=== PATIENT | male | born 1980 | race Two or more races ===

== ENCOUNTER 2020-07-20 11:04 | Emergency (ER) | payer SELFPAY ==
[2020-07-20 11:24] VITALS: BP 136/74; PULSE 98; RESP 18; TEMP 37.1; O2SAT 98; BMI 30.1
[2020-07-20] MEDS: cephALEXin 500 MG CAPSULE PO (12:13)
[2020-07-20] MEDS: Lidocaine HCl 1 % MPF 5 ML VIAL SUBCUT (12:13)
[2020-07-20] MEDS: Ibuprofen 800 MG TABLET PO (12:13)
--- NOTE | 2020-07-20 12:37 | ED_ITS ---
HPI - Skin/Abscess/Foreign Bdy General Chief complaint: Skin/Abscess/Foreign Body Stated complaint: cyst Time Seen by Provider: 07/20/20 12:02 Source: patient Mode of arrival: ambulatory Limitations: no limitations History of Present Illness HPI narrative: States tender area at the gluteal cleft area for the past s everal days. States he has had abscess in this area before. Denies any fever or chills. MD complaint: abscess/boil Onset (ago): day(s) (2 days ) Tetanus up to date: yes Severity: similar to previous episodes Relieving factors: none Associated symptoms: denies other symptoms Treatments prior to arrival: none Related Data Previous Rx's Medication Instructions Recorded cephalexin [Keflex] 500 mg PO Q8H 10 Days #30 cap 07/20/20 ibuprofen 800 mg PO Q8H PRN #30 tab 07/20/20 sulfamethoxazole-trimethoprim 1 tab PO Q12H 7 Days #14 tab 07/20/20 [Bactrim DS] Allergies Allergy/AdvReac Type Severity Reaction Status Date / Time No Known Allergies Allergy Verified 07/20/20 11:27 [No Known Allergies*] Review of Systems Review of Systems: Constitutional: No Weight loss, No Fever, No Chills, No Night Sweats, No Fatigue, No Malaise ENT/Mouth: No Hearing loss, No Ear Pain, No Nasal Congestion, No Sinus Pain, No Hoarseness, No sore throat, No Rhinorrhea, No Swallowing Difficulty Eyes: No Eye Pain, No Swelling, No Redness, No Foreign Body, No Discharge, No Vision Changes Cardiovascular: No Chest Pain, No SOB, No Dyspnea on Exertion, No Orthopnea, No Edema, No Palpitations Respiratory: No Cough, No Sputum, No Wheezing, No Smoke Exposure, No Dyspnea Gastrointestinal: No Nausea, No Vomiting, No Diarrhea, No Constipation, No ab dominal Pain Genitourinary: No Dysuria, No Urinary Frequency, No Hematuria, No Urinary Incontinence, No Urgency, No Flank Pain, No Urinary Flow Changes, No Hesitancy Musculoskeletal: No joint pain, No Myalgias, No Joint Swelling Skin: No Skin Lesions, No rash, As noted in HPI Neuro: No Weakness, No Numbness, No Paresthesias, No Loss of Consciousness, No Dizziness, No Headache Psych: No Social Issues Heme/Lymph: No Bruising, No Bleeding,No Lymphadenopathy Endocrine: No Polyuria, No Polydipsia, No Temperature Intolerance Yes all other systems are reviewed and are negative [facility] Social History Social History Advance Directives: No Advance Directives Information Provided: No Physical Exam Vital Signs: Vital Signs: Last Vital Signs Temp 98.7 F 07/20/20 11:24 Pulse 98 07/20/20 11:24 Resp 18 07/20/20 11:24 BP 136/74 07/20/20 11:24 Pulse Ox 98 07/20/20 11:24 Body Mass Index 30.1 Reviewed Const: General: cooperative and healthy appearing; No acute distress or intoxicated appearing Nutritional Appearance: average body habitus Orientation/consciousness: patient oriented x3 HENMT: Head: Yes normal to inspection Ears: hearing grossly normal bilaterally Chest: Chest palpation & inspection: normal inspection of the chest Resp: Effort & Inspection: normal respiratory effort Cardio: Jugular venous distension: no JVD Rhythm: regular rhythm Heart sounds: S1 normal heart sound present and S2 normal heart sound present : General: Yes no CVA tenderness Back/Spine/Pelvis: Back: no CVA tenderness Skin: General skin exam: no rashes or lesions noted Neuro: General: patient oriented x3 Extrem: General: Yes normal to inspection Upper/lower leg/hip images: 1. Slightly indurated area starting at the gluteal cleft. This measures 2 cm x 6 cm linearly down towards the gluteal cleft. There is erythema directly over this area but no erythema extending away from this. There is tender palpation. Course Course Course Narrative: Pilonidal cyst with superficial cellulitis indurated site lanced using sterile technique with local anesthetic with drainage of slight purulent discharge and subsequently packed and dry sterile dressing applied. Patient tolerated procedure very well he was given 1st dose of antibiotics here as well as ibuprofen. Was given work note. Please refer to the full procedure note for the I and D of the pilonidal abscess. Patient instructed her in 2 days for packing removal/checked. Procedures Abscess I/D Site: other ( Pilonidal cyst) Local Anesthetic: lidocaine 1% Amount of anesthesia used (mL): 5 Technique: incised with blade Amount of fluid expressed (mL): 6 Irrigation: Yes Packing used?: plain Complications: other ( no complications.) Discharge Plan Discharge Clinical Impression: Cyst, pilonidal, with abscess Cellulitis Qualifiers: Site of cellulitis: buttock Qualified Code(s): L03.317 - Cellulitis of buttock Patient Disposition: Home, Self-Care Instructions: Pilonidal Cyst (ED), Abscess (ED) Additional Instructions: warm compresses Change top dressing twice a day and more frequently for become soiled Leave the packing in place over the next 2 days Return in 2 days for packing removal/ wound check Take antibiotic as prescribed Return sooner if any concerns worsening symptoms Thank you Prescriptions: New ibuprofen 800 mg tablet 800 mg PO Q8H PRN (Reason: pain) Qty: 30 RF: 0 sulfamethoxazole-trimethoprim [Bactrim DS] 800-160 mg tablet 1 tab PO Q12H 7 Days Qty: 14 RF: 0 cephalexin [Keflex] 500 mg capsule 500 mg PO Q8H 10 Days Qty: 30 RF: 0 Referrals: Jaden Pastor, [employer]CHIT[employer] [Emergency Midlevel Provider] - 2 days ( pilonidal cyst/packing will) Stand Alone Forms: Work/School Release Interventions: ED Discharge Assessment Last Done: 07/20/20 12:49 Discharge Date/Time: 07/20/20 12:51
== END 2020-07-20 12:51 | disposition home or self-care (01) ==
PROVIDERS: Emergency Provider Emergency Medicine
DX: L05.01 Pilonidal cyst with abscess (principal); L03.317 Cellulitis of buttock
CPT/HCPCS: 10080; 99283; 99284

== ENCOUNTER 2020-07-22 11:07 | Emergency (ER) | payer SELFPAY ==
[2020-07-22 11:14] VITALS: BP 120/73; PULSE 100; RESP 14; TEMP 36.6; O2SAT 99; BMI 29.9
--- NOTE | 2020-07-22 11:14 | ED.WOUNDLAC ---
HPI - Wound/Laceration General Chief Complaint: Wound/Laceration Stated Complaint: WOUND CHECK Time Seen by Provider: 07/22/20 11:13 Source: patient Mode of arrival: ambulatory Limitations: no limitations History of Present Illness HPI narrative: 40 y/o male presenting for wound re-check. He was seen here on 07/20 - had pilonidal cyst incised, drained and backed. He was prescribed Keflex and Bactrim. He reports feeling much better but he also reports a fever of 102 last night. No increased drainage. Pain is improving. Onset (ago): day(s) (4) Location: back (upper buttocks ) Body four view annotation: 1. wound w/ packing Patient tetanus UTD: Yes Associated symptoms: pain Treatments prior to arrival: bandage Related Data Previous Rx's Medication Instructions Recorded cephalexin [Keflex] 500 mg PO Q8H 10 Days #30 cap 07/20/20 ibuprofen 800 mg PO Q8H PRN #30 tab 07/20/20 sulfamethoxazole-trimethoprim 1 tab PO Q12H 7 Days #14 tab 07/20/20 [Bactrim DS] Allergies Allergy/AdvReac Type Severity Reaction Status Date / Time No Known Allergies Allergy Verified 07/20/20 11:27 [No Known Allergies*] Review of Systems Review of Systems: Constitutional: No Fever, No Chills Cardiovascular: No Chest Pain, No SOB Respiratory: No Cough, No Sputum Gastrointestinal: No Nausea, No Vomiting, No Diarrhea, No abdominal Pain Musculoskeletal: No joint pain, No Myalgias Skin: No Skin Lesions, No rash , +wound Heme/Lymph: No Bruising, No Lymphadenopathy PMFSH Past Medical History Attestation statement: The following information was validated with the patient. Social History Social History Advance Directives: No Advance Directives Information Provided: No Physical Exam Vital Signs: Vital Signs: Last Vital Signs Temp 98 F 07/22/20 11:14 Pulse 100 07/22/20 11:14 Resp 14 07/22/20 11:14 BP 120/73 07/22/20 11:14 Pulse Ox 99 07/22/20 11:14 Body Mass Index 29.9 Appearance: Alert. Oriented X3. No acute distress. HEENT: normal inspection CVS: Normal heart rate and rhythm. Pulses normal. Respiratory: No respiratory distress. Skin: Skin warm and dry. Normal skin color. Normal skin turgor. No rashes. Back: upper buttock/low lumbar area with large 6-7 cm area of erythema, tenderness with central fluctuance. small prior incision distally noted. no drainage. Neuro: Oriented X 3. Non-focal Course Course Course Narrative: 40 y/o male with infected pilonidal cyst s/p I&D on 07/20 presenting for wound recheck and packing change. Abscess is increased in size, requiring additional drainage and packing. See I&D note. Culture sent. No septic at this time. Will continue to broad spectrum abx and patient will return in 2 days for re-evaluation. If he has persistent fevers he was instructed to return to ER sooner. Patient expressed understanding and he was encouraged to f/u with General Surgery given this has been a recurrent issue over the last 4 years. Stable for d/c. Critical Care Time Critical Care Time Critical Care Time: No Discharge Plan Discharge Clinical Impression: Pilonidal cyst with abscess Patient Disposition: Home, Self-Care Additional Instructions: Continue to take the previously prescribed antibiotics. Monitor for worsening signs of infection including fevers, redness, warmth, increased drainage or pain. If these develop come back to the ER right away. Come back to the ER in 2 days for another wound evaluation and packing removal. Recommend follow up with General Surgery for managment. Prescriptions: No Action ibuprofen 800 mg tablet 800 mg PO Q8H PRN (Reason: pain) Qty: 30 RF: 0 sulfamethoxazole-trimethoprim [Bactrim DS] 800-160 mg tablet 1 tab PO Q12H 7 Days Qty: 14 RF: 0 cephalexin [Keflex] 500 mg capsule 500 mg PO Q8H 10 Days Qty: 30 RF: 0 Referrals: Isa Macedo MD [Physician] - 2 days Stand Alone Forms: Work/School Release
[2020-07-22] MEDS: Lidocaine HCl 2 % MPF 5 ML VIAL INFILTRATI (12:14)
--- NOTE | 2020-07-22 12:17 | PC.NURSE ---
cy luo in to assess, perform i&d, obtain wound cx, pack wound site and apply dsd
== END 2020-07-22 12:34 | disposition home or self-care (01) ==
LOC: HO.ED 11:28
PROVIDERS: Emergency Provider Emergency Medicine
DX: L05.01 Pilonidal cyst with abscess (principal)
CPT/HCPCS: 87071; 87205; 99283; 99284

== ENCOUNTER 2020-08-18 11:46 | Emergency (ER) | payer SELFPAY ==
[2020-08-18 14:05] VITALS: BP 139/80; PULSE 81; RESP 16; TEMP 36.9; O2SAT 99; BMI 30.1
[2020-08-18] MEDS: Lidocaine HCl 1 % MPF 5 ML VIAL SUBCUT ×2 (15:06)
--- NOTE | 2020-08-18 15:52 | ED.SKABFB ---
HPI - Skin/Abscess/Foreign Bdy General Chief complaint: Skin/Abscess/Foreign Body Stated complaint: cyst Time Seen by Provider: 08/18/20 14:33 Source: patient Mode of arrival: ambulatory History of Present Illness HPI narrative: 40-year-old male with a past medical history pilondial cyst S/P two I&D's last month presenting to the ED complaining of recurrent abscess/cyst to back x4 days. Denies drainage from area. Reports chills. Denies fever, abdominal pain, pain with bowel movement/rectal involvement MD complaint: abscess/boil Related Data Previous Rx's Medication Instructions Recorded cephalexin [Keflex] 500 mg PO Q8H 10 Days #30 cap 07/20/20 ibuprofen 800 mg PO Q8H PRN #30 tab 07/20/20 sulfamethoxazole-trimethoprim 1 tab PO Q12H 7 Days #14 tab 07/20/20 [Bactrim DS] amoxicillin-pot clavulanate 1 tab PO Q12H 7 Days #14 tab 08/18/20 [Augmentin] doxycycline hyclate 100 mg PO BID 7 Days #14 tab 08/18/20 Allergies Allergy/AdvReac Type Severity Reaction Status Date / Time No Known Allergies Allergy Verified 07/20/20 11:27 [No Known Allergies*] Review of Systems Review of Systems: Constitutional: No Weight loss, No Fever, + Chills Gastrointestinal: No Nausea, No Vomiting, No Diarrhea, No Constipation, No Abdominal pain Skin: + abscess Yes all other systems are reviewed and are negative PMFSH Past Medical History Attestation statement: The following information was validated with the patient. Surgical History (Updated 08/18/20 @ 14:07 by Shy Pablo) H/O thumb surgery Social History Social History Advance Directives: No Advance Directives Information Provided: No Physical Exam Vital Signs: Vital Signs: Last Vital Signs Temp 98.4 F 08/18/20 14:05 Pulse 81 08/18/20 14:05 Resp 16 08/18/20 14:05 BP 139/80 08/18/20 14:05 Pulse Ox 99 08/18/20 14:05 Body Mass Index 30.1 Const: General: cooperative, healthy appearing and no acute distress Orientation/consciousness: patient oriented x3 Limitations: no limitations HENMT: Head: Yes normal to inspection Ears: hearing grossly normal bilaterally General nose exam: Normal external nose present Face and sinus: Yes normal facial exam Eyes: General: appearance normal, both eyes and all related structures EOM: EOMs intact bilaterally Neck: Neck: Yes normal visual inspection Resp: Effort & Inspection: normal respiratory effort GI: Inspection: Yes normal to inspection : Other: Infected pilonidal abscess noted with fluctuance and induration. Mild surrounding cellulitis. No rectal involvement Skin: Rashes: no rashes Neuro: General: patient oriented x3 Gait exam (Neuro): Normal gait present Extrem: General: Yes normal to inspection Procedures Abscess I/D Site: back Local Anesthetic: lidocaine 1% Amount of anesthesia used (mL): 6 Technique: incised with blade Sent for culture/gram staining?: No Packing used?: iodoform MDM - Skin/Abscess/Foreign Bdy MDM Narrative Medical decision making narrative: On exam VSS, in NAD, pilonidal abscess/cyst noted with mild surrounding cellulitis. Will perform I & D. Will change antibiotics due to recent antibiotic use. Discussed with patient importance of following up with surgeon which he verbalized Discharge Plan Discharge Clinical Impression: Abscess Patient Disposition: Home, Self-Care Instructions: Abscess (ED), Abscess Follow-up (ED) Additional Instructions: You had infected abscess in her pilonidal region Augmentin and doxycycline or antibiotics, take as prescribed You need to return to the emergency department in 2 days to have her packing removed If you develop fever, chills, area begins to swell/drain pus, return to the ED sooner It is normal for the area to have slight drainage for the next 24 hours, however if it is worsening or persistent return to the ED sooner Prescriptions: New doxycycline hyclate 100 mg tablet 100 mg PO BID 7 Days Qty: 14 RF: 0 amoxicillin-pot clavulanate [Augmentin] 875-125 mg tablet 1 tab PO Q12H 7 Days Qty: 14 RF: 0 No Action ibuprofen 800 mg tablet 800 mg PO Q8H PRN (Reason: pain) Qty: 30 RF: 0 sulfamethoxazole-trimethoprim [Bactrim DS] 800-160 mg tablet 1 tab PO Q12H 7 Days Qty: 14 RF: 0 cephalexin [Keflex] 500 mg capsule 500 mg PO Q8H 10 Days Qty: 30 RF: 0 Referrals: Mima,Mame, MD [Physician] - 1 week Physician,None [Primary Care Provider] - 2 days (Return to the ED in 2 days for packing removal) Interventions: ED Discharge Assessment Last Done: 08/18/20 16:08 Discharge Date/Time: 08/18/20 16:08
== END 2020-08-18 16:08 | disposition home or self-care (01) ==
PROVIDERS: Emergency Provider Emergency Medicine Emergency Medical Services
DX: L05.01 Pilonidal cyst with abscess (principal); L03.312 Cellulitis of back [any part except buttock and flank]
CPT/HCPCS: 10080; 99283; 99284

== ENCOUNTER 2020-09-22 11:31 | Outpatient (REF) | payer OTHER, SELFPAY | END 2020-09-22 11:32 | disposition home or self-care (01) | LOC: HO.LAB 11:31 | PROVIDERS: Visit Provider Internal Medicine | DX: Z20.822 Contact with and (suspected) exposure to COVID-19 (principal) | CPT/HCPCS: 36415; C9803; U0003; U0005 ==

== ENCOUNTER 2021-06-14 19:10 | Emergency (ER) | payer SELFPAY ==
[2021-06-14 19:25] VITALS: BP 153/75; PULSE 120; RESP 18; O2SAT 94; BMI 30.6
[2021-06-14 23:05] VITALS: BP 126/70; PULSE 118; RESP 20; TEMP 37.4; O2SAT 96
[2021-06-14 23:46] LABS: Appearance Urine CLEAR; Color Urine YELLOW; Glucose Urine UA NEG (NEG); Leukocyte Esterase Urine NEG (NEG); Nitrite Urine NEG (NEG); Specific Gravity - Urine >= 1.030 (1.005-1.025); UACC Culture Trigger NO; Urine Blood TRACE (NEG); Urine Ketones 5 MG/DL (NEG); Urine Protein NEG (NEG-TRACE)
[2021-06-14 23:52] LABS: Bacteria Urine TRACE /LPF; Mucus Urine 1+ /LPF; Squamous Epithelial Cell Urine TRACE /LPF; WBC Urine 0-2 /HPF (0-4)
--- NOTE | 2021-06-15 00:26 | PC.NURSE ---
RILEY HENNESSY PERFORMING US AT BEDSIDE TO ABSCESS AREA ON BACK.
--- NOTE | 2021-06-15 01:19 | ED.SKABFB ---
HPI - Skin/Abscess/Foreign Bdy General Chief complaint: Skin/Abscess/Foreign Body Stated complaint: cyst on back Time Seen by Provider: 06/15/21 00:26 Source: patient Mode of arrival: ambulatory Limitations: no limitations History of Present Illness HPI narrative: 41-year-old male with no past medical history presents to ED for pilonidal abscess that has been increasing in size for the past 4 days. Patient states having recurring pilonidal abscess. Patient has no insurance so he can't follow up with surgeon. Patient states low-grade fever and chills. Patient states no nausea vomiting. Related Data Previous Rx's Medication Instructions Recorded cephalexin 500 mg capsule (Keflex) 500 mg PO Q8H 10 Days #30 cap 07/20/20 ibuprofen 800 mg tablet 800 mg PO Q8H PRN #30 tab 07/20/20 sulfamethoxazole 800 1 tab PO Q12H 7 Days #14 tab 07/20/20 mg-trimethoprim 160 mg tablet (Bactrim DS) amoxicillin 875 mg-potassium 1 tab PO Q12H 7 Days #14 tab 08/18/20 clavulanate 125 mg tablet (Augmentin) doxycycline hyclate 100 mg tablet 100 mg PO BID 7 Days #14 tab 08/18/20 cephalexin 500 mg capsule 500 mg PO QID #28 cap 06/15/21 doxycycline hyclate 100 mg capsule 100 mg PO BID 7 Days #14 cap 06/15/21 oxycodone-acetaminophen 5 mg-325 1 tab PO TID PRN #9 tab 06/15/21 mg tablet (Percocet) Allergies Allergy/AdvReac Type Severity Reaction Status Date / Time No Known Allergies Allergy Verified 07/20/20 11:27 [No Known Allergies*] Review of Systems Review of Systems: Yes all other systems are reviewed and are negative Constitutional: Constitutional: Reports as per HPI and Reports no additional constitutional complaints Eyes: Eyes: Reports as per HPI and Reports no additional eye complaints ENT: Reports system reviewed and no additional complaints, except as documented and Reports as per HPI Cardiovascular: Cardiovascular: Reports as per HPI and Reports no additional cardiovascular complaints Respiratory: Respiratory: Reports as per HPI and Reports no additional respiratory complaints Gastrointestinal: Gastrointestinal: Reports as per HPI and Reports no additional gastrointestinal complaints Comments: Pilonidal abscess Genitourinary: Genitourinary: Reports no additional male genitourinary complaints and Reports as per HPI Musculoskeletal: Musculoskeletal: Reports no additional musculoskeletal complaints and Reports as per HPI Neurologic: Reports system reviewed and no additional complaints, except as documented Psychiatric: Psychiatric: Reports no additional psychiatric complaints and Reports as per HPI [facility] Past Medical History Surgical History (Updated 08/18/20 @ 14:07 by Shy Pablo) H/O thumb surgery Social History Social History Advance Directives: No Physical Exam Vital Signs: Vital Signs: Last Vital Signs Temp 99.3 F 06/14/21 23:05 Pulse 118 H 06/14/21 23:05 Resp 20 06/14/21 23:05 BP 126/70 06/14/21 23:05 Pulse Ox 96 06/14/21 23:05 Body Mass Index 30.6 Const: General: cooperative, healthy appearing, comfortable, no acute distress, well developed, alert, awake and Physically active Orientation/consciousness: patient oriented x3 HENMT: Head: Yes normal to inspection, Yes No palpable skull fracture present, Yes normocephalic, Yes atraumatic and No abrasion Eyes: General: appearance normal, both eyes and all related structures Neck: Neck: Yes normal visual inspection, Yes full ROM, Yes no lymphadenopathy, Yes no meningeal signs, Yes trachea midline, Yes supple and No tender Chest: Chest palpation & inspection: normal inspection of the chest and normal palpation of entire chest wall Resp: Effort & Inspection: normal respiratory effort and able to speak in complete sentences Auscultation: clear to auscultation bilaterally Cardio: Jugular venous distension: no JVD Heart sounds: S1 normal heart sound present and S2 normal heart sound present GI: Inspection: Yes normal to inspection and No abdominal wall ecchymosis Palpation (GI): Soft to palpation, not firm, nontender, no guarding and not rigid : General: No CVA tenderness and Yes no CVA tenderness Back/Spine/Pelvis: Back: no CVA tenderness, No CVA tenderness and No back tenderness Back/spine/pelvis image: 1. Pilonidal abscess large, erythematous, tender, fluctuance. Bedside ultrasound shows large pus collection pocket. Skin: General skin exam: no rashes or lesions noted and elasticity normal Neuro: General: patient oriented x3, gait normal, no meningeal signs and CN's II-XI intact bilaterally Cranial nerves: Yes CN's II-XII intact bilaterally Extrem: General: Yes normal to inspection and Yes full ROM Psych: Appearance: grossly normal, well kempt and not disheveled Course Course Course Narrative: Bedside ultrasound shows large amount of fluid. Reevaluation(s) Reevaluation #1: 10 mL of lidocaine 2% anesthesia used. Wound cleaned with sterile saline Betadine iodine. Size 11 blade used for incision. Large copious amount of pus yellow green discharge was squeezed. Forceps used for deeper pockets with produce more pus. Abscess clean with normal saline. Packing placed. Patient will be discharged with antibiotics told to follow-up with surgery. Patient given Tdap Time: 01:21 MDM - Skin/Abscess/Foreign Bdy MDM Narrative Medical decision making narrative: Abscess Lab Data Labs: Lab Results 06/14/21 Range/Units 23:25 Urine Color YELLOW Urine Appearance CLEAR Urine pH 6.0 (5.0-8.0) Ur Specific [place] >= 1.030 H (1.005-1.025) Urine Protein NEG (NEG-TRACE) MG/DL Urine Glucose (UA) NEG (NEG) MG/DL Urine Ketones 5 (NEG) MG/DL Urine Blood TRACE (NEG) Urine Nitrite NEG (NEG) Ur Leukocyte Esterase NEG (NEG) Urine RBC 1-4 (0) /HPF Urine WBC 0-2 (0-4) /HPF Ur Squamous Epith Cells TRACE /LPF Urine Bacteria TRACE /LPF Urine Mucus 1+ /LPF Discharge Plan Discharge Clinical Impression: Abscess of skin or subcutaneous tissue, Pilonidal abscess Patient Disposition: Home, Self-Care Instructions: Pilonidal Cyst (ED), Abscess (ED) Additional Instructions: Return to the ED in 2 days for wound re-evaluation and packing. Return to the ED for severe pain, nausea, vomiting, fever, chills, or any other concerning symptoms. Prescriptions: New cephalexin 500 mg capsule 500 mg PO QID Qty: 28 RF: 0 doxycycline hyclate 100 mg capsule 100 mg PO BID 7 Days Qty: 14 RF: 0 oxycodone-acetaminophen [Percocet] 5-325 mg tablet 1 tab PO TID PRN (Reason: pain) Qty: 9 RF: 0 No Action doxycycline hyclate 100 mg tablet 100 mg PO BID 7 Days Qty: 14 RF: 0 amoxicillin-pot clavulanate [Augmentin] 875-125 mg tablet 1 tab PO Q12H 7 Days Qty: 14 RF: 0 ibuprofen 800 mg tablet 800 mg PO Q8H PRN (Reason: pain) Qty: 30 RF: 0 sulfamethoxazole-trimethoprim [Bactrim DS] 800-160 mg tablet 1 tab PO Q12H 7 Days Qty: 14 RF: 0 cephalexin [Keflex] 500 mg capsule 500 mg PO Q8H 10 Days Qty: 30 RF: 0 Referrals: Julio Moore MD [Physician] - 2 days (Recurrent pilondal abscess) Stand Alone Forms: Work/School Release Interventions: ED Discharge Assessment Last Done: 06/15/21 01:45 Discharge Date/Time: 06/15/21 01:51 Print Language: Stateless
[2021-06-15] MEDS: Diphth,Pertus(ACell),Tet Adult 0.5 ML SYRINGE IM (01:30)
[2021-06-15] MEDS: oxyCODONE HCl Immed Release 5 MG TABLET PO (01:30)
[2021-06-15] MEDS: Lidocaine HCl 2 % MPF 5 ML VIAL INFILTRATI ×2 (01:31)
--- NOTE | 2021-06-15 01:44 | PC.NURSE ---
PT ABSCESS DRAINED LARGE COPIOUS AMOUNTS OF PUSS REMOVED PACKING APPLIED BY RILEY HENNESSY AND MICHELLE.
== END 2021-06-15 01:51 | disposition home or self-care (01) ==
PROVIDERS: Emergency Provider Emergency Medicine
DX: L05.01 Pilonidal cyst with abscess (principal)
CPT/HCPCS: 10080; 81001; 87071; 87205; 90471; 90715; 99284

== ENCOUNTER 2021-06-17 12:16 | Emergency (ER) | payer OTHER, SELFPAY ==
[2021-06-17 12:18] VITALS: BP 133/83; PULSE 86; RESP 19; TEMP 36.6; O2SAT 98; BMI 29.9
--- NOTE | 2021-06-17 14:33 | ED.RECABL ---
HPI - Recheck/Abnormal Lab/Rx General Chief Complaint: Wound/Laceration Stated Complaint: wound check Time Seen by Provider: 06/17/21 12:25 Source: patient and family Mode of arrival: ambulatory Limitations: no limitations History of Present Illness MD complaint: wound re-check (Packing) Initial visit (ago): day(s) (Two days ago on 06/15/21) Initial visit for: cellulitis and abscess Returns today for: wound recheck, cellulitis follow-up and other (Packing removal) Symptoms since prior visit: no new symptoms Context: planned re-check Associated symptoms: none Treatments prior to arrival: other (Doxycycline and Keflex And Percocet and taking as prescribed) Related Data Previous Rx's Medication Instructions Recorded cephalexin 500 mg capsule (Keflex) 500 mg PO Q8H 10 Days #30 cap 07/20/20 ibuprofen 800 mg tablet 800 mg PO Q8H PRN #30 tab 07/20/20 sulfamethoxazole 800 1 tab PO Q12H 7 Days #14 tab 07/20/20 mg-trimethoprim 160 mg tablet (Bactrim DS) amoxicillin 875 mg-potassium 1 tab PO Q12H 7 Days #14 tab 08/18/20 clavulanate 125 mg tablet (Augmentin) doxycycline hyclate 100 mg tablet 100 mg PO BID 7 Days #14 tab 08/18/20 cephalexin 500 mg capsule 500 mg PO QID #28 cap 06/15/21 doxycycline hyclate 100 mg capsule 100 mg PO BID 7 Days #14 cap 06/15/21 oxycodone-acetaminophen 5 mg-325 1 tab PO TID PRN #9 tab 06/15/21 mg tablet (Percocet) Allergies Allergy/AdvReac Type Severity Reaction Status Date / Time No Known Allergies Allergy Verified 07/20/20 11:27 [No Known Allergies*] Review of Systems Review of Systems: Constitutional : No Fever, No Chills, Cardiovascular : No Chest Pain, No SOB Respiratory : No Dyspnea Gastrointestinal : No abdominal pain Musculoskeletal : No Joint Swelling Skin : positive skin wound that is healing with packing place, no skin laceration, No Foreign bodies, No rash, No surrounding erythema Neuro : No Weakness, No Numbness/tingling Psych : No SI/HI/thoughts of self injury Yes all other systems are reviewed and are negative PMFSH Past Medical History Attestation statement: The following information was validated with the patient. Surgical History H/O thumb surgery Social History Social History Advance Directives: No Physical Exam Vital Signs: Vital Signs: Last Vital Signs Temp 98 F 06/17/21 12:18 Pulse 86 06/17/21 12:18 Resp 19 06/17/21 12:18 BP 133/83 06/17/21 12:18 Pulse Ox 98 06/17/21 12:18 Body Mass Index 29.9 vital signs have been reviewed as normal and appeared to be correct. Blood pressure normal Heart rate normal. Respiration rate normal. Temperature normal. Oxygen saturation normal. Appearance: Alert. Oriented X3. No acute distress. Head: Normal external exam. Normocephalic. Atraumatic. Eyes: PERRLA. EOMI. Conjunctiva and sclera normal. Eyelids normal. ENT: Pharynx normal. Uvula midline. Moist mucous membranes. Neck: Normal inspection. Neck supple. FROM. CVS: Normal heart rate and rhythm. Respiratory: No respiratory distress. Painless inspiration. Skin: Skin warm and dry. Normal skin color. Normal skin turgor. To pilonidal aspect patient has packing in place when I removed the packing no purulent drainage is noted. No rashes/lesions/lacerations noted. Extremities: Extremities exhibit normal range of motion. Extremities nontender. Neuro: Oriented X 3. No motor deficit. No sensory deficit. Reflexes normal. Normal steady gait. No focal neuro deficits noted. Course Course Course Narrative: Patient now status post packing removal. Patient tolerated procedure well. No complications. No additional packing indicated at this time. It was irrigated. No additional drainage noted. Therefore will DC home with instructions return if any new or worsening symptoms follow-up with general surgeon and to continue taking his antibiotics as previously prescribed. Patient and significant other at bedside understand and agree to this plan. MDM - Recheck/Abnormal Lab/Rx Medical Records Attestation: I reviewed the patient's medical records. Discharge Plan Discharge Clinical Impression: Visit for wound check, Abscess packing removal Patient Disposition: Home, Self-Care Instructions: Abscess Follow-up (ED) Prescriptions: No Action doxycycline hyclate 100 mg tablet 100 mg PO BID 7 Days Qty: 14 RF: 0 amoxicillin-pot clavulanate [Augmentin] 875-125 mg tablet 1 tab PO Q12H 7 Days Qty: 14 RF: 0 ibuprofen 800 mg tablet 800 mg PO Q8H PRN (Reason: pain) Qty: 30 RF: 0 sulfamethoxazole-trimethoprim [Bactrim DS] 800-160 mg tablet 1 tab PO Q12H 7 Days Qty: 14 RF: 0 cephalexin [Keflex] 500 mg capsule 500 mg PO Q8H 10 Days Qty: 30 RF: 0 cephalexin 500 mg capsule 500 mg PO QID Qty: 28 RF: 0 doxycycline hyclate 100 mg capsule 100 mg PO BID 7 Days Qty: 14 RF: 0 oxycodone-acetaminophen [Percocet] 5-325 mg tablet 1 tab PO TID PRN (Reason: pain) Qty: 9 RF: 0 Referrals: Julio Moore MD [Physician] - 2 days (For recurrent pilonidal abscesses call to make a follow-up appointment within the next month) Stand Alone Forms: Work/School Release Print Language: Lithuanian
== END 2021-06-17 14:44 | disposition home or self-care (01) ==
PROVIDERS: Emergency Provider Emergency Medicine Emergency Medical Services
DX: Z48.01 Encounter for change or removal of surgical wound dressing (principal)
CPT/HCPCS: 99283

== ENCOUNTER 2023-01-13 21:37 | Inpatient (IN) | payer OTHER, SELFPAY ==
--- NOTE | ~2023-01-13 | XR_ITS ---
EXAMINATION: XR CHEST CLINICAL INFORMATION: Dyspnea COMPARISON: None available. TECHNIQUE: 2 views of the chest were obtained. FINDINGS: Cardiac the mediastinal contours are within normal limits for technique. No consolidation, pneumothorax, or pleural effusion. Bronchial wall thickening is suspected in the perihilar regions. No acute osseous findings. 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 XR/XR chest 2V IMPRESSION: Bronchial wall thickening can be seen with a small airways process such as asthma or atypical/viral infection. No focal consolidation.
[2023-01-13 21:43] VITALS: BP 104/81; PULSE 100; RESP 18; TEMP 36; O2SAT 97; BMI 34.5
[2023-01-13 22:08] LABS: MANUAL DIFF FLAG NO
[2023-01-13 22:10] LABS: Basophils Percent Auto 0.3 % (0-2); Eosinophils Absolute Auto 0.1 X10*3/uL (0.0-0.4); Eosinophils Percent Auto 0.6 % (0-4); Hemoglobin 13.4 g/dl (14.0-18.0); Imm Gran Abs Auto 0.02 X10*3/uL (0.00-0.03); Imm Gran Pct Auto 0.2 % (0.0-0.4); Lymphocytes Absolute Auto 2.6 X10*3/uL (1.2-4.9); Lymphocytes Percent Auto 27.4 % (20-40); Mean Corpuscular HGB Conc 32.7 g/dl (31.0-36.0); Mean Corpuscular Hemoglobin 31.5 pg (27.0-33.0); Mean Corpuscular Volume 96.5 fL (80.0-98.0); Mean Platelet Volume 9.9 fL (9.4-12.4); Monocytes Absolute Auto 0.5 X10*3/uL (0.1-1.2); Monocytes Percent Auto 5.8 % (2-11); Neutrophils Absolute Auto 6.1 x10*3/uL (2.0-8.3); Neutrophils Percent Auto 65.7 % (45-73); Platelet Count 226 X10*3/uL (160-400); Red Blood Count 4.25 X10*6/uL (4.60-5.80); Red Cell Distribution Width 14.5 % (11.0-16.0); White Blood Count 9.3 X10*3/uL (4.8-10.8)
[2023-01-13 22:29] LABS: Alanine Aminotransferase 35 U/L (0-40); Albumin Level 3.9 g/dL (3.5-5.0); Alkaline Phosphatase 72 U/L (39-117); Anion Gap 12 (12-20); Aspartate Amino Transferase 29 U/L (5-37); Bilirubin Total 0.3 mg/dL (0.0-1.0); Blood Urea Nitrogen 13 mg/dL (9-16); Carbon Dioxide 23 mmol/L (22-29); Chloride 110 mmol/L (96-108); Creatinine Clr Calc Pharmacy 128.7; Estimated Glomerular Filt Rate > 60; Glucose Random 113 mg/dL (60-115); Potassium 4.4 mmol/L (3.3-5.1); Sodium 141 mmol/L (135-145); Total Protein 6.7 g/dL (6.5-8.0)
[2023-01-13 22:32] LABS: B Type Natriuretic Peptide 540 pg/mL (<100)
[2023-01-14 01:13] VITALS: BP 125/83; PULSE 93; RESP 18; TEMP 36.8; O2SAT 96
--- NOTE | 2023-01-14 01:36 | ED_ITS ---
HPI - SOB/Dyspnea General Chief Complaint: Dyspnea Stated Complaint: difficulty breathing/ swollen feet Time Seen by Provider: 01/14/23 01:20 Source: patient and family Mode of arrival: ambulatory Limitations: no limitations History of Present Illness HPI Narrative: 42-year-old male smoker came in for evaluation of shortness of breath. For the past months patient been having exertional dyspnea, PND, bilateral +2 edema to lower extremities. No chest pain, no recent sickness, no sick contact. No history of CHF. Related Data Previous Rx's Medication Instructions Recorded cephalexin 500 mg capsule (Keflex) 500 mg PO Q8H 10 days #30 caps 07/20/20 ibuprofen 800 mg tablet 800 mg PO Q8H PRN pain #30 tabs 07/20/20 sulfamethoxazole 800 1 tab PO Q12H 7 days #14 tabs 07/20/20 mg-trimethoprim 160 mg tablet (Bactrim DS) amoxicillin 875 mg-potassium 1 tab PO Q12H 7 days #14 tabs 08/18/20 clavulanate 125 mg tablet (Augmentin) doxycycline hyclate 100 mg tablet 100 mg PO BID 7 days #14 tabs 08/18/20 cephalexin 500 mg capsule 500 mg PO QID #28 caps 06/15/21 doxycycline hyclate 100 mg capsule 100 mg PO BID 7 days #14 caps 06/15/21 oxycodone-acetaminophen 5 mg-325 1 tab PO TID PRN pain #9 tabs 06/15/21 mg tablet (Percocet) Allergies Allergy/AdvReac Type Severity Reaction Status Date / Time No Known Allergies Allergy Verified 01/13/23 21:43 [No Known Allergies*] Review of Systems Review of Systems: All other systems are reviewed and are negative Constitutional: Reports as per HPI and Reports no additional constitutional complaints Eyes: Reports as per HPI and Reports no additional eye complaints Reports system reviewed and no additional complaints, except as documented Cardiovascular: Reports as per HPI and Reports no additional cardiovascular complaints Respiratory: Reports as per HPI and Reports no additional respiratory complaints Gastrointestinal: Reports as per HPI and Reports no additional gastrointestinal complaints Genitourinary: Reports no additional female genitourinary complaints Musculoskeletal: Reports no additional musculoskeletal complaints Skin/Breast: Reports system reviewed and no additional complaints, except as docu Psychiatric: Reports no additional psychiatric complaints Endocrine: Reports no additional endocrine complaints Hematologic/Lymphatic: Reports no additional hematologic/lymphatic complaints Allergic/Immunologic: Reports no additional allergic/immunologic complaints Reports system reviewed and no additional complaints, except as documented and Reports Abnormal speech present [facility] Past Medical History Surgical History H/O thumb surgery Social History Social History Alcohol intake: current Alcohol intake frequency: holidays/special occasions only Smoked in Last 30 Days: Yes Use of substances other than those prescribed or required for medical reasons: No Advance Directives: No Advance Directives Information Provided: No Physical Exam Vital Signs: Vital Signs: Last Vital Signs Temp 98.2 F 01/14/23 01:13 Pulse 93 01/14/23 01:13 Resp 18 01/14/23 01:13 BP 125/83 01/14/23 01:13 Pulse Ox 96 01/14/23 01:13 O2 Del Method Room Air 01/14/23 01:13 BMI result Body Mass Index 34.5 Vital signs have been reviewed as appeared to be correct. Blood pressure normal. Heart rate normal. Respiration rate normal. Temperature normal. Oxygen saturation normal. Appearance: Alert. Oriented X3. No acute distress. Head: Normal external exam. Normocephalic. Atraumatic. No Gomez signs noted. No raccoon eyes noted Eyes: PERRLA. EOMI. Conjunctiva and sclera normal. Eyelids normal. ENT: TM's Normal. Pharynx normal. Uvula midline. Moist mucous membranes. No trismus noted. No drooling noted. No muffled voice noted. Neck: Normal inspection. Neck supple. FROM. No adenopathy. Thyroid Normal. No meningeal signs. No neck mass noted. CVS: Normal heart rate and rhythm. Heart sound normal. No murmurs noted. Pulses normal throughout. Respiratory: No respiratory distress. Painless inspiration. Breath sounds normal. Bilateral fine basal rales. Chest nontender. No accessory muscle usage noted or decreased air movement noted. Abdomen: Soft and nontender. Bowel sounds normal in all 4 quadrants. No distention noted. No organomegaly noted. No visible injury noted. Back: No CVA tenderness. Full range of motion noted. Skin: Skin warm and dry. Normal skin color. Normal skin turgor. No rashes/lesions/lacerations noted. Extremities: No lower extremity edema. Extremities exhibit normal range of motion. Extremities nontender. Neuro: Oriented X 3. Cranial nerve exam: II-XII are grossly intact No motor deficit. No sensory deficit. Reflexes normal. Course Course Course Narrative: New onset CHF will give 1 dose of Lasix/aspirin and admitted for further cardiac workup. Medical Decision Making Differential Diagnosis Differential Diagnoses: The differential diagnosis associated with the presentation includes (CHF, pneumonia, pneumothorax, electrolytes abnormalities, severe anemia.) Admission/Observation Consideration of admission/observation: Escalation of care including admission/observation considered Consult Healthcare Provider Management of the patient was discussed with: Hospitalist (Dr. Chacko.) Lab Data MDM Lab Attestation statement: I reviewed the patient's lab results. 01/13/23 21:59 01/13/23 21:59 Labs: Lab Results 01/13/23 01/13/23 01/13/23 Range/Units 21:59 21:59 21:59 WBC 9.3 (4.8-10.8) X10*3/uL RBC 4.25 L (4.60-5.80) X10*6/uL Hgb 13.4 L (14.0-18.0) g/dl Hct 41.0 L (42.0-52.0) % MCV 96.5 (80.0-98.0) fL MCH 31.5 (27.0-33.0) pg MCHC 32.7 (31.0-36.0) g/dl RDW 14.5 (11.0-16.0) % Plt Count 226 (160-400) X10*3/uL MPV 9.9 (9.4-12.4) fL Immature Gran % (Auto) 0.2 (0.0-0.4) % Neut % (Auto) 65.7 (45-73) % Lymph % (Auto) 27.4 (20-40) % [place] % (Auto) 5.8 (2-11) % Eos % (Auto) 0.6 (0-4) % Baso % (Auto) 0.3 (0-2) % Lymph # (Auto) 2.6 (1.2-4.9) X10*3/uL [place] # (Auto) 0.5 (0.1-1.2) X10*3/uL Eos # (Auto) 0.1 (0.0-0.4) X10*3/uL Baso # (Auto) 0.0 (0.0-0.2) X10*3/uL Abs Immat Gran (auto) 0.02 (0.00-0.03) X10*3/uL Absolute Neuts (auto) 6.1 (2.0-8.3) x10*3/uL Absolute Nucleated RBC 0.000 (0.0-0.012) X10*3/uL Nucleated RBC % (auto) 0.0 (0.0-0.2) /100WBC Sodium 141 (135-145) mmol/L Potassium 4.4 (3.3-5.1) mmol/L Chloride 110 H (96-108) mmol/L Carbon Dioxide 23 (22-29) mmol/L Anion Gap 12 (12-20) BUN 13 (9-16) mg/dL Creatinine 0.99 (0.5-1.4) mg/dL Estim Creat Clear Calc 128.7 Estimated GFR > 60 Random Glucose 113 (60-115) mg/dL Calcium 9.0 (8.4-10.2) mg/dL Total Bilirubin 0.3 (0.0-1.0) mg/dL AST 29 (5-37) U/L ALT 35 (0-40) U/L Alkaline Phosphatase 72 (39-117) U/L Troponin I High Sens 15.0 (<3.5-35.0) ng/L B-Natriuretic Peptide (<100) pg/mL Total Protein 6.7 (6.5-8.0) g/dL Albumin 3.9 (3.5-5.0) g/dL 01/13/23 Range/Units 21:59 WBC (4.8-10.8) X10*3/uL RBC (4.60-5.80) X10*6/uL Hgb (14.0-18.0) g/dl Hct (42.0-52.0) % MCV (80.0-98.0) fL MCH (27.0-33.0) pg MCHC (31.0-36.0) g/dl RDW (11.0-16.0) % Plt Count (160-400) X10*3/uL MPV (9.4-12.4) fL Immature Gran % (Auto) (0.0-0.4) % Neut % (Auto) (45-73) % Lymph % (Auto) (20-40) % [place] % (Auto) (2-11) % Eos % (Auto) (0-4) % Baso % (Auto) (0-2) % Lymph # (Auto) (1.2-4.9) X10*3/uL [place] # (Auto) (0.1-1.2) X10*3/uL Eos # (Auto) (0.0-0.4) X10*3/uL Baso # (Auto) (0.0-0.2) X10*3/uL Abs Immat Gran (auto) (0.00-0.03) X10*3/uL Absolute Neuts (auto) (2.0-8.3) x10*3/uL Absolute Nucleated RBC (0.0-0.012) X10*3/uL Nucleated RBC % (auto) (0.0-0.2) /100WBC Sodium (135-145) mmol/L Potassium (3.3-5.1) mmol/L Chloride (96-108) mmol/L Carbon Dioxide (22-29) mmol/L Anion Gap (12-20) BUN (9-16) mg/dL Creatinine (0.5-1.4) mg/dL Estim Creat Clear Calc Estimated GFR Random Glucose (60-115) mg/dL Calcium (8.4-10.2) mg/dL Total Bilirubin (0.0-1.0) mg/dL AST (5-37) U/L ALT (0-40) U/L Alkaline Phosphatase (39-117) U/L Troponin I High Sens (<3.5-35.0) ng/L B-Natriuretic Peptide 540 H (<100) pg/mL Total Protein (6.5-8.0) g/dL Albumin (3.5-5.0) g/dL Independent Interpretation I performed an independent interpretation of an: Plain X-Ray (chest: Bilateral pulmonary edema) Radiology Impression Discussion of test interpretation with radiology: I have reviewed the radiologist's reading. Chronic Conditions Patient?s care impacted by: Other (Cigarette smoking) Discharge Plan Discharge Clinical Impression: Congestive heart failure Patient Disposition: Admitted As Inpatient Prescriptions: No Action doxycycline hyclate 100 mg tablet 100 mg PO BID 7 Days Qty: 14 0RF amoxicillin-pot clavulanate [Augmentin] 875-125 mg tablet 1 tab PO Q12H 7 Days Qty: 14 0RF ibuprofen 800 mg tablet 800 mg PO Q8H PRN (Reason: pain) Qty: 30 0RF sulfamethoxazole-trimethoprim [Bactrim DS] 800-160 mg tablet 1 tab PO Q12H 7 Days Qty: 14 0RF cephalexin [Keflex] 500 mg capsule 500 mg PO Q8H 10 Days Qty: 30 0RF cephalexin 500 mg capsule 500 mg PO QID Qty: 28 0RF doxycycline hyclate 100 mg capsule 100 mg PO BID 7 Days Qty: 14 0RF oxycodone-acetaminophen [Percocet] 5-325 mg tablet 1 tab PO TID PRN (Reason: pain) Qty: 9 0RF
[2023-01-14] MEDS: Aspirin 81 MG TAB.CHEW PO (01:50)
[2023-01-14] MEDS: Furosemide 40 MG/4 ML VIAL IVPUSH ×2 (01:50→20:40)
[2023-01-14 02:20] VITALS: BP 112/85; PULSE 95; RESP 17; TEMP 36.8; O2SAT 95
[2023-01-14 05:27] LABS: Alanine Aminotransferase 34 U/L (0-40); Alkaline Phosphatase 76 U/L (39-117); Anion Gap 14 (12-20); Aspartate Amino Transferase 25 U/L (5-37); Bilirubin Total 0.8 mg/dL (0.0-1.0); Blood Urea Nitrogen 14 mg/dL (9-16); Calcium 9.2 mg/dL (8.4-10.2); Carbon Dioxide 27 mmol/L (22-29); Chloride 107 mmol/L (96-108); Estimated Glomerular Filt Rate > 60; Glucose Random 132 mg/dL (60-115); Potassium 4.1 mmol/L (3.3-5.1); Sodium 144 mmol/L (135-145); Total Protein 6.9 g/dL (6.5-8.0)
--- NOTE | 2023-01-14 05:59 | P.HPHOSP_ITS ---
History of Present Illness Date of Service: 01/14/23 Chief Complaint: Shortness of breath 42-year-old male who denies any past medical history presents the hospital with complaints of shortness of breath. Symptoms going on for 1 week. Has orthopnea, PND, lower extremity edema. Patient reports no history of CHF, denies any chest pain, no palpitations, no headache or change in vision, reports no cough, no sputum production, no abdominal pain nausea or vomiting, no diarrhea constipation, no urinary symptoms. On arrival to the ED patient hemodynamically stable no significant abnormal vitals Labs are significant for WBC count of 9.3, hemoglobin of 13.4, hematocrit of 41, BNP of 540, and troponin of 15 Chest x-ray shows bronchial wall thickening which can be seen in small airway process such as asthma or atypical infection, no consolidation Patient is being admitted for further management Review of Systems Review of Systems: Yes all other systems are reviewed and are negative [facility] Medical History (Updated 01/14/23 @ 06:01 by Mildred Chacko MD) No pertinent past medical history Family History (Updated 01/14/23 @ 06:01 by Mildred Chacko MD) Mother CHF (congestive heart failure) CAD (coronary artery disease) Pertinent family history: Mother had coronary artery disease/heart attack at the age of 57 and she also has CHF Surgical History H/O thumb surgery Social History Alcohol intake: current Alcohol intake frequency: holidays/special occasions only Patient Tobacco Use Status: Current everyday Tobacco user Smoked in Last 30 Days: Yes Use of substances other than those prescribed or required for medical reasons: No Advance Directives: No Advance Directives Information Provided: No Nutrition Risks: No Nutritional Risk Meds Allergies Allergy/AdvReac Type Severity Reaction Status Date / Time No Known Allergies Allergy Verified 01/13/23 21:43 [No Known Allergies*] Active Medications: Current Medications Acetaminophen (Acetaminophen 325 Mg Tablet) 650 mg PO Q6H PRN PRN Reason: Pain, Mild (Pain Scale 1-3) Docusate Sodium (Docusate Sodium 100 Mg Capsule) 100 mg PO DAILY PRN PRN Reason: Constipation Enoxaparin Sodium (Enoxaparin Sodium 40 Mg/0.4 Ml Syringe) 40 mg SUBCUT Q24H MICK Last Admin: 01/14/23 02:30 Dose: Not Given Furosemide (Furosemide 40 Mg Tablet) 40 mg PO DAILY MICK; Protocol Ondansetron HCl (Ondansetron Hcl 4 Mg/2 Ml Vial) 4 mg IVPUSH Q8H PRN PRN Reason: Nausea and Vomiting Sodium Chloride (0.9 % Sodium Chloride Flush 3 Ml Syringe) 3 ml IVFLUSH QSHIFT [facility] Physical Exam Vital Signs and Narrative: Vital Signs: Last Vital Signs Temp 98.2 F 01/14/23 02:20 Pulse 95 01/14/23 02:20 Resp 17 01/14/23 02:20 BP 112/85 01/14/23 02:20 Pulse Ox 95 01/14/23 02:20 O2 Del Method Room Air 01/14/23 02:20 BMI result Body Mass Index 34.5 Const: General: cooperative and no acute distress Orientation/consciousness: patient oriented x3 Eyes: General: appearance normal, both eyes and all related structures Resp: Other: Crackles bilaterally Effort & Inspection: normal respiratory effort Cardio: Rate: regular rate Rhythm: regular rhythm GI: Palpation (GI): Soft to palpation Auscultation: normal bowel sounds Skin: General skin exam: no rashes or lesions noted Neuro: General: patient oriented x3 Cognition (Neuro): normal cognition Extrem: Other: 3+ pitting edema reaching just below the knee Results Labs 01/13/23 21:59 01/14/23 04:52 Labs: Laboratory Results - last 24 hr 01/13/23 01/13/23 01/13/23 21:59 21:59 21:59 MCV 96.5 MCH 31.5 MCHC 32.7 RDW 14.5 Plt Count 226 MPV 9.9 Immature Gran % (Auto) 0.2 Neut % (Auto) 65.7 Lymph % (Auto) 27.4 [place] % (Auto) 5.8 Eos % (Auto) 0.6 Baso % (Auto) 0.3 Lymph # (Auto) 2.6 [place] # (Auto) 0.5 Eos # (Auto) 0.1 Baso # (Auto) 0.0 Abs Immat Gran (auto) 0.02 Absolute Neuts (auto) 6.1 Absolute Nucleated RBC 0.000 Nucleated RBC % (auto) 0.0 Anion Gap 12 Estim Creat Clear Calc 128.7 Estimated GFR > 60 Random Glucose 113 Calcium 9.0 Total Bilirubin 0.3 AST 29 ALT 35 Alkaline Phosphatase 72 Troponin I High Sens 15.0 B-Natriuretic Peptide Total Protein 6.7 Albumin 3.9 01/13/23 01/14/23 21:59 04:52 MCV MCH MCHC RDW Plt Count MPV Immature Gran % (Auto) Neut % (Auto) Lymph % (Auto) [place] % (Auto) Eos % (Auto) Baso % (Auto) Lymph # (Auto) [place] # (Auto) Eos # (Auto) Baso # (Auto) Abs Immat Gran (auto) Absolute Neuts (auto) Absolute Nucleated RBC Nucleated RBC % (auto) Anion Gap 14 Estim Creat Clear Calc 119.0 Estimated GFR > 60 Random Glucose 132 H Calcium 9.2 Total Bilirubin 0.8 AST 25 ALT 34 Alkaline Phosphatase 76 Troponin I High Sens B-Natriuretic Peptide 540 H Total Protein 6.9 Albumin 4.0 Imaging Radiologist's Impressions: Impressions Chest X-Ray 01/13/23 06:38 IMPRESSION: Bronchial wall thickening can be seen with a small airways process such as asthma or atypical/viral infection. No focal consolidation. Assessment and Plan (1) Acute exacerbation of CHF (congestive heart failure): Status: Acute (2) New onset of congestive heart failure: Status: Acute Plan 42-year-old male with history of tobacco use smokes about 3-4 cigarettes daily, with no other mentioned past medical history presents the hospital with shortness of breath found to be new onset CHF # acute CHF exacerbation/new onset - no risk factors that he is aware of, patient does not visit doctor very often, but denies having ever had history of diabetes, hypertension, - does smoke 3-4 cigarettes daily - has family history of CAD of his mama the age of 57 - has elevated BNP, orthopnea, PND, as well as lower extremity edema - at this time will treat with IV Lasix - duct I&O, daily weight, low-sodium diet - cardiology consulted - echocardiogram - troponin negative x1 DVT prophylaxis: Lovenox Given patient's need for further evaluation of CHF patient will require minimum 2 nights inpatient hospital stay for further management and monitoring Time Spent With Patient Time: Total time managing care of this patient today ____ minutes. Quality Stroke Does the patient have a stroke diagnosis?: No VTE Prior VTE?: No VTE Risk Level:: Medical - moderate - high VTE Device Contraindication: Treatment Not Indicated VTE Drug Contraindication: N/A - Med Ordered
--- NOTE | 2023-01-14 07:00 | CA_ITS ---
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 There is normal left ventricular wall thickness. The left ventricular systolic function is severely decreased. The visually estimated ejection fraction is between 15-20%. - E/E prime ratio is >15, consistent with elevated filling pressures. - Normal right ventricular cavity size. There is borderline right ventricular systolic function. - The left atrium is severely dilated. - The right ventricular systolic pressure is 45 mmHg. Significantly elevated right atrial pressure. Mild to moderate pulmonary hypertension is present. - The inferior vena cava is dilated and collapses less than 50% with inspiration. Findings Procedure Information Contrast agent, definity, is being given per protocol without apparent complications. Left Ventricle Severely increased left ventricular cavity size. There is normal left ventricular wall thickness. The left ventricular systolic function is severely decreased. The visually estimated ejection fraction is between 15 20%. There is severe global hypokinesis. Abnormal diastolic function is noted. Spectral Doppler is indicative of a pseudonormal filling pattern. E/E prime ratio is >15, consistent with elevated filling pressures. Right Ventricle Normal right ventricular cavity size. There is borderline right ventricular systolic function. Atria The left atrium is severely dilated. Aortic Valve Normal aortic valve structure and function. There is no aortic valve stenosis. There is no aortic valve regurgitation. Mitral Valve The mitral valve appears normal. There is trace mitral valve regurgitation. There is no mitral valve stenosis. Pulmonic Valve The pulmonic valve is likely normal. Tricuspid Valve Normal tricuspid valve structure and function. There is trace tricuspid valve regurgitation. The right ventricular systolic pressure is 45 mmHg. Significantly elevated right atrial pressure. Mild to moderate pulmonary hypertension is present. Great Vessels All visible segments of the aorta are normal in size. The visualized portions of the pulmonary artery and branches are normal. Venous The inferior vena cava is dilated and collapses less than 50% with inspiration. Pericardium/Pleural There is no evidence of pericardial effusion. Measurements 2D Linear Measurements IVSd: 1.07 0.6-0.9/0.6-1.0 cm LVIDd: 7.26 3.9-5.3/4.2-5.9 cm LVIDd Index: 3.08 2.4-3.2/2.2-3.1 cm/m2 LVIDs: 6.74 2.0-3.6 cm LVPWd: 1.04 0.7-1.1 cm Ao Root: 2.90 2.1-3.5 cm LA Diam: 4.60 2.7-3.8/3.0-4.0 cm LAIDs Index: 1.95 1.5-2.3 cm/m2 LV Mass: 457.60 67-162/88-224 g LV Mass Index: 193.90 43-95/49-115 g/m2 LVOT Diam: 2.40 3.0+(-)1.3 cm Mitral Valve MV Pk E: 0.82 MV PK A: 0.43 MV Decel Time: 115.00 E/A: 1.90 E'Lateral: 3.05 E'Medial: 3.26 E/E' Med: 25.20 E/E' Lat: 27.00 PHT: 34.00 MVA PHT: 6.47 Decel Wilkinson: 7.17 Aortic Valve AoV Pk Keith: 0.73 AoV Mn Keith: 0.50 AoV VTI: 0.13 AoV Pk Grad: 2.00 Aov Mn Grad: 1.00 RADHA Cont.VTI: 2.08 LVOT LVOT Pk Keith: 0.39 LVOT Mn Keith: 0.24 LVOT VTI: 0.06 LVOT Pk Grad: 1.00 LVOT Mn Grad: 0.00 LVOT Diam: 2.40 LVOT Area: 4.52 Diastolic Function MV Pk E: 0.82 MV Pk A: 0.43 E/A: 1.90 E'Medial: 3.26 E/E' Med: 25.20 E' Laterial: 3.05 E/E' Lat: 27.00 Tricuspid Valve TR Pk Keith: 2.42 TR Pk Grad: 23.00 RVSP: 45.00 Great Vessels Aorta Ao Root-2D: 2.90 2.0-3.7 cm Ao Asc: 2.70 2.1-3.4 cm Pulmonary Valve PV Pk Keith: 0.77 Peak PV Grad: 2.00 Updated in Other Vendor System with Status of Final Alireza Bailey MD electronically signed on 01/14/2023 2:32:56 PM with status of Final
[2023-01-14 08:08] LABS: Estimated Average Glucose 111 mg/dL; Hemoglobin A1c % 5.5 %
--- NOTE | 2023-01-14 09:00 | PHA.MEDREC ---
Pharmacy Consult ? Medication Reconciliation Pharmacy has completed the medication reconciliation. spoke with patient. Takes no medications at home. Claim history validates.
[2023-01-14] MEDS: Furosemide 40 MG TABLET PO (09:10)
[2023-01-14] MEDS: 0.9 % Sodium Chloride Flush 3 ML SYRINGE IVFLUSH ×2 (09:11→20:41)
[2023-01-14 09:18] LABS: Troponin-I High Sensitivity 12.4 ng/L (<3.5-35.0)
[2023-01-14 11:03] LABS: Adenovirus PCR Not Detected (Not Detect.); Bordetella parapertussis PCR Not Detected (Not Detect.); Bordetella pertussis PCR Not Detected (Not Detect.); Chlamydia pneumoniae PCR Not Detected (Not Detect.); Coronavirus 229E PCR Not Detected (Not Detect.); Coronavirus HKU1 PCR Not Detected (Not Detect.); Coronavirus NL63 PCR Not Detected (Not Detect.); Coronavirus OC43 PCR Not Detected (Not Detect.); Human metapneumovirus PCR Not Detected (Not Detect.); Influenza A PCR Not Detected (Not Detect.); Influenza B PCR Not Detected (Not Detect.); SARS-CoV-2 PCR Not Detected (Not Detect.)
[2023-01-14 11:04] LABS: Mycoplasma pneumoniae PCR Not Detected (Not Detect.); Parainfluenza 1 PCR Not Detected (Not Detect.); Parainfluenza 2 PCR Not Detected (Not Detect.); Parainfluenza 3 PCR Not Detected (Not Detect.); Parainfluenza 4 PCR Not Detected (Not Detect.); RSV PCR Not Detected (Not Detect.); Rhino/Enterovirus PCR Not Detected (Not Detect.)
[2023-01-14 11:38] LABS: B Type Natriuretic Peptide 580 pg/mL (<100)
--- NOTE | 2023-01-14 12:42 | P.CONCA_ITS ---
History of Present Illness History of Present Illness Date of Service: 01/14/23 Requesting physician: Abe Chan Chief complaint: Acute CHF Narrative: Pleasant 42 year gentleman who is presenting with lower extremity edema and shortness of breath. He has been experiencing PND. These symptoms go back 3 weeks. He has no previous history. He drinks alcohol 4 days a week. With these symptoms presenting to emergency department and was noticed to be in acute congestive heart failure. He has been on IV diuretics since then. He is improving. He still has peripheral edema. No chest discomfort. Mother has coronary disease diagnosed in 50s. No drug abuse history. Not using any prescription or [id number] medications. No history of recent viral illness. [facility] Past Medical History Medical History (Updated 01/14/23 @ 06:01 by Mildred Chacko MD) No pertinent past medical history Family History Family History (Updated 01/14/23 @ 06:01 by Mildred Chacko MD) Mother CHF (congestive heart failure) CAD (coronary artery disease) Surgical History Surgical History H/O thumb surgery Social History Social History Alcohol intake: current Alcohol intake frequency: holidays/special occasions only Patient Tobacco Use Status: Current everyday Tobacco user Smoked in Last 30 Days: Yes Use of substances other than those prescribed or required for medical reasons: No Advance Directives: No Advance Directives Information Provided: No Nutrition Risks: No Nutritional Risk Meds Allergies Allergy/AdvReac Type Severity Reaction Status Date / Time No Known Allergies Allergy Verified 01/13/23 21:43 [No Known Allergies*] Active Medications: Current Medications Acetaminophen (Acetaminophen 325 Mg Tablet) 650 mg PO Q6H PRN PRN Reason: Pain, Mild (Pain Scale 1-3) Docusate Sodium (Docusate Sodium 100 Mg Capsule) 100 mg PO DAILY PRN PRN Reason: Constipation Enoxaparin Sodium (Enoxaparin Sodium 40 Mg/0.4 Ml Syringe) 40 mg SUBCUT Q24H [facility] Last Admin: 01/14/23 02:30 Dose: Not Given Furosemide (Furosemide 40 Mg Tablet) 40 mg PO DAILY [facility]; Protocol Last Admin: 01/14/23 09:10 Dose: 40 mg Ondansetron HCl (Ondansetron Hcl 4 Mg/2 Ml Vial) 4 mg IVPUSH Q8H PRN PRN Reason: Nausea and Vomiting Sodium Chloride (0.9 % Sodium Chloride Flush 3 Ml Syringe) 3 ml IVFLUSH QSHIFT [facility] Last Admin: 01/14/23 09:11 Dose: 3 ml Home Medications Medication Instructions Recorded Confirmed Last Taken Type No Known Home Meds 01/14/23 01/14/23 Unknown History Physical Exam Vital Signs: Vital Signs: Last Vital Signs Temp 98.2 F 01/14/23 02:20 Pulse 95 01/14/23 02:20 Resp 17 01/14/23 02:20 BP 112/85 01/14/23 02:20 Pulse Ox 95 01/14/23 02:20 O2 Del Method Room Air 01/14/23 02:20 BMI result Body Mass Index 34.5 GENERAL APPEARANCE: in no acute distress, pleasant. NECK: no carotid bruit, + jugular venous distention. SKIN: no suspicious lesions, warm and dry. HEART: no murmurs, regular rate and rhythm. LUNGS: clear to auscultation bilaterally. ABDOMEN: soft, nontender. EXTREMITIES: + edema. PERIPHERAL PULSES: equal. NEUROLOGIC: No gross deficits, AAO X 3 Objective Labs and Meds 01/13/23 21:59 01/14/23 04:52 Lab results: Laboratory Results - last 24 hr 01/13/23 01/13/23 01/13/23 21:59 21:59 21:59 WBC 9.3 RBC 4.25 L Hgb 13.4 L Hct 41.0 L MCV 96.5 MCH 31.5 MCHC 32.7 RDW 14.5 Plt Count 226 MPV 9.9 Immature Gran % (Auto) 0.2 Neut % (Auto) 65.7 Lymph % (Auto) 27.4 [place] % (Auto) 5.8 Eos % (Auto) 0.6 Baso % (Auto) 0.3 Lymph # (Auto) 2.6 [place] # (Auto) 0.5 Eos # (Auto) 0.1 Baso # (Auto) 0.0 Abs Immat Gran (auto) 0.02 Absolute Neuts (auto) 6.1 Absolute Nucleated RBC 0.000 Nucleated RBC % (auto) 0.0 Sodium 141 Potassium 4.4 Chloride 110 H Carbon Dioxide 23 Anion Gap 12 BUN 13 Creatinine 0.99 Estim Creat Clear Calc 128.7 Estimated GFR > 60 Random Glucose 113 Estimat Average Glucose Hemoglobin A1c % Calcium 9.0 Total Bilirubin 0.3 AST 29 ALT 35 Alkaline Phosphatase 72 Troponin I High Sens 15.0 B-Natriuretic Peptide Total Protein 6.7 Albumin 3.9 Respiratory Panel [place] Adenovirus (Rapid PCR) B.pert (TEM-PCR) B.parapertussis DNA PCR C. pneumoniae DNA (PCR) Coronavirus OC43 (PCR) Coronavirus HKU1 (PCR) Coronavirus 229E (PCR) Coronavirus NL63 (PCR) Human Metapneumovir PCR Influenza A (RT-PCR) Influenza B (RT-PCR) M. pneumoniae (PCR) Parainfluenza 1 (PCR) Parainfluenza 2 (PCR) Parainfluenza 3 (PCR) Parainfluenza 4 (PCR) RSV (PCR) Entero/Rhino (PCR) SARS-CoV-2 RNA (RT-PCR) 01/13/23 01/14/23 01/14/23 21:59 04:52 04:52 WBC RBC Hgb Hct MCV MCH MCHC RDW Plt Count MPV Immature Gran % (Auto) Neut % (Auto) Lymph % (Auto) [place] % (Auto) Eos % (Auto) Baso % (Auto) Lymph # (Auto) [place] # (Auto) Eos # (Auto) Baso # (Auto) Abs Immat Gran (auto) Absolute Neuts (auto) Absolute Nucleated RBC Nucleated RBC % (auto) Sodium 144 Potassium 4.1 Chloride 107 Carbon Dioxide 27 Anion Gap 14 BUN 14 Creatinine 1.07 Estim Creat Clear Calc 119.0 Estimated GFR > 60 Random Glucose 132 H Estimat Average Glucose 111 Hemoglobin A1c % 5.5 Calcium 9.2 Total Bilirubin 0.8 AST 25 ALT 34 Alkaline Phosphatase 76 Troponin I High Sens B-Natriuretic Peptide 540 H Total Protein 6.9 Albumin 4.0 Respiratory Panel [place] Adenovirus (Rapid PCR) B.pert (TEM-PCR) B.parapertussis DNA PCR C. pneumoniae DNA (PCR) Coronavirus OC43 (PCR) Coronavirus HKU1 (PCR) Coronavirus 229E (PCR) Coronavirus NL63 (PCR) Human Metapneumovir PCR Influenza A (RT-PCR) Influenza B (RT-PCR) M. pneumoniae (PCR) Parainfluenza 1 (PCR) Parainfluenza 2 (PCR) Parainfluenza 3 (PCR) Parainfluenza 4 (PCR) RSV (PCR) Entero/Rhino (PCR) SARS-CoV-2 RNA (RT-PCR) 01/14/23 01/14/23 01/14/23 08:21 08:53 08:53 WBC RBC Hgb Hct MCV MCH MCHC RDW Plt Count MPV Immature Gran % (Auto) Neut % (Auto) Lymph % (Auto) [place] % (Auto) Eos % (Auto) Baso % (Auto) Lymph # (Auto) [place] # (Auto) Eos # (Auto) Baso # (Auto) Abs Immat Gran (auto) Absolute Neuts (auto) Absolute Nucleated RBC Nucleated RBC % (auto) Sodium Potassium Chloride Carbon Dioxide Anion Gap BUN Creatinine Estim Creat Clear Calc Estimated GFR Random Glucose Estimat Average Glucose Hemoglobin A1c % Calcium Total Bilirubin AST ALT Alkaline Phosphatase Troponin I High Sens 12.4 B-Natriuretic Peptide 580 H Total Protein Albumin Respiratory Panel [place] See Note Adenovirus (Rapid PCR) Not Detected B.pert (TEM-PCR) Not Detected B.parapertussis DNA PCR Not Detected C. pneumoniae DNA (PCR) Not Detected Coronavirus OC43 (PCR) Not Detected Coronavirus HKU1 (PCR) Not Detected Coronavirus 229E (PCR) Not Detected Coronavirus NL63 (PCR) Not Detected Human Metapneumovir PCR Not Detected Influenza A (RT-PCR) Not Detected Influenza B (RT-PCR) Not Detected M. pneumoniae (PCR) Not Detected Parainfluenza 1 (PCR) Not Detected Parainfluenza 2 (PCR) Not Detected Parainfluenza 3 (PCR) Not Detected Parainfluenza 4 (PCR) Not Detected RSV (PCR) Not Detected Entero/Rhino (PCR) Not Detected SARS-CoV-2 RNA (RT-PCR) Not Detected Imaging Radiologist's impression: Impressions Chest X-Ray 01/13/23 06:38 IMPRESSION: Bronchial wall thickening can be seen with a small airways process such as asthma or atypical/viral infection. No focal consolidation. Assessment and Plan (1) New onset of congestive heart failure: Status: Acute Plan 42-year-old gentleman presenting with new onset congestive heart failure. Clinically volume overloaded. IV Lasix 40 mg daily. Adding losartan 25 mg once a day. Monitor blood pressure and electrolytes closely. Echocardiography to assess the ejection fraction. I suspect that he has cardiomyopathy due to alcohol use. Would avoid beta-irasema for now. We will follow along with you. Thank you for allowing me to participate in the care of your patient. Please feel free to contact me if you have any questions. Time Spent With Patient Time: Total time managing care of this patient today ____ minutes. Procedures Date of Service Date of Service: 01/14/23
--- NOTE | 2023-01-14 12:55 | P.EN_ITS ---
Event Note Date of Service: 01/14/23 Event Note: day attending update S Short of breath and has edema O VS: T 98.2, BP 112/85, P 95, R 17, SaO2 95 on RA Gen: in no acute distress HEENT: sclera anicteric, moist mucus membranes Neck: supple Lungs: clear to auscultation bilaterally Heart: regular rate and rhythm, no murmurs Abd: soft, non-tender, non-distended, obese Ext: 2+ pitting edema bilaterally Skin: warm/well-perfused Neuro: alert and oriented x3, no focal findings Psych: appropriate affect A/P # ADHF unknown EF pending - continue IV diuresis with furosemide [2000 mL negative so far], TTE pending, Cardiology consulted, monitor I+O/BNP/BMP/Mg. 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 hold B-irasema initiation until euvolemic # AUD - vitamins, Addiction Med consult, monitor for withdrawal # VTE ppx: LMWH # dispo: TBD In my clinical judgment, the patient requires continued inpatient ho spitalization for the following reasons: IV diuresis, HF workup Time Spent With Patient Time: Total time managing care of this patient today ____ minutes.
--- NOTE | 2023-01-14 13:53 | PC.NURSE ---
echo at the bedside
[2023-01-14 14:14] VITALS: BP 126/89; PULSE 98; RESP 16; O2SAT 97
--- NOTE | 2023-01-14 14:52 | PC.NURSE ---
nurse to nurse report to [facility] Pearl CRAFT
[2023-01-14 15:30] VITALS: BP 114/88; PULSE 92; RESP 17; TEMP 36.1; O2SAT 96
[2023-01-14] MEDS: Spironolactone 25 MG TABLET PO (16:13)
[2023-01-14] MEDS: Empagliflozin 10 MG TABLET PO (16:28)
--- NOTE | 2023-01-14 18:40 | PC.NURSE ---
Patient arrived to unit from ER ambulates independently with steady gait. Neurologically intact. Denies pain/discomfort. 2+ edema to bilat feet and ankles. LS dim denies SOB or CP, NSR on tele. Per patient breathing much improved from prior. Voiding in urinal without difficulty. Pt provided with education on new medications started on arrival. Will continue to monitor
[2023-01-14 19:23] VITALS: BP 114/83; PULSE 86; RESP 17; TEMP 37.1; O2SAT 99
[2023-01-14] MEDS: Sacubitril/Valsartan 24/26 1 TAB TABLET PO (20:40)
[2023-01-14 23:28] VITALS: BP 132/85; PULSE 95; RESP 18; TEMP 36.9; O2SAT 96
[2023-01-15 03:56] VITALS: BP 107/70; PULSE 86; RESP 20; TEMP 36.6; O2SAT 96
[2023-01-15 06:00] VITALS: BMI 32.9
[2023-01-15 07:23] LABS: B Type Natriuretic Peptide 514 pg/mL (<100)
[2023-01-15 07:36] LABS: Anion Gap 16 (12-20); Blood Urea Nitrogen 12 mg/dL (9-16); Calcium 9.6 mg/dL (8.4-10.2); Carbon Dioxide 24 mmol/L (22-29); Chloride 105 mmol/L (96-108); Creatinine Clr Calc Pharmacy 143.1; Estimated Glomerular Filt Rate > 60; Glucose Random 118 mg/dL (60-115); Magnesium 2.4 mg/dL (1.6-2.6); Potassium 3.9 mmol/L (3.3-5.1); Sodium 141 mmol/L (135-145)
[2023-01-15 07:39] VITALS: BP 106/68; PULSE 91; RESP 18; TEMP 36.7; O2SAT 95
[2023-01-15 07:41] LABS: Cholesterol 177 mg/dL; HDL Cholesterol 38 mg/dL; LDL Cholesterol Calculated 101 mg/dl; Triglycerides 192 mg/dL
[2023-01-15] MEDS: Furosemide 40 MG/4 ML VIAL IVPUSH ×2 (08:41→18:08)
[2023-01-15] MEDS: Multivitamin TABLET 1 TAB PO (08:43)
[2023-01-15] MEDS: Folic Acid 1 MG TABLET PO (08:43)
[2023-01-15] MEDS: Thiamine HCL 100 MG TABLET PO (08:43)
[2023-01-15] MEDS: Spironolactone 25 MG TABLET PO (08:43)
[2023-01-15] MEDS: Sacubitril/Valsartan 24/26 1 TAB TABLET PO ×2 (08:43→21:25)
[2023-01-15] MEDS: Empagliflozin 10 MG TABLET PO (08:43)
[2023-01-15] MEDS: 0.9 % Sodium Chloride Flush 3 ML SYRINGE IVFLUSH ×3 (08:45→21:29)
--- NOTE | 2023-01-15 09:46 | MHC.CM.PN ---
Pt admitted with acute CHF. Pt lives at home, is independent/self-care, no services/DME. Pt has his own transport. D/C plan to return home self-care when medically cleared. HCP done per pt, copy requested. Pt states he has a new PCP through [facility], but doesn't know the name, and has an appointment set in April. Concha gillespiex: x 2 pfizer
--- NOTE | 2023-01-15 10:55 | P.PNIM_ITS ---
Subjective Subjective Date of Service: 01/15/23 Interval History: less short of breath legs still swollen no chest pain no EtOH withdrawal symptoms Review of Systems Review of Systems: Yes all other systems are reviewed and are negative Physical Exam Vital Signs: Vital Signs: Last Vital Signs Temp 98.1 F 01/15/23 07:39 Pulse 91 01/15/23 07:39 Resp 18 01/15/23 07:39 BP 106/68 01/15/23 07:39 Pulse Ox 95 01/15/23 07:39 O2 Del Method Room Air 01/15/23 07:39 BMI result Body Mass Index 32.9 Gen: in no acute distress HEENT: sclera anicteric, moist mucus membranes Neck: supple Lungs: clear to auscultation bilaterally Heart: regular rate and rhythm, no murmurs, JVD present Abd: soft, non-tender, non-distended Ext: 2+ bilateral leg edema Skin: warm/well-perfused Neuro: alert and oriented x3, no focal findings Psych: appropriate affect Objective Data Active Medications Acetaminophen (Acetaminophen 325 Mg Tablet) 650 mg PO Q6H PRN PRN Reason: Pain, Mild (Pain Scale 1-3) Docusate Sodium (Docusate Sodium 100 Mg Capsule) 100 mg PO DAILY PRN PRN Reason: Constipation Empagliflozin (Empagliflozin 10 Mg Tablet) 10 mg PO DAILY [facility] Last Admin: 01/15/23 08:43 Dose: 10 mg Documented By: BONNY Enoxaparin Sodium (Enoxaparin Sodium 40 Mg/0.4 Ml Syringe) 40 mg SUBCUT Q24H [facility] Last Admin: 01/15/23 01:52 Dose: Not Given Documented By: AZRA Non-Admin Reason: Patient Refused Folic Acid (Folic Acid 1 Mg Tablet) 1 mg PO DAILY [facility] Last Admin: 01/15/23 08:43 Dose: 1 mg Documented By: BONNY Furosemide (Furosemide 40 Mg/4 Ml Vial) 40 mg IVPUSH BID@0900,1800 [facility]; Protocol Last Admin: 01/15/23 08:41 Dose: 40 mg Documented By: BONNY Multivitamins/Vitamin C (Multivitamin Tablet) 1 tab PO DAILY [facility] Last Admin: 01/15/23 08:43 Dose: 1 tab Documented By: BONNY Ondansetron HCl (Ondansetron Hcl 4 Mg/2 Ml Vial) 4 mg IVPUSH Q8H PRN PRN Reason: Nausea and Vomiting Sacubitril/Valsartan (Sacubitril/Valsartan 1 Tab Tablet) 1 tab PO BID [facility]; Protocol Last Admin: 01/15/23 08:43 Dose: 1 tab Documented By: BONNY Sodium Chloride (0.9 % Sodium Chloride Flush 3 Ml Syringe) 3 ml IVFLUSH QSHIFT [facility] Last Admin: 01/15/23 08:45 Dose: 3 ml Documented By: BONNY Spironolactone (Spironolactone 25 Mg Tablet) 25 mg PO DAILY [facility]; Protocol Last Admin: 01/15/23 08:43 Dose: 25 mg Documented By: BONNY Thiamine HCl (Thiamine Hcl 100 Mg Tablet) 100 mg PO DAILY [facility] Last Admin: 01/15/23 08:43 Dose: 100 mg Documented By: BONNY Labs 01/13/23 21:59 01/15/23 06:26 Labs: Laboratory Results - last 24 hr 01/14/23 01/14/23 01/15/23 08:21 08:53 06:26 Anion Gap Estim Creat Clear Calc Estimated GFR Random Glucose Calcium Magnesium B-Natriuretic Peptide 580 H Triglycerides 192 Cholesterol 177 LDL Cholesterol, Calc 101 HDL Cholesterol 38 Respiratory Panel [place] See Note Adenovirus (Rapid PCR) Not Detected B.pert (TEM-PCR) Not Detected B.parapertussis DNA PCR Not Detected C. pneumoniae DNA (PCR) Not Detected Coronavirus OC43 (PCR) Not Detected Coronavirus HKU1 (PCR) Not Detected Coronavirus 229E (PCR) Not Detected Coronavirus NL63 (PCR) Not Detected Human Metapneumovir PCR Not Detected Influenza A (RT-PCR) Not Detected Influenza B (RT-PCR) Not Detected M. pneumoniae (PCR) Not Detected Parainfluenza 1 (PCR) Not Detected Parainfluenza 2 (PCR) Not Detected Parainfluenza 3 (PCR) Not Detected Parainfluenza 4 (PCR) Not Detected RSV (PCR) Not Detected Entero/Rhino (PCR) Not Detected SARS-CoV-2 RNA (RT-PCR) Not Detected 01/15/23 01/15/23 06:26 06:26 Anion Gap 16 Estim Creat Clear Calc 143.1 Estimated GFR > 60 Random Glucose 118 H Calcium 9.6 Magnesium 2.4 B-Natriuretic Peptide 514 H Triglycerides Cholesterol LDL Cholesterol, Calc HDL Cholesterol Respiratory Panel [place] Adenovirus (Rapid PCR) B.pert (TEM-PCR) B.parapertussis DNA PCR C. pneumoniae DNA (PCR) Coronavirus OC43 (PCR) Coronavirus HKU1 (PCR) Coronavirus 229E (PCR) Coronavirus NL63 (PCR) Human Metapneumovir PCR Influenza A (RT-PCR) Influenza B (RT-PCR) M. pneumoniae (PCR) Parainfluenza 1 (PCR) Parainfluenza 2 (PCR) Parainfluenza 3 (PCR) Parainfluenza 4 (PCR) RSV (PCR) Entero/Rhino (PCR) SARS-CoV-2 RNA (RT-PCR) TTE 01/14/23 - Severely increased left ventricular cavity size.? There is ? ? normal left ventricular wall thickness.? The left ventricular? ? systolic function is severely decreased.? The visually estimated ejection fraction is between 15-20%. ? - E/E prime ratio is >15, consistent with elevated filling ? ? ? pressures. ? - Normal right ventricular cavity size.? There is borderline ? ? right ventricular systolic function. ? - The left atrium is severely dilated. ? - The right ventricular systolic pressure is 45 mmHg.? Significantly elevated right atrial pressure.? Mild to moderate? pulmonary hypertension is present. ? - The inferior vena cava is dilated and collapses less than 50%? with inspiration.? Assessment and Plan (1) New onset of congestive heart failure: Status: Acute (2) Acute exacerbation of CHF (congestive heart failure): Status: Acute Plan d#2 42yo M with heavy EtOH abuse presenting with ADHF # acute HFrEF [15-20%] - likely dilated CM due to EtOH - still overloaded, continue furosemide diuresis [3920 mL negative so far], monitor I+O/BNP/BMP/Mg, Cardiology following - started on Entresto + empagliflozin + spironolactone for NH modulation; hold off on B-irasema until euvolemic # AUD - vitamins, Addiction Med consult, monitor for withdrawal # VTE ppx: LMWH # dispo: anticipate home in next few days In my clinical judgment, the patient requires continued inpatient hospitalization for the following reasons: IV diuresis Time Spent With Patient Time: Total time managing care of this patient today __45_ minutes. Quality Stroke Does the patient have a stroke diagnosis?: No VTE Prior VTE?: No VTE Risk Level:: Medical - moderate - high VTE Device Contraindication: Treatment Not Indicated VTE Drug Contraindication: N/A - Med Ordered
[2023-01-15 11:52] VITALS: BP 99/68; PULSE 95; RESP 20; TEMP 36.6; O2SAT 97
--- NOTE | 2023-01-15 12:36 | PM.PNCARD ---
Subjective Subjective Date of Service: 01/15/23 Interval history: Seen and examined at bedside. Echocardiography results discussed with the patient. Doing much better. Still has some peripheral edema. Physical Exam Vital Signs: Last Vital Signs Temp 97.8 F 01/15/23 11:52 Pulse 95 01/15/23 11:52 Resp 20 01/15/23 11:52 BP 99/68 01/15/23 11:52 Pulse Ox 97 01/15/23 11:52 O2 Del Method Room Air 01/15/23 11:52 BMI result Body Mass Index 32.9 GENERAL APPEARANCE: in no acute distress, pleasant. NECK: no carotid bruit, no jugular venous distention. SKIN: no suspicious lesions, warm and dry. HEART: no murmurs, regular rate and rhythm. LUNGS: clear to auscultation bilaterally. ABDOMEN: soft, nontender. EXTREMITIES: + 1 edema. PERIPHERAL PULSES: equal. NEUROLOGIC: No gross deficits, AAO X 3 Objective Labs and Meds 01/13/23 21:59 01/15/23 06:26 Lab results: Laboratory Results - last 24 hr 01/15/23 01/15/23 01/15/23 06:26 06:26 06:26 Sodium 141 Potassium 3.9 Chloride 105 Carbon Dioxide 24 Anion Gap 16 BUN 12 Creatinine 0.87 Estim Creat Clear Calc 143.1 Estimated GFR > 60 Random Glucose 118 H Calcium 9.6 Magnesium 2.4 B-Natriuretic Peptide 514 H Triglycerides 192 Cholesterol 177 LDL Cholesterol, Calc 101 HDL Cholesterol 38 Progress Note: A&P Assessment and plan (1) New onset of congestive heart failure: Status: Acute (2) Dilated cardiomyopathy: Status: Acute Plan Pleasant 42-year-old gentleman who is presenting with new onset congestive heart failure. Echocardiography has shown severely reduced ejection fraction with severe LV dilation. He has been drinking hard liquor for long time. 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 Doing better with guideline directed medical therapy. He has almost euvolemic at this stage. I think he can get 40 mg IV Lasix in the afternoon and can be transitioned to 40 mg p.o. once a day Lasix from tomorrow. Continue spironolactone 25 mg, Entresto and Jardiance. Adding bisoprolol 1.25 mg daily. Bisoprolol is better tolerated for borderline blood pressures and his blood pressures are low currently with the addition of guideline directed medical therapy. Thank you for allowing me to participate in the care of your patient. Please feel free to contact me if you have any questions. Time Spent With Patient Time: Total time managing care of this patient today ____ minutes. Progress Note: Quality Stroke Does the patient have a stroke diagnosis?: No Procedures Date of Service Date of Service: 01/15/23
--- NOTE | 2023-01-15 14:58 | MHC.RECOVRN ---
Met with pt in 467 after consult placed to Addiction Medicine for alcohol use. Pt admitted to [facility] for new onset CHF. Pt sitting in bed, awake, alert, easily engages in conversation, appears comfortable. Pt reports confusion regarding alcohol related to medical condition as pt denies hx of AUD. 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 Pt reports prior to one month ago, it had been months since last alcohol use. Pt reports he is able to stop alcohol use at any time and will have significant periods of time without alcohol use. Pt denies family hx AUD. Pt denies hx alcohol withdrawal, denies hx treatment for alcohol use. Denies family/friends voicing concern regarding alcohol use. Denies legal problems related to alcohol use. Denies problems with work/employment related to alcohol use. Pt reports he currently has 2 jobs and does not consume alcohol while at work. Pt does not have concerns regarding alcohol use and states If the doctor tells me to stop, I'm going to stop. Pt educated regarding supports available if needed, verbalizes understanding. Denies questions or concerns at this time. T/w available if needed. Discussed with Olinda Graham APRN.
[2023-01-15 15:15] VITALS: BP 109/70; PULSE 94; RESP 18; TEMP 36.7; O2SAT 96
[2023-01-15] MEDS: Bisoprolol Fumarate 5 MG TABLET 1.25 MG PO (15:28)
[2023-01-15 19:15] VITALS: BP 118/71; PULSE 82; RESP 18; TEMP 36.4; O2SAT 96
[2023-01-15 23:35] VITALS: BP 98/74; PULSE 90; RESP 20; TEMP 36.1; O2SAT 97
[2023-01-16 03:09] VITALS: BP 102/73; PULSE 93; RESP 20; TEMP 36.1; O2SAT 93
[2023-01-16 05:45] VITALS: BMI 32.6
[2023-01-16 07:05] LABS: Anion Gap 14 (12-20); Blood Urea Nitrogen 18 mg/dL (9-16); Calcium 9.6 mg/dL (8.4-10.2); Carbon Dioxide 26 mmol/L (22-29); Chloride 105 mmol/L (96-108); Estimated Glomerular Filt Rate > 60; Glucose Random 117 mg/dL (60-115); Magnesium 2.2 mg/dL (1.6-2.6); Potassium 4.1 mmol/L (3.3-5.1); Sodium 141 mmol/L (135-145)
[2023-01-16 07:07] LABS: B Type Natriuretic Peptide 238 pg/mL (<100)
[2023-01-16 07:13] VITALS: BP 100/60; PULSE 90; RESP 20; TEMP 35.7; O2SAT 97
[2023-01-16] MEDS: 0.9 % Sodium Chloride Flush 3 ML SYRINGE IVFLUSH (09:03)
[2023-01-16] MEDS: Sacubitril/Valsartan 24/26 1 TAB TABLET PO (09:04)
[2023-01-16] MEDS: Folic Acid 1 MG TABLET PO (09:04)
[2023-01-16] MEDS: Multivitamin TABLET 1 TAB PO (09:05)
[2023-01-16] MEDS: Thiamine HCL 100 MG TABLET PO (09:05)
[2023-01-16] MEDS: Furosemide 40 MG/4 ML VIAL IVPUSH (09:05)
[2023-01-16] MEDS: Empagliflozin 10 MG TABLET PO (09:06)
[2023-01-16] MEDS: Bisoprolol Fumarate 5 MG TABLET 1.25 MG PO (09:06)
[2023-01-16] MEDS: Spironolactone 25 MG TABLET PO (09:06)
[2023-01-16 11:14] VITALS: BP 99/59; PULSE 51; RESP 20; TEMP 36; O2SAT 98
--- NOTE | 2023-01-16 11:17 | P.DS_ITS ---
DS: Providers Provider Date of Service: 01/16/23 Date of admission: 01/14/23 02:01 Date of discharge: 01/16/23 Primary care physician: Unknown Physician Consults: 01/14/23 02:01 Consult to Cardiology Routine Consulting Provider: [facility] Reason for consultation: new onset CHF Has provider been notified: No 01/14/23 12:55 Addiction Medicine Routine Consulting Provider: Addiction Covering Reason for consultation: EtOH myopathy DS: Diagnosis Discharge Diagnosis (1) New onset of congestive heart failure: Status: Acute (2) Dilated cardiomyopathy: Status: Acute (3) Acute HFrEF (heart failure with reduced ejection fraction): Status: Acute (4) Alcohol use disorder: Status: Acute DS: Summary Hospital Course Hospital Course: from admission H+P 01/14/23 by hospitalist MD Mildred Chacko: 42-year-old male who denies any past medical history presents the hospital with complaints of shortness of breath.? Symptoms going on for 1 week.? Has orthopnea, PND, lower extremity edema.? Patient reports no history of CHF, denies any chest pain, no palpitations, no headache or change in vision, reports no cough, no sputum production, no abdominal pain nausea or vomiting, no diarrhea constipation, no urinary symptoms.? On arrival to the ED patient hemodynamically stable no significant abnormal vitals Labs are significant for WBC count of 9.3, hemoglobin of 13.4, hematocrit of 41, BNP of 540, and troponin of 15 Chest x-ray shows bronchial wall thickening which can be seen in small airway process such as asthma or atypical infection, no consolidation Patient is being admitted for further management 42yo M with heavy EtOH abuse presenting with ADHF found to have HFrEF with LVEF 15-20%, likely dilated cardiomyopathy due to alcohol. He was diuresed with IV furosemide and was negative 5120 mL over the course of his hospitalization. Cardiology was consulted. He was started on neurohormonal modulation with Entresto, bisoprolol, and spironolactone. He was also started on empagliflozin. Once euvolemic, he was transitioned to oral furosemide and discharged home with close Cardiology follow-up. He met with the Recovery Team and did not express any concerns about his ability to quit alcohol use. He had no signs of alcohol withdrawal. Time Spent with Patient Time attestation: Total time managing care of this patient today ___45_ minutes. Discharge coordination time: Greater than 30 minutes Quality: Safe Use of Opioids Does Pt have an Active Cancer Diagnosis on the Problem List?: No Quality: Stroke Does the patient have a stroke diagnosis?: No Physical Exam Vital Signs: Vital Signs: Last Vital Signs Temp 96.2 F L 01/16/23 07:13 Pulse 90 01/16/23 07:13 Resp 20 01/16/23 07:13 BP 100/60 01/16/23 07:13 Pulse Ox 97 01/16/23 07:13 O2 Del Method Room Air 01/16/23 07:13 BMI result Body Mass Index 32.6 Gen: in no acute distress HEENT: sclera anicteric, moist mucus membranes Neck: supple Lungs: clear to auscultation bilaterally Heart: regular rate and rhythm, no murmurs Abd: soft, non-tender, non-distended Ext: trace bilateral lower extremity edema Skin: warm/well-perfused Neuro: alert and oriented x3, no focal findings Psych: appropriate affect DS: Data Data Completed and Pending Completed studies during hospitalization [Text1]: Laboratory Results WBC 9.3 X10*3/uL (4.8-10.8) 01/13/23 21:59 RBC 4.25 X10*6/uL (4.60-5.80) L 01/13/23 21:59 Hgb 13.4 g/dl (14.0-18.0) L 01/13/23 21:59 Hct 41.0 % (42.0-52.0) L 01/13/23 21:59 MCV 96.5 fL (80.0-98.0) 01/13/23 21:59 MCH 31.5 pg (27.0-33.0) 01/13/23 21:59 MCHC 32.7 g/dl (31.0-36.0) 01/13/23 21:59 RDW 14.5 % (11.0-16.0) 01/13/23 21:59 Plt Count 226 X10*3/uL (160-400) 01/13/23 21:59 MPV 9.9 fL (9.4-12.4) 01/13/23 21:59 Immature Gran % (Auto) 0.2 % (0.0-0.4) 01/13/23 21:59 Neut % (Auto) 65.7 % (45-73) 01/13/23 21:59 Lymph % (Auto) 27.4 % (20-40) 01/13/23 21:59 [place] % (Auto) 5.8 % (2-11) 01/13/23 21:59 Eos % (Auto) 0.6 % (0-4) 01/13/23 21:59 Baso % (Auto) 0.3 % (0-2) 01/13/23 21:59 Lymph # (Auto) 2.6 X10*3/uL (1.2-4.9) 01/13/23 21:59 [place] # (Auto) 0.5 X10*3/uL (0.1-1.2) 01/13/23 21:59 Eos # (Auto) 0.1 X10*3/uL (0.0-0.4) 01/13/23 21:59 Baso # (Auto) 0.0 X10*3/uL (0.0-0.2) 01/13/23 21:59 Abs Immat Gran (auto) 0.02 X10*3/uL (0.00-0.03) 01/13/23 21:59 Absolute Neuts (auto) 6.1 x10*3/uL (2.0-8.3) 01/13/23 21:59 Absolute Nucleated RBC 0.000 X10*3/uL (0.0-0.012) 01/13/23 21:59 Nucleated RBC % (auto) 0.0 /100WBC (0.0-0.2) 01/13/23 21:59 Sodium 141 mmol/L (135-145) 01/16/23 06:21 Potassium 4.1 mmol/L (3.3-5.1) 01/16/23 06:21 Chloride 105 mmol/L (96-108) 01/16/23 06:21 Carbon Dioxide 26 mmol/L (22-29) 01/16/23 06:21 Anion Gap 14 (12-20) 01/16/23 06:21 BUN 18 mg/dL (9-16) H 01/16/23 06:21 Creatinine 1.05 mg/dL (0.5-1.4) 01/16/23 06:21 Estim Creat Clear Calc 118.0 01/16/23 06:21 Estimated GFR > 60 01/16/23 06:21 Random Glucose 117 mg/dL (60-115) H 01/16/23 06:21 Estimat Average Glucose 111 mg/dL 01/14/23 04:52 Hemoglobin A1c % 5.5 % 01/14/23 04:52 Calcium 9.6 mg/dL (8.4-10.2) 01/16/23 06:21 Magnesium 2.2 mg/dL (1.6-2.6) 01/16/23 06:21 Total Bilirubin 0.8 mg/dL (0.0-1.0) 01/14/23 04:52 AST 25 U/L (5-37) 01/14/23 04:52 ALT 34 U/L (0-40) 01/14/23 04:52 Alkaline Phosphatase 76 U/L (39-117) 01/14/23 04:52 Troponin I High Sens 12.4 ng/L (<3.5-35.0) 01/14/23 08:53 B-Natriuretic Peptide 238 pg/mL (<100) H 01/16/23 06:21 Total Protein 6.9 g/dL (6.5-8.0) 01/14/23 04:52 Albumin 4.0 g/dL (3.5-5.0) 01/14/23 04:52 Triglycerides 192 mg/dL 01/15/23 06:26 Cholesterol 177 mg/dL 01/15/23 06:26 LDL Cholesterol, Calc 101 mg/dl 01/15/23 06:26 HDL Cholesterol 38 mg/dL 01/15/23 06:26 Respiratory Panel [place]aly See Note 01/14/23 08:21 Adenovirus (Rapid PCR) Not Detected (Not Detect.) 01/14/23 08:21 B.pert (TEM-PCR) Not Detected (Not Detect.) 01/14/23 08:21 B.parapertussis DNA PCR Not Detected (Not Detect.) 01/14/23 08:21 C. pneumoniae DNA (PCR) Not Detected (Not Detect.) 01/14/23 08:21 Coronavirus OC43 (PCR) Not Detected (Not Detect.) 01/14/23 08:21 Coronavirus HKU1 (PCR) Not Detected (Not Detect.) 01/14/23 08:21 Coronavirus 229E (PCR) Not Detected (Not Detect.) 01/14/23 08:21 Coronavirus NL63 (PCR) Not Detected (Not Detect.) 01/14/23 08:21 Human Metapneumovir PCR Not Detected (Not Detect.) 01/14/23 08:21 Influenza A (RT-PCR) Not Detected (Not Detect.) 01/14/23 08:21 Influenza B (RT-PCR) Not Detected (Not Detect.) 01/14/23 08:21 M. pneumoniae (PCR) Not Detected (Not Detect.) 01/14/23 08:21 Parainfluenza 1 (PCR) Not Detected (Not Detect.) 01/14/23 08:21 Parainfluenza 2 (PCR) Not Detected (Not Detect.) 01/14/23 08:21 Parainfluenza 3 (PCR) Not Detected (Not Detect.) 01/14/23 08:21 Parainfluenza 4 (PCR) Not Detected (Not Detect.) 01/14/23 08:21 RSV (PCR) Not Detected (Not Detect.) 01/14/23 08:21 Entero/Rhino (PCR) Not Detected (Not Detect.) 01/14/23 08:21 SARS-CoV-2 RNA (RT-PCR) Not Detected (Not Detect.) 01/14/23 08:21 Impressions Chest X-Ray 01/13/23 06:38 IMPRESSION: Bronchial wall thickening can be seen with a small airways process such as asthma or atypical/viral infection. No focal consolidation. TTE 01/14/23 - Severely increased left ventricular cavity size.? There is ? ? normal left ventricular wall thickness.? The left ventricular? ? systolic function is severely decreased.? The visually estimated ejection fraction is between 15-20%. ? - E/E prime ratio is >15, consistent with elevated filling ? ? ? pressures. ? - Normal right ventricular cavity size.? There is borderline ? ? right ventricular systolic function. ? - The left atrium is severely dilated. ? - The right ventricular systolic pressure is 45 mmHg.? Significantly elevated right atrial pressure.? Mild to moderate? pulmonary hypertension is present. ? - The inferior vena cava is dilated and collapses less than 50%? with inspiration.? Discharge Plan Discharge Anticipated Discharge Date/Time: 01/16/23 09:43 Patient Disposition: Home, Self-Care Discharge Diagnosis: Congestive heart failure Dilated cardiomyopathy Referrals: Alireza Bailey MD [Physician] - 1 Week Physician,Gumaro Eli [Primary Care Provider] - 1 Week Discharge Medications: New bisoprolol fumarate 5 mg Tablet 1.25 mg PO DAILY Qty: 30 0RF Entresto 24-26 mg Tablet 1 tab PO BID Qty: 60 0RF Protocol: Hold for SBP< HOLD for SBP < : 90 spironolactone 25 mg Tablet 25 mg PO DAILY Qty: 30 0RF Protocol: Hold for SBP< HOLD for SBP < : 90 Jardiance 10 mg Tablet 10 mg PO DAILY Qty: 30 0RF multivitamin [Daily-Sara] Tablet 1 tab PO DAILY Qty: 30 0RF Discharge Orders: Discharge Order (Routine); Ordered 01/16/23 Ordered By: Abe Chan Diet: Low salt diet Activity on Discharge: As tolerated Stand Alone Forms: Patient Portal Discharge page, Work/School Release Care Plan Goals: heart health Health Concerns: Congestive heart failure Dilated cardiomyopathy Plan of Treatment: Low-sodium diet: less than 2000 mg of sodium daily. Weigh yourself daily and call your doctor if your weight goes up by more than 3 lb/day or 5 lb/week. New medications: Furosemide [diuretic] 40 mg twice daily Spironolactone [diuretic/blood pressure medication] 25 mg once daily Entresto [blood pressure/heart medication] 24/26 mg twice daily Bisoprolol [blood pressure/heart medication] 1.25 mg once daily Empagliflozin [diuretic/heart medication] 10 mg once daily Please follow up with your primary care doctor within 1 week. Return to the hospital if you experience recurrent or worsening symptoms. Assessment: See Discharge Summary.
--- NOTE | 2023-01-16 11:45 | MHC.CM.PN ---
Pt medically cleared for D/C home today, he has his own transport.
== END 2023-01-16 12:21 | disposition home or self-care (01) | DRG 194 ==
LOC: HO.ED 01-14 01:45 → HO.EDOVER 01-14 02:05 → HO.IMC 01-14 14:06
PROVIDERS: Admitting Provider Internal Medicine; Emergency Provider Emergency Medicine; Visit Provider Family Medicine
DX: I50.21 Acute systolic (congestive) heart failure (principal); I42.0 Dilated cardiomyopathy; I42.6 Alcoholic cardiomyopathy; F10.10 Alcohol abuse, uncomplicated; F17.210 Nicotine dependence, cigarettes, uncomplicated; Z71.6 Tobacco abuse counseling; Z87.891 Personal history of nicotine dependence; Z79.899 Other long term (current) drug therapy
CPT/HCPCS: 36415; 71046; 80048; 80053; 80061; 83036; 83735; 83880; 84484; 85025; 87633; 93306; 99285; J1940; Q9957

== ENCOUNTER 2023-01-16 23:08 | Inpatient (IN) | payer OTHER, SELFPAY ==
--- NOTE | 2023-01-16 | ECG_ITS ---
Test Reason : DIZZY Blood Pressure : / mmHG Vent. Rate : 091 BPM Atrial Rate : 091 BPM P-R Int : 152 ms QRS Dur : 098 ms QT Int : 376 ms P-R-T Axes : 069 022 080 degrees QTc Int : 462 ms Normal sinus rhythm Biatrial enlargement Cannot rule out Anterior infarct , age undetermined Abnormal ECG No previous ECGs available Referred By: Generic ED Physician Electronically Signed By:Alireza Bailey
--- NOTE | ~2023-01-16 | XR_ITS ---
EXAMINATION: XR CHEST CLINICAL INFORMATION: Dyspnea COMPARISON: 01/13/2023 TECHNIQUE: Frontal view of the chest was obtained. FINDINGS: Cardiac leads overlie the chest. The lungs are well expanded. No dense consolidation. No edema or effusion. No pneumothorax. The cardiomediastinal silhouette remains prominent. No acute osseous abnormality. XR/XR chest 1V IMPRESSION: Clear lungs. Similar prominence of the cardiac silhouette.
--- NOTE | ~2023-01-16 | XR_ITS ---
EXAMINATION: XR CHEST CLINICAL INFORMATION: Triple-lumen catheter placement COMPARISON: 01/17/2023 TECHNIQUE: Frontal view of the chest was obtained. FINDINGS: There is now a right internal jugular central venous catheter in place terminating near the cavoatrial junction. Cardiac leads overlie the chest. The lungs are well expanded. No consolidation, edema, or effusion. No pneumothorax. The cardiomediastinal silhouette remains prominent. XR/XR chest 1V IMPRESSION: Right internal jugular central venous catheter terminates near the cavoatrial junction. No pneumothorax.
[2023-01-16 23:14] VITALS: BP 88/51; PULSE 98; RESP 19; TEMP 36.6; O2SAT 97; BMI 33.9
[2023-01-16 23:18] VITALS: BP 103/61
--- NOTE | 2023-01-16 23:20 | ED_ITS ---
HPI - General Adult General Chief complaint: Dizziness Stated complaint: was seen recently, needs prescription Time Seen by Provider: 01/16/23 23:15 Source: patient Mode of arrival: ambulatory Limitations: no limitations History of Present Illness HPI narrative: 42-year-old male history of dilated cardiomyopathy, new onset congestive heart failure just discharged from this hospital earlier today, alcohol use disorder presenting to the emergency department for evaluation of dizziness that started prior to arrival, patient noted the dizziness is worse with positional changes, describes as the room spinning, and like he cannot catch his balance and at times accompanied by vision changes. He states that if he moves rapidly he becomes dizzy. Patient reports that he was recently discharged from this facility for an acute CHF exacerbation, reports he was sent medications however has not picked them up from the pharmacy because they were not available. Patient denies chest pain, shortness of breath, fevers, chills, nausea, vomiting, abdominal pain, weakness, this vision, difficulties with word finding Related Data Previous Rx's Medication Instructions Recorded bisoprolol fumarate 5 mg tablet 1.25 mg PO DAILY #30 tabs 01/16/23 empagliflozin 10 mg tablet 10 mg PO DAILY #30 tabs 01/16/23 (Jardiance) multivitamin (Daily-Sara tablet) 1 tab PO DAILY #30 tabs 01/16/23 sacubitril 24 mg-valsartan 26 mg 1 tab PO BID #60 tabs 01/16/23 tablet (Entresto) spironolactone 25 mg tablet 25 mg PO DAILY #30 tabs 01/16/23 Allergies Allergy/AdvReac Type Severity Reaction Status Date / Time No Known Allergies Allergy Verified 01/13/23 21:43 [No Known Allergies*] Review of Systems Review of Systems: Constitutional : No Weight loss, No Fever, No Chills, No Fatigue, No Malaise ENT/Mouth : No sore throat, No Rhinorrhea Eyes: No Eye Pain, No Swelling, No Redness Cardiovascular : No Chest Pain, No SOB, No Dyspnea on Exertion, No Orthopnea, No Edema, No Palpitations Respiratory : No Cough, No Sputum, No Wheezing Gastrointestinal : No Nausea, No Vomiting, No Diarrhea, No Constipation, No abdominal Pain, No Hematochezia, No Melena Genitourinary : No Dysuria, No Urinary Frequency, No Hematuria, Musculoskeletal : No joint pain, No Myalgias, No Joint Swelling Skin : No Skin Lesions, No rash Neuro : No Weakness, No Numbness, + Dizziness, No Headache Psych : No Anxiety/Panic, No Depression All other systems reviewed and are negative Yes all other systems are reviewed and are negative [facility] Past Medical History Attestation statement: The following information was validated with the patient. Source: old records reviewed and nursing notes reviewed Medical History No pertinent past medical history Surgical History H/O thumb surgery Family History Family History Mother CHF (congestive heart failure) CAD (coronary artery disease) Social History Social History Household Members: None Housing: Apartment Do you presently have visiting nurse or other home services: No Alcohol intake: former Patient Tobacco Use Status: Current everyday Tobacco user Tobacco use type: Cigarette Smoked in Last 30 Days: Yes Use of substances other than those prescribed or required for medical reasons: No Substance Use Type: Marijuana Advance Directives: No Advance Directives Information Provided: No service: No Current occupational status: employed Physical Exam ED Vital Signs: Vital Signs - 24 hr 01/16/23 23:14 01/16/23 23:18 01/16/23 23:29 Temperature 97.8 F Pulse Rate 98 91 Respiratory Rate 19 Blood Pressure 88/51 L 103/61 92/55 L Pulse Oximetry 97 Oxygen Delivery Method Room Air Oxygen Flow Rate 01/16/23 23:30 01/17/23 00:47 01/17/23 00:49 Temperature Pulse Rate 53 84 89 Respiratory Rate Blood Pressure 101/55 L 80/50 L 92/59 L Pulse Oximetry Oxygen Delivery Method Oxygen Flow Rate 01/17/23 00:49 01/17/23 02:31 01/17/23 03:08 Temperature 97 F Pulse Rate 90 74 74 Respiratory Rate 18 18 Blood Pressure 90/57 L 78/47 L 94/56 L Pulse Oximetry 98 95 Oxygen Delivery Method Room Air Oxygen Flow Rate 01/17/23 03:55 01/17/23 04:13 01/17/23 05:07 Temperature Pulse Rate 77 77 Respiratory Rate 22 H Blood Pressure 83/53 L 94/61 87/49 L Pulse Oximetry 95 96 99 Oxygen Delivery Method Nasal Cannula Room Air Room Air Oxygen Flow Rate 1 2 01/17/23 06:02 Temperature 97.6 F Pulse Rate 95 Respiratory Rate 16 Blood Pressure 94/67 Pulse Oximetry 96 Oxygen Delivery Method Room Air Oxygen Flow Rate BMI result Body Mass Index 33.9 vss Appearance: Alert.? Oriented X3.? No acute distress.? Head: Normocephalic, atraumatic, no step-offs or deformities Eyes: Pupils equal, round and reactive to light.? ENT: Pharynx normal.? Neck: Normal inspection.? Neck supple.? CVS: Normal heart rate and rhythm.? Pulses normal.? Respiratory: No respiratory distress.? Breath sounds normal.? Abdomen: Soft and nontender.? Skin: Skin warm and dry.? Normal skin color.? Normal skin turgor.? Extremities: No lower extremity edema.? No calf ttp. 5/5 strength to bilateral upper and lower extremities Neuro: Oriented X 3.? No motor deficit.? No sensory deficit. CN 2-12 intact Normal [id number], tmlr-ed-[id number], steady tandem gait normal coordination. NIH stroke scale 0. Course Reevaluation(s) Reevaluation #1: CBC with slight leukocytosis, I do not suspect this is from an infection. Hemoglobin hematocrit slightly higher than patient's baseline likely secondary to hemoconcentration due to dehydration/poor p.o. intake. Chemistry with slightly elevated BUN and creatinine likely secondary to dehydration this could be secondary to diuretics. BNP 257, I am giving patient a L of fluids he lungs are clear, no signs of acute CHF at this time, no lower extremity edema. Orthostatic vital signs were done initially which did show a significant drop in pulse rate and patient was extremely dizzy and was unable to go from sitting to standing due to dizziness. He sat down, a L of normal saline hanging at this time peer Time: 00:25 Reevaluation #2: Repeat orthostatics after fluids patient still reporting dizziness pressures still soft. Pulse rate improved however patient to be admitted to the hospital for orthostatic dizziness. Time: 00:57 Medications Administered Discontinued Medications Generic Name Dose Route Start Last Admin Trade Name Freq PRN Reason Stop Dose Admin Sodium Chloride 1,000 mls @ 999 mls/hr 01/16/23 23:45 01/17/23 01:08 Ns IV 01/17/23 00:45 Infused .Q1H1M MICK Infusion Albumin Human 100 mls @ 100 mls/hr 01/17/23 02:00 01/17/23 04:12 Kedbumin 25 % IV 01/17/23 03:59 Infused Q1H MICK Infusion Sodium Chloride 500 mls @ 500 mls/hr 01/17/23 02:36 01/17/23 03:59 Ns IV 01/17/23 03:35 Infused .Q1H ONE Infusion Sodium Chloride 500 mls @ 500 mls/hr 01/17/23 04:00 01/17/23 05:11 Ns IV 01/17/23 04:59 Infused .Q1H MICK Infusion Procedures Central Line Placement Right IJ: Time Out Performed: Yes Patient Placed on Monitor/Pulse Ox: Yes MD Prep: mask, gown and gloves Central Line Prep: Povidone-Iodine 1%, Chlorhexidine scrub and sterile drapes applied Local Anesthetic: lidocaine 1% Amount of anesthesia used (mL): 5 Ultrasound Used for Placement: Yes Central Line Lumen Inserted: triple Post Procedure: sutured in place, good blood return, all ports aspirated, flushed, capped and sterile dressing applied Post Procedure X-Ray: tip of catheter in good position and no pneumothorax seen Patient Tolerated Procedure: well and no complications Complications: none Medical Decision Making Medical Decision Making [facility] Narrative: [id number] 42-year-old male recently discharged from this facility for acute CHF exacerbation presents with disease particularly with positional changes. Physical exam benign. Pressure soft however. Likely orthostatic dizziness secondary to dehydration or side effect of diuretics. Unlikely posterior stroke, stroke, intracranial hemorrhage. Will rule out metabolic derangements and dysrhythmias. Plans orthostatics, basic labs. -I was informed by Dr. Arechiga and the patient's nurse that the blood pressure has been between high 70s and it 80s. Patient has already received 2 L of normal saline and 2 doses of albumin. Blood pressure is still in the mid 80s. A central line was inserted, Levophed was started, patient will be going to the ICU. Discussed patient with Dr. Correa Differential Diagnosis Differential Diagnoses: The differential diagnosis associated with the presentation includes Likely orthostatic dizziness secondary to dehydration or side effect of diuretics. Unlikely posterior stroke, stroke, intracranial hemorrhage. Will rule out metabolic derangements and dysrhythmias. Admission/Observation Consideration of admission/observation: Escalation of care including admission/observation considered Lab Data MDM Lab Attestation statement: I reviewed the patient's lab results. 01/16/23 23:40 01/16/23 23:40 Labs: Lab Results 01/16/23 01/16/23 01/16/23 Range/Units 23:40 23:40 23:40 WBC 11.3 H (4.8-10.8) X10*3/uL RBC 5.24 D (4.60-5.80) X10*6/uL Hgb 16.6 D (14.0-18.0) g/dl Hct 49.2 (42.0-52.0) % MCV 93.9 (80.0-98.0) fL MCH 31.7 (27.0-33.0) pg MCHC 33.7 (31.0-36.0) g/dl RDW 14.2 (11.0-16.0) % Plt Count 300 D (160-400) X10*3/uL MPV 9.9 (9.4-12.4) fL Immature Gran % (Auto) 0.4 (0.0-0.4) % Neut % (Auto) 63.9 (45-73) % Lymph % (Auto) 25.1 (20-40) % [place] % (Auto) 9.4 (2-11) % Eos % (Auto) 0.9 (0-4) % Baso % (Auto) 0.3 (0-2) % Lymph # (Auto) 2.8 (1.2-4.9) X10*3/uL [place] # (Auto) 1.1 (0.1-1.2) X10*3/uL Eos # (Auto) 0.1 (0.0-0.4) X10*3/uL Baso # (Auto) 0.0 (0.0-0.2) X10*3/uL Abs Immat Gran (auto) 0.04 H (0.00-0.03) X10*3/uL Absolute Neuts (auto) 7.3 (2.0-8.3) x10*3/uL Absolute Nucleated RBC 0.000 (0.0-0.012) X10*3/uL Nucleated RBC % (auto) 0.0 (0.0-0.2) /100WBC Sodium 140 (135-145) mmol/L Potassium 4.2 (3.3-5.1) mmol/L Chloride 107 (96-108) mmol/L Carbon Dioxide 24 (22-29) mmol/L Anion Gap 13 (12-20) BUN 21 H (9-16) mg/dL Creatinine 1.33 (0.5-1.4) mg/dL Estim Creat Clear Calc 95.0 Estimated GFR 59 Random Glucose 101 (60-115) mg/dL Calcium 9.8 (8.4-10.2) mg/dL Total Bilirubin 0.6 (0.0-1.0) mg/dL AST 21 (5-37) U/L ALT 37 (0-40) U/L Alkaline Phosphatase 80 (39-117) U/L B-Natriuretic Peptide 257 H (<100) pg/mL Total Protein 6.9 (6.5-8.0) g/dL Albumin 3.9 (3.5-5.0) g/dL Independent Interpretation I performed an independent interpretation of an: EKG (Ventricular done and then TN normal QRS, QT/QTC normal. EKG with normal sinus rhythm, biatrial enlargement, no signs of acute ischemia no ST elevations or inversions.) External Record Review External record reviewed: Inpatient record, Office record, Outpatient record, Prior outpatient labs, Prior outpatient radiology, Primary care record and Outside ED record Tests considered The following testing was considered but not selected: Negative NIH stroke scale, no indication for head CT. Core Measures AMI core measures followed: Yes Measure exclusions: not indicated Critical Care Time Critical Care Time Critical Care Time: Yes Total Critical Care Time: 120 Attestation: I have personally provided critical care time. Time includes review of lab data, radiology results, discussion with consultants, and monitoring for potential decompensation. Intervention performed as documented. Discharge Plan Discharge Clinical Impression: Orthostatic dizziness, Dehydration, CHF (congestive heart failure) Patient Disposition: Admitted As Inpatient Prescriptions: No Action bisoprolol fumarate 5 mg Tablet 1.25 mg PO DAILY Qty: 30 0RF Entresto 24-26 mg Tablet 1 tab PO BID Qty: 60 0RF Protocol: Hold for SBP< HOLD for SBP < : 90 spironolactone 25 mg Tablet 25 mg PO DAILY Qty: 30 0RF Protocol: Hold for SBP< HOLD for SBP < : 90 Jardiance 10 mg Tablet 10 mg PO DAILY Qty: 30 0RF multivitamin [Daily-Sara] Tablet 1 tab PO DAILY Qty: 30 0RF
[2023-01-16 23:29] VITALS: BP 92/55; PULSE 91
[2023-01-16 23:30] VITALS: BP 101/55; PULSE 53
[2023-01-16 23:53] LABS: Basophils Percent Auto 0.3 % (0-2); Eosinophils Absolute Auto 0.1 X10*3/uL (0.0-0.4); Eosinophils Percent Auto 0.9 % (0-4); Hematocrit 49.2 % (42.0-52.0); Hemoglobin 16.6 g/dl (14.0-18.0); Imm Gran Abs Auto 0.04 X10*3/uL (0.00-0.03); Imm Gran Pct Auto 0.4 % (0.0-0.4); Lymphocytes Absolute Auto 2.8 X10*3/uL (1.2-4.9); Lymphocytes Percent Auto 25.1 % (20-40); Mean Corpuscular HGB Conc 33.7 g/dl (31.0-36.0); Mean Corpuscular Hemoglobin 31.7 pg (27.0-33.0); Mean Corpuscular Volume 93.9 fL (80.0-98.0); Mean Platelet Volume 9.9 fL (9.4-12.4); Monocytes Absolute Auto 1.1 X10*3/uL (0.1-1.2); Monocytes Percent Auto 9.4 % (2-11); Neutrophils Absolute Auto 7.3 x10*3/uL (2.0-8.3); Neutrophils Percent Auto 63.9 % (45-73); Platelet Count 300 X10*3/uL (160-400); Red Blood Count 5.24 X10*6/uL (4.60-5.80); Red Cell Distribution Width 14.2 % (11.0-16.0); White Blood Count 11.3 X10*3/uL (4.8-10.8)
[2023-01-16 23:54] LABS: MANUAL DIFF FLAG NO
[2023-01-16] MEDS: 0.9 % Sodium Chloride 1,000 ML 999 ML IV (23:58)
[2023-01-17] VITALS (36 sets, daily range): BP systolic 78–119; BP diastolic 47–83; PULSE 72–101; RESP 12–22; TEMP 36.1–37.1; O2SAT 95–99; BMI 33.5
[2023-01-17 00:12] LABS: B Type Natriuretic Peptide 257 pg/mL (<100)
[2023-01-17 00:14] LABS: Alanine Aminotransferase 37 U/L (0-40); Albumin Level 3.9 g/dL (3.5-5.0); Alkaline Phosphatase 80 U/L (39-117); Anion Gap 13 (12-20); Aspartate Amino Transferase 21 U/L (5-37); Bilirubin Total 0.6 mg/dL (0.0-1.0); Blood Urea Nitrogen 21 mg/dL (9-16); Calcium 9.8 mg/dL (8.4-10.2); Carbon Dioxide 24 mmol/L (22-29); Chloride 107 mmol/L (96-108); Estimated Glomerular Filt Rate 59; Glucose Random 101 mg/dL (60-115); Potassium 4.2 mmol/L (3.3-5.1); Sodium 140 mmol/L (135-145); Total Protein 6.9 g/dL (6.5-8.0)
[2023-01-17] MEDS: Albumin Human 25 % 100 ML IV ×2 (01:57→03:07)
--- NOTE | 2023-01-17 01:57 | PC.NURSE ---
Patient alert and oriented x3. BP 90/52 lung clear to auscultation. patient report SOB Notified Dr. Arechiga. administered albumin as per mar
--- NOTE | 2023-01-17 02:42 | PC.NURSE ---
Patient alert and oriented, bp 78/45 map 63, o2 95%, hr 79, lung clear to auscultation. Albumin running. notified. Administered 500ml NS as per MAR
[2023-01-17] MEDS: 0.9 % Sodium Chloride 500 ML IV ×2 (02:49→04:06)
--- NOTE | 2023-01-17 03:12 | PC.NURSE ---
Patient alert and oriented. BP 99/62 map 72, o2 95-100%, lungs clear to auscultation. Second bottle of albumin infusing.
--- NOTE | 2023-01-17 03:54 | PC.NURSE ---
Addendum entered by Ann Moreiranacion 01/17/23 04:09: Map 64, HR 77. 02 98% on 2l nasal cannula. MD made aware, Original Note: Patient alert and oriented. BP 83/53
--- NOTE | 2023-01-17 04:10 | PC.NURSE ---
Administer bolus of 500ml NS as per OCT. Lungs clear to to auscultation 02 sat 97% on 2l nasal cannula. Continues to be in trendelenburg position
--- NOTE | 2023-01-17 05:08 | PC.NURSE ---
bp 87/49 map 60. MD aware
[2023-01-17] MEDS: Norepinephrine Bitartrate/D5W 8 MG/250 ML PLAST..BAG 10.63 MG IV (06:14)
--- NOTE | 2023-01-17 07:11 | PHA.MEDREC ---
Pharmacy Consult ? Medication Reconciliation Pharmacy has completed the medication reconciliation. Pt discharged 01/16/23; reviewed med rec done by nursing/reviewed discharge summary
--- NOTE | 2023-01-17 07:21 | PC.NURSE ---
PT AWAKE AND ALERT. AWAITING BED ASSIGNMENT IN ICU
--- NOTE | 2023-01-17 08:53 | PC.NURSE ---
ATTEMPT TO CALL REPORT AT [phone] AND [phone]
--- NOTE | 2023-01-17 09:09 | PC.NURSE ---
patient alert, oriented x4. NSR on the monitor. levophed running per OCT- BP maintaining in 90s/low 10os systolically. able to make needs known. call yap within reach. will CTM
--- NOTE | 2023-01-17 09:38 | MHC.CM.PN ---
Pt readmitted w/hypotension: on pressors in ICU: Pt states he felt dizzy upon return to home and hadn't filled his scripts d/t some pharmacy problem. Pt independent w/care needs: has transportation and new PCP appt in April: HCP copy requested. CM to follow for d/c needs.
[2023-01-17] MEDS: Midodrine HCl 5 MG TABLET PO ×3 (10:27→20:25)
--- NOTE | 2023-01-17 13:22 | PM.CCHP ---
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 Patient has been given some IV fluids and started on vasopressor support and admitted to the intensive care unit. In the intensive care unit patient was transition to midodrine from Levophed. Review of Systems Constitutional: Constitutional: Denies daytime sleepiness, Denies excessive sweating, Denies fatigue, Denies fever(s), Denies lethargy, Denies malaise, Denies night sweats, Denies snoring and Denies weight loss Eyes: Eyes: Denies blurry vision and Denies itchy eyes ENT: Reports dizziness, Denies nasal congestion, Denies post nasal drip, Denies sinus pain, Denies sinus pressure and Denies other ( Thrush) Cardiovascular: Cardiovascular: Denies chest pain, Denies pedal edema, Denies dyspnea, Denies orthopnea and Denies paroxysmal nocturnal dyspnea Respiratory: Respiratory: Denies cough, Denies hemoptysis, Denies excessive phlegm production, Denies dyspnea, Denies snoring and Denies wheezing Gastrointestinal: Gastrointestinal: Denies abdominal pain and Denies heartburn Musculoskeletal: Musculoskeletal: Denies myalgias, Denies arthralgias and Denies joint swelling Integumentary/Breasts: Skin/Breast: Denies rash Neurologic: Reports dizziness, Denies memory loss and Denies seizure-like activity Psychiatric: Psychiatric: Denies abnormal sleep pattern, Denies anxiety and Denies memory loss Endocrine: Endocrine: Denies excessive sweating, Denies fatigue and Denies heat intolerance Hematologic/Lymphatic: Hematologic/Lymphatic: Denies easy bruising Allergic/Immunologic: Allergic/Immunologic: Denies itchy eyes, Denies seasonal rhinorrhea and Denies wheezing PMFSH Past Medical History Medical History No pertinent past medical history Family History Family History Mother CHF (congestive heart failure) CAD (coronary artery disease) Surgical History Surgical History H/O thumb surgery Social History Social History Household Members: Family Housing: Apartment Do you presently have visiting nurse or other home services: No Alcohol intake: former Patient Tobacco Use Status: Former Tobacco user Tobacco use type: Cigarette Smoked in Last 30 Days: Yes Patient Interested in Nicotine Replacement: No Patient Given Instructions on How to Stop Smoking: No (Pt reported stopped smoking a week ago) Second Hand Smoke Exposure: No Use of substances other than those prescribed or required for medical reasons: Yes Substance Use Type: Marijuana Last Used Substance: Unknown Currently Displaying Signs/Symptoms of Drug Intoxication Withdrawal: No Any prior treatment program specific to substance use: No Have you been hit, kicked, punched, or otherwise hurt by someone within the past year? If so, by whom?: No Do you feel safe in your current relationship?: Yes Is there a partner from a previous relationship who is making you feel unsafe now?: No Are you made to feel afraid or neglected: No Advance Directives: No Advance Directives Information Provided: No Advance Directives on File: Yes Do you have thoughts of harming others: None Recently lost weight without trying: No Eating poorly because of decreased appetite: No Nutrition Risks: No Nutritional Risk Poor oral hygiene: No service: No Current occupational status: employed Meds Allergies Allergy/AdvReac Type Severity Reaction Status Date / Time No Known Allergies Allergy Verified 01/13/23 21:43 [No Known Allergies*] Active Medications: Current Medications Heparin Sodium (Porcine) (Heparin Sodium,Porcine 5,000 Unit/Ml Vial) 5,000 unit SUBCUT TID [facility] Last Admin: 01/17/23 09:20 Dose: Not Given Norepinephrine Bitartrate (Levophed) 8 mg in 250 mls @ 0 mls/hr IV .Q0M [facility]; Protocol Last Titration: 01/17/23 13:00 Dose: Infused Midodrine (Midodrine Hcl 5 Mg Tablet) 5 mg PO TID [facility] Last Admin: 01/17/23 10:27 Dose: 5 mg Pharmacy Consult (Consult Rx Perform Med Rec) 1 each MISCELLANE ONCE PRN PRN Reason: Consult order Physical Exam Vital Signs: Vital Signs: Last Vital Signs Temp 98.5 F 01/17/23 12:00 Pulse 101 H 01/17/23 13:00 Resp 18 01/17/23 13:00 BP 103/68 01/17/23 13:00 Pulse Ox 96 01/17/23 13:00 O2 Del Method Room Air 01/17/23 13:00 O2 Flow Rate 2 01/17/23 05:07 BMI result Body Mass Index 33.5 Const: General: no acute distress and alert Nutritional Appearance: not obese Orientation/consciousness: Other orientation findings ( oriented) HEENT: Head: Yes atraumatic Mouth: no other ( thrush) Throat: No postnasal drainage Eyes: General: appearance normal, both eyes and all related structures Sclerae: sclerae normal EOM: EOMs intact bilaterally Neck: Neck: Yes supple Lymphatic: no lymphadenopathy noted Resp: Effort & Inspection: normal respiratory effort and no use of accessory muscles Auscultation: clear to auscultation bilaterally Cardio: Rate: regular rate Rhythm: regular rhythm Heart sounds: no gallops, no murmurs and no rubs GI: Palpation (GI): Soft to palpation and Other GI palpation findings present ( nontender) Skin: General skin exam: other ( warm) Rashes: no rashes Extrem: General: No clubbing, No cyanosis and No edema Results Labs 01/16/23 23:40 01/16/23 23:40 Labs: Laboratory Results - last 24 hr 01/16/23 01/16/23 01/16/23 23:40 23:40 23:40 MCV 93.9 MCH 31.7 MCHC 33.7 RDW 14.2 Plt Count 300 D MPV 9.9 Immature Gran % (Auto) 0.4 Neut % (Auto) 63.9 Lymph % (Auto) 25.1 [place] % (Auto) 9.4 Eos % (Auto) 0.9 Baso % (Auto) 0.3 Lymph # (Auto) 2.8 [place] # (Auto) 1.1 Eos # (Auto) 0.1 Baso # (Auto) 0.0 Abs Immat Gran (auto) 0.04 H Absolute Neuts (auto) 7.3 Absolute Nucleated RBC 0.000 Nucleated RBC % (auto) 0.0 Anion Gap 13 Estim Creat Clear Calc 95.0 Estimated GFR 59 Random Glucose 101 Calcium 9.8 Total Bilirubin 0.6 AST 21 ALT 37 Alkaline Phosphatase 80 B-Natriuretic Peptide 257 H Total Protein 6.9 Albumin 3.9 Imaging Radiologist's Impressions: Impressions Chest X-Ray 01/17/23 04:05 IMPRESSION: Clear lungs. Similar prominence of the cardiac silhouette. Chest X-Ray 01/17/23 06:07 IMPRESSION: Right internal jugular central venous catheter terminates near the cavoatrial junction. No pneumothorax. Assessment and Plan (1) Orthostatic dizziness: Status: Acute (2) Dehydration: Status: Acute (3) Dilated cardiomyopathy: Status: Acute (4) Alcohol use disorder: Status: Acute Plan Assessment: 42-year-old gentleman with recent admission to [facility] with new diagnosis acute systolic heart failure discharged on 01/16/2023 very presented to ER on the same day with complains of dizziness and orthostatic hypertension, initially treated with fluid bolus, then started on pressors Plan: Neuro: No acute issues. Cardiac: underlying chronic systolic congestive heart failure/ dilated cardiomyopathy, likely alcohol related. Now with orthostatic hypotension, likely secondary to over-diuresis. Improved with a fluid bolus and on midodrine. Pulmonary: No acute issues. Renal: No acute issues. Endo: No acute issues. GI: No acute issues. ID: No acute issues Heme/Onc: No acute issues. Psych: No acute issues. Miscellaneous: No acute issues. Prophylaxis: Heparin Diet: regular Critical care time spent: 30 minutes Time Spent With Patient Time: Total time managing care of this patient today ____ minutes.
[2023-01-17 14:18] LABS: MANUAL DIFF FLAG NO
[2023-01-17 14:22] LABS: Basophils Percent Auto 0.3 % (0-2); Eosinophils Absolute Auto 0.1 X10*3/uL (0.0-0.4); Eosinophils Percent Auto 0.8 % (0-4); Hematocrit 44.1 % (42.0-52.0); Hemoglobin 14.6 g/dl (14.0-18.0); Imm Gran Abs Auto 0.04 X10*3/uL (0.00-0.03); Imm Gran Pct Auto 0.4 % (0.0-0.4); Lymphocytes Absolute Auto 2.5 X10*3/uL (1.2-4.9); Lymphocytes Percent Auto 25.6 % (20-40); Mean Corpuscular HGB Conc 33.1 g/dl (31.0-36.0); Mean Corpuscular Hemoglobin 32.2 pg (27.0-33.0); Mean Corpuscular Volume 97.4 fL (80.0-98.0); Mean Platelet Volume 10.6 fL (9.4-12.4); Monocytes Absolute Auto 0.7 X10*3/uL (0.1-1.2); Monocytes Percent Auto 7.2 % (2-11); Neutrophils Absolute Auto 6.4 x10*3/uL (2.0-8.3); Neutrophils Percent Auto 65.7 % (45-73); Platelet Count 259 X10*3/uL (160-400); Red Blood Count 4.53 X10*6/uL (4.60-5.80); Red Cell Distribution Width 14.4 % (11.0-16.0); White Blood Count 9.8 X10*3/uL (4.8-10.8)
[2023-01-17 14:36] LABS: Alanine Aminotransferase 28 U/L (0-40); Albumin Level 3.9 g/dL (3.5-5.0); Alkaline Phosphatase 64 U/L (39-117); Anion Gap 12 (12-20); Aspartate Amino Transferase 16 U/L (5-37); Bilirubin Total 0.8 mg/dL (0.0-1.0); Blood Urea Nitrogen 15 mg/dL (9-16); Calcium 9.3 mg/dL (8.4-10.2); Carbon Dioxide 25 mmol/L (22-29); Chloride 110 mmol/L (96-108); Creatinine Clr Calc Pharmacy 136.4; Estimated Glomerular Filt Rate > 60; Glucose Random 119 mg/dL (60-115); Magnesium 2.2 mg/dL (1.6-2.6); Phosphorus 2.9 mg/dL (2.7-4.5); Sodium 143 mmol/L (135-145); Total Protein 6.3 g/dL (6.5-8.0)
[2023-01-17 14:41] LABS: B Type Natriuretic Peptide 257 pg/mL (<100)
[2023-01-17 14:43] LABS: Troponin-I High Sensitivity 7.1 ng/L (<3.5-35.0)
[2023-01-18 03:02] VITALS: BP 101/71; PULSE 86; RESP 15; TEMP 36.1; O2SAT 96
[2023-01-18 05:58] LABS: MANUAL DIFF FLAG NO
[2023-01-18 06:00] VITALS: BMI 33.3
[2023-01-18 06:03] LABS: Basophils Percent Auto 0.5 % (0-2); Eosinophils Absolute Auto 0.2 X10*3/uL (0.0-0.4); Eosinophils Percent Auto 1.9 % (0-4); Hematocrit 45.2 % (42.0-52.0); Hemoglobin 14.8 g/dl (14.0-18.0); Imm Gran Abs Auto 0.03 X10*3/uL (0.00-0.03); Imm Gran Pct Auto 0.3 % (0.0-0.4); Lymphocytes Absolute Auto 3.2 X10*3/uL (1.2-4.9); Lymphocytes Percent Auto 37.5 % (20-40); Mean Corpuscular HGB Conc 32.7 g/dl (31.0-36.0); Mean Corpuscular Volume 97.6 fL (80.0-98.0); Mean Platelet Volume 10.5 fL (9.4-12.4); Monocytes Absolute Auto 0.6 X10*3/uL (0.1-1.2); Monocytes Percent Auto 6.4 % (2-11); Neutrophils Absolute Auto 4.6 x10*3/uL (2.0-8.3); Neutrophils Percent Auto 53.4 % (45-73); Platelet Count 241 X10*3/uL (160-400); Red Blood Count 4.63 X10*6/uL (4.60-5.80); Red Cell Distribution Width 14.4 % (11.0-16.0); White Blood Count 8.6 X10*3/uL (4.8-10.8)
[2023-01-18 06:17] LABS: Albumin Level 4.1 g/dL (3.5-5.0); Anion Gap 12 (12-20); Blood Urea Nitrogen 15 mg/dL (9-16); Calcium 9.2 mg/dL (8.4-10.2); Carbon Dioxide 21 mmol/L (22-29); Chloride 110 mmol/L (96-108); Creatinine Clr Calc Pharmacy 142.3; Estimated Glomerular Filt Rate > 60; Glucose Random 109 mg/dL (60-115); Magnesium 2.3 mg/dL (1.6-2.6); Phosphorus 2.9 mg/dL (2.7-4.5); Potassium 4.4 mmol/L (3.3-5.1); Sodium 139 mmol/L (135-145)
[2023-01-18 07:00] VITALS: BP 104/82; PULSE 96; RESP 20; TEMP 36; O2SAT 97
[2023-01-18] MEDS: Midodrine HCl 5 MG TABLET PO (08:13)
--- NOTE | 2023-01-18 10:32 | P.PNIM_ITS ---
Subjective Subjective Date of Service: 01/18/23 Interval History: no complaints Physical Exam Vital Signs: Vital Signs: Last Vital Signs Temp 96.8 F 01/18/23 07:00 Pulse 96 01/18/23 07:00 Resp 20 01/18/23 07:00 BP 104/82 01/18/23 07:00 Pulse Ox 97 01/18/23 07:00 O2 Del Method Room Air 01/18/23 07:00 O2 Flow Rate 2 01/17/23 05:07 BMI result Body Mass Index 33.3 General: AO X 3, no acute distress Resp: CTA bilateral, no accessory muscles used CVS: S1,S2,RRR GI: soft, non tender, non distended Neuro: motor grossly intact, alert Psych: appropriate affect, appropriate insight Objective Data Active Medications Heparin Sodium (Porcine) (Heparin Sodium,Porcine 5,000 Unit/Ml Vial) 5,000 unit SUBCUT TID [facility] Last Admin: 01/18/23 08:11 Dose: Not Given Documented By: MADELYN Non-Admin Reason: Patient Refused Pharmacy Consult (Consult Rx Perform Med Rec) 1 each MISCELLANE ONCE PRN PRN Reason: Consult order Labs 01/18/23 05:48 01/18/23 05:48 Labs: Laboratory Results - last 24 hr 01/17/23 01/17/23 01/17/23 13:51 13:51 13:51 MCV 97.4 MCH 32.2 MCHC 33.1 RDW 14.4 Plt Count 259 MPV 10.6 Immature Gran % (Auto) 0.4 Neut % (Auto) 65.7 Lymph % (Auto) 25.6 [place] % (Auto) 7.2 Eos % (Auto) 0.8 Baso % (Auto) 0.3 Lymph # (Auto) 2.5 [place] # (Auto) 0.7 Eos # (Auto) 0.1 Baso # (Auto) 0.0 Abs Immat Gran (auto) 0.04 H Absolute Neuts (auto) 6.4 Absolute Nucleated RBC 0.000 Nucleated RBC % (auto) 0.0 Anion Gap 12 Estim Creat Clear Calc 136.4 Estimated GFR > 60 Random Glucose 119 H Calcium 9.3 Phosphorus 2.9 Magnesium 2.2 Total Bilirubin 0.8 AST 16 ALT 28 Alkaline Phosphatase 64 Troponin I High Sens 7.1 B-Natriuretic Peptide Total Protein 6.3 L Albumin 3.9 01/17/23 01/18/23 01/18/23 13:51 05:48 05:48 MCV 97.6 MCH 32.0 MCHC 32.7 RDW 14.4 Plt Count 241 MPV 10.5 Immature Gran % (Auto) 0.3 Neut % (Auto) 53.4 Lymph % (Auto) 37.5 [place] % (Auto) 6.4 Eos % (Auto) 1.9 Baso % (Auto) 0.5 Lymph # (Auto) 3.2 [place] # (Auto) 0.6 Eos # (Auto) 0.2 Baso # (Auto) 0.0 Abs Immat Gran (auto) 0.03 Absolute Neuts (auto) 4.6 Absolute Nucleated RBC 0.000 Nucleated RBC % (auto) 0.0 Anion Gap 12 Estim Creat Clear Calc 142.3 Estimated GFR > 60 Random Glucose 109 Calcium 9.2 Phosphorus 2.9 Magnesium 2.3 Total Bilirubin AST ALT Alkaline Phosphatase Troponin I High Sens B-Natriuretic Peptide 257 H Total Protein Albumin 4.1 Assessment and Plan (1) Orthostatic dizziness: Status: Acute Plan 42M PMH etoh dependence with cardiomyopathy and obesity, recent discharged after chf exacerbation, presented with dizzyness, hypotension, was admitted to icu for pressor support. now off pressors and downgraded to medtele. etoh cardiomyopathy with hypotension cardio eval, holding neurohormonals for now etoh dependence no withdrawal at this time, abstinence recommended obesity weight loss recommended dvt prophylaxis - hep sq full code reason for continued hospitalization: titrating neurohormonals Time Spent With Patient Time: Total time managing care of this patient today ____ minutes. Quality Stroke Does the patient have a stroke diagnosis?: No VTE Prior VTE?: No VTE Risk Level:: Medical - moderate - high VTE Device Contraindication: Treatment Not Indicated VTE Drug Contraindication: N/A - Med Ordered
--- NOTE | 2023-01-18 11:13 | PM.CNCAR ---
History of Present Illness History of Present Illness Date of Service: 01/18/23 Requesting physician: Alexander Carbone Chief complaint: Hypotension Narrative: 42-year-old gentleman who was diagnosed with dilated cardiomyopathy and was started on guideline directed medical therapy and got discharged yesterday. At home he developed dizziness and lightheadedness and came back with hypotension. It appears he was hypotensive and required fluid boluses followed by transient vasopressors. He has a central line placed which has been removed. He was put on midodrine and was downgraded to the [facility]. Is denying any symptoms right now. Walking around without dizziness. He said he slept flat at home for the 1st time in the last few weeks. No other issues right now. All his medications have been held. [facility] Past Medical History Medical History No pertinent past medical history Family History Family History Mother CHF (congestive heart failure) CAD (coronary artery disease) Surgical History Surgical History H/O thumb surgery Social History Social History Household Members: Family Housing: Apartment Do you presently have visiting nurse or other home services: No Alcohol intake: former Patient Tobacco Use Status: Former Tobacco user Tobacco use type: Cigarette Second Hand Smoke Exposure: No Substance Use Type: Marijuana service: No Current occupational status: employed Meds Allergies Allergy/AdvReac Type Severity Reaction Status Date / Time No Known Allergies Allergy Verified 01/13/23 21:43 [No Known Allergies*] Active Medications: Current Medications Heparin Sodium (Porcine) (Heparin Sodium,Porcine 5,000 Unit/Ml Vial) 5,000 unit SUBCUT TID [facility] Last Admin: 01/18/23 08:11 Dose: Not Given Pharmacy Consult (Consult Rx Perform Med Rec) 1 each MISCELLANE ONCE PRN PRN Reason: Consult order Physical Exam Vital Signs: Vital Signs: Last Vital Signs Temp 96.8 F 01/18/23 07:00 Pulse 96 01/18/23 07:00 Resp 20 01/18/23 07:00 BP 104/82 01/18/23 07:00 Pulse Ox 97 01/18/23 07:00 O2 Del Method Room Air 01/18/23 07:00 O2 Flow Rate 2 01/17/23 05:07 BMI result Body Mass Index 33.3 GENERAL APPEARANCE: in no acute distress, pleasant. NECK: no carotid bruit, no significant jugular venous distention. SKIN: no suspicious lesions, warm and dry. HEART: no murmurs, regular rate and rhythm. LUNGS: clear to auscultation bilaterally. ABDOMEN: soft, nontender. EXTREMITIES: No edema. PERIPHERAL PULSES: equal. NEUROLOGIC: No gross deficits, AAO X 3 Objective Labs and Meds 01/18/23 05:48 01/18/23 05:48 Lab results: Laboratory Results - last 24 hr 01/17/23 01/17/23 01/17/23 13:51 13:51 13:51 WBC 9.8 RBC 4.53 L Hgb 14.6 Hct 44.1 MCV 97.4 MCH 32.2 MCHC 33.1 RDW 14.4 Plt Count 259 MPV 10.6 Immature Gran % (Auto) 0.4 Neut % (Auto) 65.7 Lymph % (Auto) 25.6 [place] % (Auto) 7.2 Eos % (Auto) 0.8 Baso % (Auto) 0.3 Lymph # (Auto) 2.5 [place] # (Auto) 0.7 Eos # (Auto) 0.1 Baso # (Auto) 0.0 Abs Immat Gran (auto) 0.04 H Absolute Neuts (auto) 6.4 Absolute Nucleated RBC 0.000 Nucleated RBC % (auto) 0.0 Sodium 143 Potassium 4.0 Chloride 110 H Carbon Dioxide 25 Anion Gap 12 BUN 15 Creatinine 0.92 Estim Creat Clear Calc 136.4 Estimated GFR > 60 Random Glucose 119 H Calcium 9.3 Phosphorus 2.9 Magnesium 2.2 Total Bilirubin 0.8 AST 16 ALT 28 Alkaline Phosphatase 64 Troponin I High Sens 7.1 B-Natriuretic Peptide Total Protein 6.3 L Albumin 3.9 01/17/23 01/18/23 01/18/23 13:51 05:48 05:48 WBC 8.6 RBC 4.63 Hgb 14.8 Hct 45.2 MCV 97.6 MCH 32.0 MCHC 32.7 RDW 14.4 Plt Count 241 MPV 10.5 Immature Gran % (Auto) 0.3 Neut % (Auto) 53.4 Lymph % (Auto) 37.5 [place] % (Auto) 6.4 Eos % (Auto) 1.9 Baso % (Auto) 0.5 Lymph # (Auto) 3.2 [place] # (Auto) 0.6 Eos # (Auto) 0.2 Baso # (Auto) 0.0 Abs Immat Gran (auto) 0.03 Absolute Neuts (auto) 4.6 Absolute Nucleated RBC 0.000 Nucleated RBC % (auto) 0.0 Sodium 139 Potassium 4.4 Chloride 110 H Carbon Dioxide 21 L Anion Gap 12 BUN 15 Creatinine 0.88 Estim Creat Clear Calc 142.3 Estimated GFR > 60 Random Glucose 109 Calcium 9.2 Phosphorus 2.9 Magnesium 2.3 Total Bilirubin AST ALT Alkaline Phosphatase Troponin I High Sens B-Natriuretic Peptide 257 H Total Protein Albumin 4.1 Assessment and Plan (1) Orthostatic dizziness: Status: Acute (2) Dilated cardiomyopathy: Status: Acute Plan 42-year-old gentleman who is presenting for hypotension after being discharged earlier the same day. He was diagnosed with dilated cardiomyopathy probably due to alcohol use. Was started on guideline directed medical therapy. He was tolerating the medications fine but it appears at home he became dizzy and lightheaded and came with hypotension. Clinically he appears to be euvolemic. No further IV fluids should be given. Stop the midodrine. We will monitor his blood pressure today. If his blood pressure stays stable then I think we can start him on Entresto tomorrow morning. I will probably give him Entresto and Jardiance 1st. I think the diuretics should be held. Spironolactone and bisoprolol should not be restarted. We will follow along with you. Thank you for allowing me to participate in the care of your patient. Please feel free to contact me if you have any questions. Time Spent With Patient Time: Total time managing care of this patient today ____ minutes. Procedures Date of Service Date of Service: 01/18/23
[2023-01-18 11:14] VITALS: BP 106/74; PULSE 89; RESP 20; TEMP 36.3; O2SAT 94
[2023-01-18 15:01] VITALS: BP 106/74; PULSE 88; RESP 20; TEMP 36.1; O2SAT 96
[2023-01-18 19:03] VITALS: BP 114/73; PULSE 88; RESP 20; TEMP 36.2; O2SAT 96
[2023-01-18] MEDS: Melatonin 3 MG TABLET 6 MG PO (21:23)
[2023-01-19] VITALS: BP 107/73; PULSE 90; RESP 20; TEMP 36.1; O2SAT 96
[2023-01-19 03:39] VITALS: BP 119/79; PULSE 93; RESP 20; TEMP 36.5; O2SAT 99
[2023-01-19 05:13] VITALS: BMI 32.6
[2023-01-19 07:03] LABS: Hematocrit 44.2 % (42.0-52.0); Hemoglobin 14.4 g/dl (14.0-18.0); Mean Corpuscular HGB Conc 32.6 g/dl (31.0-36.0); Mean Corpuscular Hemoglobin 31.4 pg (27.0-33.0); Mean Corpuscular Volume 96.5 fL (80.0-98.0); Mean Platelet Volume 10.9 fL (9.4-12.4); Platelet Count 216 X10*3/uL (160-400); Red Blood Count 4.58 X10*6/uL (4.60-5.80); Red Cell Distribution Width 14.1 % (11.0-16.0); White Blood Count 8.3 X10*3/uL (4.8-10.8)
[2023-01-19 07:08] VITALS: BP 117/80; PULSE 89; RESP 20; TEMP 36.1; O2SAT 95
[2023-01-19 07:32] LABS: Anion Gap 12 (12-20); Blood Urea Nitrogen 17 mg/dL (9-16); Calcium 9.2 mg/dL (8.4-10.2); Carbon Dioxide 22 mmol/L (22-29); Chloride 110 mmol/L (96-108); Estimated Glomerular Filt Rate > 60; Glucose Fasting 105 mg/dL (60-99); Potassium 4.2 mmol/L (3.3-5.1); Sodium 140 mmol/L (135-145)
[2023-01-19] MEDS: Sacubitril/Valsartan 24/26 1 TAB TABLET PO (08:40)
[2023-01-19] MEDS: Empagliflozin 10 MG TABLET PO (08:40)
--- NOTE | 2023-01-19 08:55 | P.PNIM_ITS ---
Subjective Subjective Date of Service: 01/19/23 Interval History: no complaints Physical Exam Vital Signs: Vital Signs: Last Vital Signs Temp 96.9 F 01/19/23 07:08 Pulse 89 01/19/23 07:08 Resp 20 01/19/23 07:08 BP 117/80 01/19/23 07:08 Pulse Ox 95 01/19/23 07:08 O2 Del Method Room Air 01/19/23 07:08 O2 Flow Rate 2 01/17/23 05:07 BMI result Body Mass Index 32.6 General: AO X 3, no acute distress Resp: CTA bilateral, no accessory muscles used CVS: S1,S2,RRR GI: soft, non tender, non distended Neuro: motor grossly intact, alert Psych: appropriate affect, appropriate insight Objective Data Active Medications Empagliflozin (Empagliflozin 10 Mg Tablet) 10 mg PO DAILY [facility] Last Admin: 01/19/23 08:40 Dose: 10 mg Documented By: BONNY Heparin Sodium (Porcine) (Heparin Sodium,Porcine 5,000 Unit/Ml Vial) 5,000 unit SUBCUT TID [facility] Last Admin: 01/19/23 08:40 Dose: Not Given Documented By: BONNY Non-Admin Reason: Patient Refused Melatonin (Melatonin 3 Mg Tablet) 6 mg PO BEDTIME PRN PRN Reason: Insomnia Last Admin: 01/18/23 21:23 Dose: 6 mg Documented By: ESTEBAN Pharmacy Consult (Consult Rx Perform Med Rec) 1 each MISCELLANE ONCE PRN PRN Reason: Consult order Sacubitril/Valsartan (Sacubitril/Valsartan 1 Tab Tablet) 1 tab PO BID [facility]; Protocol Last Admin: 01/19/23 08:40 Dose: 1 tab Documented By: BONNY Labs 01/19/23 06:33 01/19/23 06:33 Labs: Laboratory Results - last 24 hr 01/19/23 01/19/23 06:33 06:33 MCV 96.5 MCH 31.4 MCHC 32.6 RDW 14.1 Plt Count 216 MPV 10.9 Absolute Nucleated RBC 0.000 Nucleated RBC % (auto) 0.0 Anion Gap 12 Estim Creat Clear Calc 141.0 Estimated GFR > 60 Fasting Glucose 105 H Calcium 9.2 Assessment and Plan (1) Orthostatic dizziness: Status: Acute Plan 42M PMH etoh dependence with cardiomyopathy and obesity, recent discharged after chf exacerbation, presented with dizzyness, hypotension, was admitted to icu for pressor support. now off pressors and downgraded to medtele. etoh cardiomyopathy with hypotension cardio appreciated will challenge with low dose entresto and jardiance, holding beta irasema continue to monitor etoh dependence no withdrawal at this time, abstinence recommended obesity weight loss recommended dvt prophylaxis - hep sq full code reason for continued hospitalization: titrating neurohormonals Time Spent With Patient Time: Total time managing care of this patient today ____ minutes. Quality Stroke Does the patient have a stroke diagnosis?: No VTE Prior VTE?: No VTE Risk Level:: Medical - moderate - high VTE Device Contraindication: Treatment Not Indicated VTE Drug Contraindication: N/A - Med Ordered
--- NOTE | 2023-01-19 11:13 | PM.PNCARD ---
Subjective Subjective Date of Service: 01/19/23 Interval history: Seen and examined at bedside, Doing well. Physical Exam Vital Signs: Last Vital Signs Temp 96.9 F 01/19/23 07:08 Pulse 89 01/19/23 07:08 Resp 20 01/19/23 07:08 BP 117/80 01/19/23 07:08 Pulse Ox 95 01/19/23 07:08 O2 Del Method Room Air 01/19/23 07:08 O2 Flow Rate 2 01/17/23 05:07 BMI result Body Mass Index 32.6 GENERAL APPEARANCE: in no acute distress, pleasant. NECK: no carotid bruit, no significant jugular venous distention. SKIN: no suspicious lesions, warm and dry. HEART: no murmurs, regular rate and rhythm. LUNGS: clear to auscultation bilaterally. ABDOMEN: soft, nontender. EXTREMITIES: No edema. PERIPHERAL PULSES: equal. NEUROLOGIC: No gross deficits, AAO X 3 Objective Labs and Meds 01/19/23 06:33 01/19/23 06:33 Lab results: Laboratory Results - last 24 hr 01/19/23 01/19/23 06:33 06:33 WBC 8.3 RBC 4.58 L Hgb 14.4 Hct 44.2 MCV 96.5 MCH 31.4 MCHC 32.6 RDW 14.1 Plt Count 216 MPV 10.9 Absolute Nucleated RBC 0.000 Nucleated RBC % (auto) 0.0 Sodium 140 Potassium 4.2 Chloride 110 H Carbon Dioxide 22 Anion Gap 12 BUN 17 H Creatinine 0.88 Estim Creat Clear Calc 141.0 Estimated GFR > 60 Fasting Glucose 105 H Calcium 9.2 Progress Note: A&P Assessment and plan (1) Orthostatic dizziness: Status: Acute (2) Dilated cardiomyopathy: Status: Acute Plan 42 male with new diagnosis of dilated CMP. He was admitted for hypotension due to meds. All meds were held. We are resuming Jardiance and entresto. If he tolerates this then can be discharged home. Will add further meds as outpatient. Time Spent With Patient Time: Total time managing care of this patient today ____ minutes. Progress Note: Quality Stroke Does the patient have a stroke diagnosis?: No Procedures Date of Service Date of Service: 01/19/23
[2023-01-19 11:24] VITALS: BP 118/79; PULSE 95; RESP 20; TEMP 36.4; O2SAT 98
[2023-01-19 15:08] VITALS: BP 112/77; PULSE 90; RESP 20; TEMP 36.7; O2SAT 96
--- NOTE | 2023-01-19 17:29 | PC.NURSE ---
Pt A&Ox4. Continues with mild shortness of breath while laying in bed, denies chest pain. NSR on tele. Denies dizziness with movement or ambulation steady gait. Meds restarted this am per order, SBP remains in one teens systolic. Denies pain discomfort. Resting in bed throughout shift. Will contiue to monitor and report changes
[2023-01-19 19:00] VITALS: BP 107/76; PULSE 55; RESP 20; TEMP 36.2; O2SAT 93
[2023-01-20] VITALS: BP 136/72; PULSE 97; RESP 18; TEMP 36.7; O2SAT 96
[2023-01-20 04:00] VITALS: BP 120/82; PULSE 96; RESP 18; TEMP 36.6; O2SAT 94
[2023-01-20 05:35] VITALS: BMI 32.4
[2023-01-20 07:57] VITALS: BP 119/80; PULSE 90; RESP 20; TEMP 36.4; O2SAT 97
--- NOTE | 2023-01-20 08:12 | PM.DS ---
DS: Providers Provider Date of Service: 01/20/23 Date of admission: 01/17/23 06:06 Primary care physician: Lino Stone MD Consults: 01/17/23 15:27 Consult to Cardiology Routine Consulting Provider: 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 Patient has been given some IV fluids and started on vasopressor support and admitted to the intensive care unit.? In the intensive care unit patient was transition to midodrine from Levophed. hospital course: pateint was admitted to ICU for hypotension in alcohol cardiomyopathy requiring pressor support and iv hydration. he was quickly weaned off pressors. beta irasema was held, was titrated back onto low dose entresto and jardiance and appears to be tolerating welll. he will follow up with cardiology as outpatient for further titration. for etoh dependence, complete absitenence recommended. for obesity weight loss recommended. Time Spent with Patient Time attestation: Total time managing care of this patient today ____ minutes. Discharge coordination time: Greater than 30 minutes Quality: Safe Use of Opioids Does Pt have an Active Cancer Diagnosis on the Problem List?: No Quality: Stroke Does the patient have a stroke diagnosis?: No Physical Exam Vital Signs: Vital Signs: Last Vital Signs Temp 97.6 F 01/20/23 07:57 Pulse 90 01/20/23 07:57 Resp 20 01/20/23 07:57 BP 119/80 01/20/23 07:57 Pulse Ox 97 01/20/23 07:57 O2 Del Method Room Air 01/20/23 07:57 O2 Flow Rate 2 01/17/23 05:07 BMI result Body Mass Index 32.4 General: AO X 3, no acute distress Resp: CTA bilateral, no accessory muscles used CVS: S1,S2,RRR GI: soft, non tender, non distended Neuro: motor grossly intact, alert Psych: appropriate affect, appropriate insight Discharge Plan Discharge Anticipated Discharge Date/Time: 01/20/23 08:10 Patient Disposition: Home, Self-Care Discharge Diagnosis: hypotensions Referrals: Lino Stone MD [Primary Care Provider] - 1 Week Discharge Medications: Continued Entresto 24-26 mg Tablet 1 tab PO BID Qty: 60 0RF Protocol: Hold for SBP< HOLD for SBP < : 90 Jardiance 10 mg Tablet 10 mg PO DAILY Qty: 30 0RF multivitamin [Daily-Sara] Tablet 1 tab PO DAILY Qty: 30 0RF Discontinued bisoprolol fumarate 5 mg Tablet 1.25 mg PO DAILY Qty: 30 0RF spironolactone 25 mg Tablet 25 mg PO DAILY Qty: 30 0RF Protocol: Hold for SBP< HOLD for SBP < : 90 Discharge Orders: Discharge Order (Routine); Ordered 01/20/23 Ordered By: Alexander Carbone Diet: Advance to usual diet Activity on Discharge: As tolerated Stand Alone Forms: Patient Portal Discharge page Care Plan Goals: recovery Health Concerns: etoh cardiomyopathy Plan of Treatment: avoid all etoh, meds as prescribed, follow up with cardiology Assessment: see above
--- NOTE | 2023-01-20 08:53 | MHC.CM.PN ---
PT WILL DC HOME TODAY WITH NO SERVICES
[2023-01-20] MEDS: Sacubitril/Valsartan 24/26 1 TAB TABLET PO (08:59)
[2023-01-20] MEDS: Empagliflozin 10 MG TABLET PO (08:59)
== END 2023-01-20 10:17 | disposition home or self-care (01) | DRG 204 ==
LOC: HO.ED 01-17 06:07 → HO.EDOVER 01-17 06:09 → HO.ICU 01-17 08:00 → HO.IMC 01-17 14:45
PROVIDERS: Internal Medicine Pulmonary Disease; Physician Assistant; Admitting Provider Registered Nurse Community Health; Emergency Provider Emergency Medicine; PCP Internal Medicine; Visit Provider Internal Medicine
DX: I95.1 Orthostatic hypotension (principal); I50.23 Acute on chronic systolic (congestive) heart failure; I42.0 Dilated cardiomyopathy; I42.6 Alcoholic cardiomyopathy; E66.9 Obesity, unspecified; F10.20 Alcohol dependence, uncomplicated; E86.0 Dehydration; Z68.32 Body mass index [BMI] 32.0-32.9, adult; Z87.891 Personal history of nicotine dependence; Z79.899 Other long term (current) drug therapy
CPT/HCPCS: 36415; 71045; 80048; 80053; 82040; 83735; 83880; 84100; 84484; 85025; 85027; 93005; 99285; P9047

== ENCOUNTER 2023-02-01 21:40 | Inpatient (IN) | payer OTHER, SELFPAY ==
--- NOTE | ~2023-02-01 | CT_ITS ---
EXAMINATION: CT HEAD WITHOUT CONTRAST (STROKE PROTOCOL) CLINICAL INFORMATION: Stroke symptoms. COMPARISON: None available. TECHNIQUE: Contiguous axial imaging was performed from the skull base to vertex without intravenous administration of contrast. This CT examination was performed using dose optimization techniques as appropriate, variously including the following: *Automated exposure control *Adjustment of mA and/or kV according to patient size (this includes techniques or standardized protocols for targeted exams where dose is matched to indication/reason for exam; i.e. extremities or head) *Use of iterative reconstruction technique DLP: 657 mGy-cm FINDINGS: No acute intracranial hemorrhage. No mass effect or midline shift. No parenchymal lesion. The mcmillan-white differentiation is maintained. No extra-axial fluid collection. The ventricles and sulci are unremarkable. The basal cisterns are patent. The calvarium is intact. The visualized paranasal sinuses and mastoid air cells are clear. CT/CT head for stroke IMPRESSION: No acute intracranial hemorrhage or mass effect. This critical result was discussed with Dr. Church at 9:29 AM hours on 02/02/2023. It was ascertained that the content and urgency of the report was understood at the time of direct communication.
--- NOTE | ~2023-02-01 | XR_ITS ---
EXAMINATION: XR CHEST CLINICAL INFORMATION: Weakness COMPARISON: Chest x-rays of 01/17/2023 and 01/13/2023 TECHNIQUE: Chest 1 views; portable AP upright view of the chest was obtained. FINDINGS: Cardiomediastinal silhouette is stable with cardiomegaly. No abnormal tracheal deviation. The lungs are symmetrically well expanded. No focal consolidation, changes of congestion or pleural effusions are seen. No pneumothorax. Visualized upper abdomen is unremarkable. Interval removal of right IJ approach catheter. XR/XR chest 1V IMPRESSION: No radiographic evidence of pneumonia. No acute pulmonary process. Cardiomegaly.
--- NOTE | ~2023-02-01 | CT_ITS ---
EXAMINATION: CT ANGIOGRAM HEAD CT ANGIOGRAM NECK CLINICAL INFORMATION: Stroke. Right-sided weakness. COMPARISON: CT head from 02/02/2023. TECHNIQUE: Initial noncontrast fashion stylist imaging of the head and neck was performed. Comparison is made with noncontrast head CT from earlier today. Test bolus sequences followed by intravenous administration 140 mL of Omnipaque 350. Helical imaging was performed in the axial plane from the aortic arch to the skull vertex. Delayed postcontrast imaging of the head was also performed. The data was processed at the radiology ct technologist's workstation for generation of MIP sequences. Angled MIPs and volume rendered reformatted images were also generated at an offline 3D workstation. Stenoses are assessed in accordance with NASCET criteria unless otherwise indicated. This CT examination was performed using dose optimization techniques as appropriate, variously including the following: *Automated exposure control. *Adjustment of mA and/or kV according to patient size (this includes techniques or standardized protocols for targeted exams where dose is matched to indication/reason for exam; i.e. extremities or head). *Use of iterative reconstruction technique. DLP: 2378 mGy-cm FINDINGS: CT Head: There is no evidence of acute intracranial hemorrhage or edematous territorial infarction. There is no abnormal attenuation within the brain parenchyma. Guevara-white matter differentiation is preserved. The ventricles are normal in size and configuration. No evidence for obstructive hydrocephalus. No abnormal mass effect or midline shift. No extra-axial fluid collections. No pathologic intra-axial enhancement or regional oligemia. No acute soft tissue or osseous abnormalities. Moderate mucosal thickening of the paranasal sinuses. The mastoid air cells and middle ear cavities are clear. CT Neck: The thyroid gland and remaining cervical soft tissues are within normal limits. Moderate degenerative disc disease from C5-T1. Facet and uncovertebral joint arthropathy leads to osseous encroachment on the neural foramina at C5-C6. CT Upper Chest: The visualized lung apices and upper mediastinum are within normal limits. Neck CTA: Aortic Arch: Normal contour and caliber. Two vessel branching pattern of the arch with left common carotid artery arising from the brachiocephalic trunk. Great Vessel Origins: No significant stenosis of the branch origins. Right Common Carotid Artery: No focal stenosis or occlusion. Cervical Right Internal Carotid Artery: Normal opacification without focal stenosis or occlusion. Left Common Carotid Artery: No focal stenosis or occlusion. Cervical Left Internal Carotid Artery: Normal opacification without focal stenosis or occlusion. Cervical Right Vertebral Artery: No focal stenosis or occlusion. Cervical Left Vertebral Artery: Dominant. No focal stenosis or occlusion. Brain CTA: Intracranial Internal Carotid Arteries: No focal stenosis or occlusion. Right Anterior Cerebral Artery: Normal A1 segment. Normal opacification of the distal FLAVIA segments. Left Anterior Cerebral Artery: Normal A1 segment. Normal opacification of the distal FLAVIA segments. Anterior Communicating Artery: Normal. Right Middle Cerebral Artery: Normal M1 segment of the MCA without focal stenosis or occlusion. Normal arborization of the distal segments. Left Middle Cerebral Artery: Normal M1 segment of the MCA without focal stenosis or occlusion. There is occlusion of a distal M2 branch in the posterior aspect of the sylvian fissure. Right Vertebral Artery: The V4 segment largely terminates as the posterior inferior cerebellar artery. Left Vertebral Artery: Normal V4 segment. Normal opacification of the proximal segments of the posterior inferior cerebellar artery. Basilar Artery: The basilar artery is mildly hypoplastic in the setting of origins of the bilateral consulting nurse. Normal appearance of the proximal superior cerebellar arteries. Right Posterior Cerebral Artery: The P1 segment is diminutive. origin of the PATIENT CONSUMER MARKETER with robust opacification of the posterior communicating artery. Normal opacification of the distal PATIENT CONSUMER MARKETER segments. Left Posterior Cerebral Artery: The P1 segment is diminutive. origin of the PATIENT CONSUMER MARKETER with robust opacification of the posterior communicating artery. Normal opacification of the distal PATIENT CONSUMER MARKETER segments. Normal opacification of the superior sagittal, straight, transverse, and sigmoid sinuses. CT/CT angio head neck IMPRESSION: 1. No evidence of acute intracranial hemorrhage. 2. There is an occlusion of a distal M2 branch of the left MCA in the posterior aspect of the sylvian fissure. No overt loss of guevara-white matter differentiation demonstrated at this time. 3. CTA of the head and neck without additional proximal occlusion or flow-limiting stenosis.
[2023-02-01 21:50] VITALS: BP 113/72; PULSE 153; RESP 18; TEMP 36.8; O2SAT 98; BMI 32.5
--- NOTE | 2023-02-01 21:53 | ECG_ITS ---
Test Reason : dizziness Blood Pressure : / mmHG Vent. Rate : 157 BPM Atrial Rate : 314 BPM P-R Int : 000 ms QRS Dur : 114 ms QT Int : 244 ms P-R-T Axes : 104 -65 044 degrees QTc Int : 394 ms Atrial flutter with 2:1 A-V conduction Left axis deviation Anterior infarct (cited on or before 16-JAN-2023) Abnormal ECG When compared with ECG of 16-JAN-2023 23:21, Significant changes have occurred Referred By: Generic ED Physician Electronically Signed By:SHAHNAZ LEMONS
[2023-02-01 21:56] LABS: Glucose, Whole Blood 129 mg/dL (60-115)
[2023-02-01 22:26] LABS: Basophils Percent Auto 0.3 % (0-2); Eosinophils Absolute Auto 0.1 X10*3/uL (0.0-0.4); Eosinophils Percent Auto 0.6 % (0-4); Hemoglobin 16.6 g/dl (14.0-18.0); Imm Gran Abs Auto 0.03 X10*3/uL (0.00-0.03); Imm Gran Pct Auto 0.3 % (0.0-0.4); Lymphocytes Absolute Auto 3.1 X10*3/uL (1.2-4.9); Lymphocytes Percent Auto 27.6 % (20-40); MANUAL DIFF FLAG NO; Mean Corpuscular HGB Conc 33.9 g/dl (31.0-36.0); Mean Corpuscular Hemoglobin 31.1 pg (27.0-33.0); Mean Corpuscular Volume 91.8 fL (80.0-98.0); Mean Platelet Volume 10.1 fL (9.4-12.4); Monocytes Absolute Auto 0.8 X10*3/uL (0.1-1.2); Monocytes Percent Auto 6.9 % (2-11); Neutrophils Absolute Auto 7.1 x10*3/uL (2.0-8.3); Neutrophils Percent Auto 64.3 % (45-73); Platelet Count 307 X10*3/uL (160-400); Red Blood Count 5.34 X10*6/uL (4.60-5.80); Red Cell Distribution Width 13.4 % (11.0-16.0); White Blood Count 11.1 X10*3/uL (4.8-10.8)
--- NOTE | 2023-02-01 22:27 | ED.WEAKNESS ---
HPI - Weakness General Chief complaint: Weakness Stated complaint: Dizziness Time Seen by Provider: 02/01/23 22:07 History of Present Illness HPI Narrative: Patient is a 42-year-old male with a history of cardiomyopathy. Have ejection fraction of 15-20%. History of alcohol abuse. Presented today with sudden onset of palpitation. Patient symptoms started proximally an hour and a half prior to arrival. There is no chest pain. There is no diaphoresis. There is positive generalized malaise. Patient is from home. Related Data Previous Rx's Medication Instructions Recorded empagliflozin 10 mg tablet 10 mg PO DAILY #30 tabs 01/16/23 (Jardiance) multivitamin (Daily-Sara tablet) 1 tab PO DAILY #30 tabs 01/16/23 sacubitril 24 mg-valsartan 26 mg 1 tab PO BID #60 tabs 01/16/23 tablet (Entresto) Allergies Allergy/AdvReac Type Severity Reaction Status Date / Time No Known Allergies Allergy Verified 01/13/23 21:43 [No Known Allergies*] Review of Systems Review of Systems: Positive palpitations positive shortness of breath Yes all other systems are reviewed and are negative [facility] Past Medical History Attestation statement: The following information was validated with the patient. Medical History Alcohol use disorder CHF (congestive heart failure) No pertinent past medical history Surgical History H/O thumb surgery Family History Family History Mother CHF (congestive heart failure) CAD (coronary artery disease) Social History Social History Household Members: Family Housing: Apartment Do you presently have visiting nurse or other home services: No Alcohol intake: former Patient Tobacco Use Status: Former Tobacco user Tobacco use type: Cigarette Smoked in Last 30 Days: No Second Hand Smoke Exposure: No Use of substances other than those prescribed or required for medical reasons: No Substance Use Type: Marijuana Advance Directives: No Advance Directives Information Provided: Yes Nutrition Risks: No Nutritional Risk service: No Current occupational status: employed Physical Exam Vital Signs: Vital Signs: Last Vital Signs Temp 98.4 F 02/01/23 23:43 Pulse 115 H 02/02/23 00:42 Resp 14 02/02/23 00:42 BP 94/61 02/02/23 00:42 Pulse Ox 93 02/02/23 00:42 O2 Del Method Room Air 02/02/23 00:42 BMI result Body Mass Index 32.5 Appearance: Alert. Oriented X3. No acute distress. Eyes: Pupils equal, round and reactive to light. ENT: Pharynx normal. Neck: Normal inspection. Neck supple. No lymph nodes noted. No crepitus CVS: Tachycardic but regular Respiratory: No respiratory distress. Breath sounds normal. No Wheezing. No rales Abdomen: Soft and nontender. No rigidity. No distention. good BS x4 Skin: Skin warm and dry. Normal skin color. Normal skin turgor. Extremities: No lower extremity edema. Neurovascular intact to all extremities. No Lacerations. No Rash Neuro: Oriented X 3. No motor deficit. No sensory deficit. Moving all extermities. No slurred speech Medications Administered Generic Name Dose Route Start Last Admin Trade Name Freq PRN Reason Stop Dose Admin Enoxaparin Sodium 40 mg 02/02/23 00:30 02/02/23 02:19 Enoxaparin Sodium 40 Mg/0.4 Ml Syringe SUBCUT Not Given Q24H MICK Sodium Chloride 3 ml 02/02/23 00:00 02/02/23 02:18 0.9 % Sodium Chloride Flush 3 Ml Syringe IVFLUSH 3 ml QSHIFT MICK Administration Discontinued Medications Generic Name Dose Route Start Last Admin Trade Name Freq PRN Reason Stop Dose Admin Diltiazem HCl 30 mg 02/01/23 23:07 02/02/23 02:17 Diltiazem Hcl 30 Mg Tablet PO 02/01/23 23:08 Not Given ONCE ONE Protocol Sodium Chloride 500 mls @ 999 mls/hr 02/01/23 22:30 02/01/23 23:56 Ns IV 02/01/23 23:00 Infused .Q31M MICK Infusion Sodium Chloride 500 mls @ 999 mls/hr 02/02/23 00:15 02/02/23 00:56 Ns IV 02/02/23 00:45 Infused .Q31M MICK Infusion Metoprolol Tartrate 5 mg 02/01/23 22:24 02/01/23 22:46 Metoprolol Tartrate 5 Mg/5 Ml Vial IVPUSH 02/01/23 22:25 5 mg ONCE ONE Administration Medical Decision Making Medical Decision Making [facility] Narrative: Positive palpitation patient is EKG by my interpretation shows an atrial flutter pattern heart rate was 160 with a 2-1 block. Has a history of alcohol abuse. Denies any acute use of alcohol. Patient claims she stop for proximally 3 weeks. Has a history of low EF likely secondary to cardiomyopathy caused by alcohol. Patient is ejection fractions proximally 15%. We will go and give a very small dose of metoprolol. Will monitor very carefully. Differential Diagnosis Differential Diagnoses: The differential diagnosis associated with the presentation includes New onset a flutter. Will check cardiac enzymes for possibility of ACS. Will also check patient's thyroid. Will check patient's alcohol level. Admission/Observation Consideration of admission/observation: Escalation of care including admission/observation considered Consult Healthcare Provider Management of the patient was discussed with: Hospitalist Lab Data [facility] Lab Attestation statement: I reviewed the patient's lab results. 02/01/23 22:20 02/01/23 22:20 Labs: Lab Results 02/01/23 02/01/23 02/01/23 Range/Units 21:52 22:20 22:20 WBC 11.1 H (4.8-10.8) X10*3/uL RBC 5.34 (4.60-5.80) X10*6/uL Hgb 16.6 (14.0-18.0) g/dl Hct 49.0 (42.0-52.0) % MCV 91.8 (80.0-98.0) fL MCH 31.1 (27.0-33.0) pg MCHC 33.9 (31.0-36.0) g/dl RDW 13.4 (11.0-16.0) % Plt Count 307 D (160-400) X10*3/uL MPV 10.1 (9.4-12.4) fL Immature Gran % (Auto) 0.3 (0.0-0.4) % Neut % (Auto) 64.3 (45-73) % Lymph % (Auto) 27.6 (20-40) % [place] % (Auto) 6.9 (2-11) % Eos % (Auto) 0.6 (0-4) % Baso % (Auto) 0.3 (0-2) % Lymph # (Auto) 3.1 (1.2-4.9) X10*3/uL [place] # (Auto) 0.8 (0.1-1.2) X10*3/uL Eos # (Auto) 0.1 (0.0-0.4) X10*3/uL Baso # (Auto) 0.0 (0.0-0.2) X10*3/uL Abs Immat Gran (auto) 0.03 (0.00-0.03) X10*3/uL Absolute Neuts (auto) 7.1 (2.0-8.3) x10*3/uL Absolute Nucleated RBC 0.000 (0.0-0.012) X10*3/uL Nucleated RBC % (auto) 0.0 (0.0-0.2) /100WBC Sodium (135-145) mmol/L Potassium (3.3-5.1) mmol/L Chloride (96-108) mmol/L Carbon Dioxide (22-29) mmol/L Anion Gap (12-20) BUN (9-16) mg/dL Creatinine (0.5-1.4) mg/dL Estim Creat Clear Calc Estimated GFR POC Glucose 129 H (60-115) mg/dL Random Glucose (60-115) mg/dL Calcium (8.4-10.2) mg/dL Total Creatine Kinase (38-174) U/L Troponin I High Sens 6.8 (<3.5-35.0) ng/L TSH (0.32-4.0) uIU/mL Ethyl Alcohol mg/dL 02/01/23 02/01/23 Range/Units 22:54 23:40 WBC (4.8-10.8) X10*3/uL RBC (4.60-5.80) X10*6/uL Hgb (14.0-18.0) g/dl Hct (42.0-52.0) % MCV (80.0-98.0) fL MCH (27.0-33.0) pg MCHC (31.0-36.0) g/dl RDW (11.0-16.0) % Plt Count (160-400) X10*3/uL MPV (9.4-12.4) fL Immature Gran % (Auto) (0.0-0.4) % Neut % (Auto) (45-73) % Lymph % (Auto) (20-40) % [place] % (Auto) (2-11) % Eos % (Auto) (0-4) % Baso % (Auto) (0-2) % Lymph # (Auto) (1.2-4.9) X10*3/uL [place] # (Auto) (0.1-1.2) X10*3/uL Eos # (Auto) (0.0-0.4) X10*3/uL Baso # (Auto) (0.0-0.2) X10*3/uL Abs Immat Gran (auto) (0.00-0.03) X10*3/uL Absolute Neuts (auto) (2.0-8.3) x10*3/uL Absolute Nucleated RBC (0.0-0.012) X10*3/uL Nucleated RBC % (auto) (0.0-0.2) /100WBC Sodium 140 (135-145) mmol/L Potassium 3.9 (3.3-5.1) mmol/L Chloride 109 H (96-108) mmol/L Carbon Dioxide 21 L (22-29) mmol/L Anion Gap 14 (12-20) BUN 13 (9-16) mg/dL Creatinine 1.03 (0.5-1.4) mg/dL Estim Creat Clear Calc 120.2 Estimated GFR > 60 POC Glucose 144 H (60-115) mg/dL Random Glucose 120 H (60-115) mg/dL Calcium 9.5 (8.4-10.2) mg/dL Total Creatine Kinase 95 (38-174) U/L Troponin I High Sens (<3.5-35.0) ng/L TSH 1.54 (0.32-4.0) uIU/mL Ethyl Alcohol < 10 mg/dL Critical Care Time Critical Care Time Critical Care Time: Yes Total Critical Care Time: 40 Attestation: I have personally provided 40 minutes of critical care time exclusive of time spent on separately billable procedures. Time includes review of lab data, radiology results, discussion with consultants, and monitoring for potential decompensation. Interventions were performed as documented above Discharge Plan Discharge Clinical Impression: Atrial flutter Patient Disposition: Admitted As Inpatient
[2023-02-01] MEDS: 0.9 % Sodium Chloride 500 ML 999 ML IV (22:46)
[2023-02-01] MEDS: Metoprolol Tartrate 5 MG/5 ML VIAL IVPUSH (22:46)
[2023-02-01 22:52] LABS: Troponin-I High Sensitivity 6.8 ng/L (<3.5-35.0)
--- NOTE | 2023-02-01 22:55 | P.HPHOSP_ITS ---
History of Present Illness Date of Service: 02/01/23 Chief Complaint: Atrial flutter This is 42-year-old male with pertinent history of congestive failure with preserved ejection fraction, alcohol use disorder who presents to the emergency with palpitations. Patient states as he was walking from his work to his m other's place, he felt dizzy. Patient again felt dizzy for the 2nd time when he was climbing stairs. This was associated with palpitations. No similar history or symptoms in the past. No history of cardiac rhythm disorders. He denies fever, chills, chest discomfort, shortness of breath, abdominal pain, changes in urinary or bowel habits. In the emergency department, patient was found to be in atrial flutter Review of Systems ENT: Reports dizziness Cardiovascular: Cardiovascular: Reports rapid heart rate Respiratory: Respiratory: Reports no additional respiratory complaints Gastrointestinal: Gastrointestinal: Reports no additional gastrointestinal complaints Genitourinary: Genitourinary: Reports no additional male genitourinary complaints Neurologic: Reports dizziness [facility] Medical History Alcohol use disorder CHF (congestive heart failure) No pertinent past medical history Family History Mother CHF (congestive heart failure) CAD (coronary artery disease) Surgical History H/O thumb surgery Social History Household Members: Family Housing: Apartment Do you presently have visiting nurse or other home services: No Alcohol intake: former Patient Tobacco Use Status: Former Tobacco user Tobacco use type: Cigarette Smoked in Last 30 Days: No Second Hand Smoke Exposure: No Use of substances other than those prescribed or required for medical reasons: No Substance Use Type: Marijuana Advance Directives: No Advance Directives Information Provided: Yes Nutrition Risks: No Nutritional Risk service: No Current occupational status: employed Meds Allergies Allergy/AdvReac Type Severity Reaction Status Date / Time No Known Allergies Allergy Verified 01/13/23 21:43 [No Known Allergies*] Active Medications: Current Medications Sodium Chloride (Ns) 500 mls @ 999 mls/hr IV .Q31M MICK Stop: 02/01/23 23:00 Last Admin: 02/01/23 22:46 Dose: 999 mls/hr Physical Exam Vital Signs and Narrative: Vital Signs: Last Vital Signs Temp 98.3 F 02/01/23 21:50 Pulse 153 H 02/01/23 21:50 Resp 18 02/01/23 21:50 BP 113/72 02/01/23 21:50 Pulse Ox 98 02/01/23 21:50 O2 Del Method Room Air 02/01/23 21:50 BMI result Body Mass Index 32.5 Middle-aged male lying in bed in no distress Neck supple, no JVD Irregularly irregular, S1-S2 heard Regular breath sounds bilaterally, no wheezing or crackles appreciated Abdomen soft nontender, no guarding, no rigidity Patient is awake, alert and oriented to self, place, time and person ; no focal motor deficit Psych: Normal mood No pedal edema Results Labs 02/01/23 22:20 02/01/23 22:20 Labs: Laboratory Results - last 24 hr 02/01/23 02/01/23 02/01/23 21:52 22:20 22:20 MCV 91.8 MCH 31.1 MCHC 33.9 RDW 13.4 Plt Count 307 D MPV 10.1 Immature Gran % (Auto) 0.3 Neut % (Auto) 64.3 Lymph % (Auto) 27.6 [place] % (Auto) 6.9 Eos % (Auto) 0.6 Baso % (Auto) 0.3 Lymph # (Auto) 3.1 [place] # (Auto) 0.8 Eos # (Auto) 0.1 Baso # (Auto) 0.0 Abs Immat Gran (auto) 0.03 Absolute Neuts (auto) 7.1 Absolute Nucleated RBC 0.000 Nucleated RBC % (auto) 0.0 POC Glucose 129 H Troponin I High Sens 6.8 Imaging Radiologist's Impressions: Impressions Chest X-Ray 02/01/23 22:22 IMPRESSION: No radiographic evidence of pneumonia. No acute pulmonary process. Cardiomegaly. Assessment and Plan (1) Atrial flutter: Status: Acute Plan This is 42-year-old male with pertinent history of congestive failure with preserved ejection fraction, alcohol use disorder who presents to the emergency with palpitations. #. Presyncope in the setting of: #. Atrial flutter with rapid ventricular rate ?new onset: With admit patient with cardiac rehabilitation specialist. Obtain TSH, echocardiogram. Consulting Cardiology, appreciate assistance. Rate controlled with IV SI beny blocking agents in the ER. Chads Vasc score 1 #. Congestive heart failure with reduced ejection fraction. Patient on Entre sto, Jardiance, bisoprolol and spironolactone #. Alcohol use disorder. Patient states his last alcohol drink was about a month ago Med rec pending DVT prophylaxis: Lovenox Full code Cardiac diet Admit as inpatient and will require two night minimum hospital stay for close hemodynamic monitoring. Specialist consult pending Time Spent With Patient Time: Total time managing care of this patient today ____ minutes. Quality Stroke Does the patient have a stroke diagnosis?: No VTE Prior VTE?: No VTE Risk Level:: Medical - moderate - high VTE Device Contraindication: Treatment Not Indicated VTE Drug Contraindication: N/A - Med Ordered
[2023-02-01 22:57] LABS: Glucose, Whole Blood 144 mg/dL (60-115)
--- NOTE | 2023-02-01 22:57 | MHC.EDTECH ---
Patient resting quietly, POC and labs done . VSS
[2023-02-01 23:06] LABS: Thyroid Stimulating Hormone 1.54 uIU/mL (0.32-4.0)
[2023-02-01 23:43] VITALS: BP 86/64; PULSE 116; RESP 18; TEMP 36.9; O2SAT 95
[2023-02-01 23:58] LABS: Anion Gap 14 (12-20)
[2023-02-02] VITALS (7 sets, daily range): BP systolic 93–117; BP diastolic 54–88; PULSE 48–144; RESP 14–26; TEMP 36.6; O2SAT 93–97
--- NOTE | 2023-02-02 | ECG_ITS ---
Test Reason : HR INCREASE Blood Pressure : / mmHG Vent. Rate : 145 BPM Atrial Rate : 283 BPM P-R Int : 000 ms QRS Dur : 098 ms QT Int : 290 ms P-R-T Axes : 123 -83 054 degrees QTc Int : 450 ms Atrial flutter with variable A-V block with premature ventricular or aberrantly conducted complexes Left axis deviation Anterior infarct (cited on or before 16-JAN-2023) Abnormal ECG When compared with ECG of 01-FEB-2023 21:59, Premature ventricular complexes present Referred By: Claudia Jama Electronically Signed By:SHAHNAZ LEMONS
[2023-02-02 00:03] LABS: Blood Urea Nitrogen 13 mg/dL (9-16); Calcium 9.5 mg/dL (8.4-10.2); Carbon Dioxide 21 mmol/L (22-29); Chloride 109 mmol/L (96-108); Creatinine Clr Calc Pharmacy 120.2; Estimated Glomerular Filt Rate > 60; Ethanol < 10 mg/dL; Glucose Random 120 mg/dL (60-115); Potassium 3.9 mmol/L (3.3-5.1); Sodium 140 mmol/L (135-145)
[2023-02-02] MEDS: 0.9 % Sodium Chloride 500 ML 999 ML IV (00:25)
[2023-02-02] MEDS: 0.9 % Sodium Chloride Flush 3 ML SYRINGE IVFLUSH (02:18)
[2023-02-02 04:57] LABS: MANUAL DIFF FLAG NO
[2023-02-02 04:58] LABS: Basophils Percent Auto 0.3 % (0-2); Eosinophils Absolute Auto 0.1 X10*3/uL (0.0-0.4); Eosinophils Percent Auto 0.8 % (0-4); Hematocrit 47.1 % (42.0-52.0); Hemoglobin 15.6 g/dl (14.0-18.0); Imm Gran Abs Auto 0.03 X10*3/uL (0.00-0.03); Imm Gran Pct Auto 0.3 % (0.0-0.4); Lymphocytes Absolute Auto 3.5 X10*3/uL (1.2-4.9); Lymphocytes Percent Auto 32.9 % (20-40); Mean Corpuscular HGB Conc 33.1 g/dl (31.0-36.0); Mean Corpuscular Hemoglobin 31.3 pg (27.0-33.0); Mean Corpuscular Volume 94.4 fL (80.0-98.0); Monocytes Absolute Auto 0.9 X10*3/uL (0.1-1.2); Monocytes Percent Auto 8.1 % (2-11); Neutrophils Absolute Auto 6.2 x10*3/uL (2.0-8.3); Neutrophils Percent Auto 57.6 % (45-73); Platelet Count 302 X10*3/uL (160-400); Red Blood Count 4.99 X10*6/uL (4.60-5.80); Red Cell Distribution Width 13.8 % (11.0-16.0); White Blood Count 10.7 X10*3/uL (4.8-10.8)
[2023-02-02 05:15] LABS: Anion Gap 12 (12-20); Blood Urea Nitrogen 13 mg/dL (9-16); Calcium 9.7 mg/dL (8.4-10.2); Carbon Dioxide 23 mmol/L (22-29); Chloride 109 mmol/L (96-108); Creatinine Clr Calc Pharmacy 109.6; Estimated Glomerular Filt Rate > 60; Glucose Random 109 mg/dL (60-115); Sodium 140 mmol/L (135-145)
--- NOTE | 2023-02-02 05:33 | PC.NURSE ---
Med req completed
--- NOTE | 2023-02-02 09:40 | HO.PM.IMPN ---
Subjective Subjective Date of Service: 02/02/23 Review of Systems Follow-up new onset atrial fibrillation Patient developed a stroke at 09:30 this morning plan is for transfer to ICU Physical Exam Vital Signs: Vital Signs: Last Vital Signs Temp 97.9 F 02/02/23 08:34 Pulse 48 L 02/02/23 08:34 Resp 17 02/02/23 08:34 BP 96/61 02/02/23 08:34 Pulse Ox 97 02/02/23 08:34 O2 Del Method Room Air 02/02/23 08:34 BMI result Body Mass Index 32.5 Appearing in no acute distress head is normocephalic atraumatic eyes pupils are PERRLA sclera is anicteric mouth throat mucous membranes are intact and moist lung sounds are clear to auscultation heart regular rate irregularly irregular positive bowel sounds, abdomen is soft, nontender neuro patient is alert but aphasic with 1/5 strength to right upper extremity, 3/5 strength to right lower extremity, noted facial droop Objective Data Active Medications Acetaminophen (Acetaminophen 325 Mg Tablet) 650 mg PO Q6H PRN PRN Reason: Pain, Mild (Pain Scale 1-3) Enoxaparin Sodium (Enoxaparin Sodium 40 Mg/0.4 Ml Syringe) 40 mg SUBCUT Q24H [facility] Last Admin: 02/02/23 02:19 Dose: Not Given Documented By: KARIS Non-Admin Reason: Med Not Available Melatonin (Melatonin 3 Mg Tablet) 6 mg PO BEDTIME PRN PRN Reason: Insomnia Ondansetron HCl (Ondansetron Hcl 4 Mg/2 Ml Vial) 4 mg IVPUSH Q8H PRN PRN Reason: Nausea and Vomiting Sodium Chloride (0.9 % Sodium Chloride Flush 3 Ml Syringe) 3 ml IVFLUSH QSHIFT [facility] Last Admin: 02/02/23 02:18 Dose: 3 ml Documented By: KARIS Labs 02/02/23 04:49 02/02/23 04:49 Labs: Laboratory Results - last 24 hr 02/01/23 02/01/23 02/01/23 21:52 22:20 22:20 MCV 91.8 MCH 31.1 MCHC 33.9 RDW 13.4 Plt Count 307 D MPV 10.1 Immature Gran % (Auto) 0.3 Neut % (Auto) 64.3 Lymph % (Auto) 27.6 [place] % (Auto) 6.9 Eos % (Auto) 0.6 Baso % (Auto) 0.3 Lymph # (Auto) 3.1 [place] # (Auto) 0.8 Eos # (Auto) 0.1 Baso # (Auto) 0.0 Abs Immat Gran (auto) 0.03 Absolute Neuts (auto) 7.1 Absolute Nucleated RBC 0.000 Nucleated RBC % (auto) 0.0 Anion Gap Estim Creat Clear Calc Estimated GFR POC Glucose 129 H Random Glucose Calcium Total Creatine Kinase Troponin I High Sens 6.8 TSH Ethyl Alcohol 02/01/23 02/01/23 02/02/23 22:54 23:40 04:49 MCV 94.4 MCH 31.3 MCHC 33.1 RDW 13.8 Plt Count 302 MPV 10.0 Immature Gran % (Auto) 0.3 Neut % (Auto) 57.6 Lymph % (Auto) 32.9 [place] % (Auto) 8.1 Eos % (Auto) 0.8 Baso % (Auto) 0.3 Lymph # (Auto) 3.5 [place] # (Auto) 0.9 Eos # (Auto) 0.1 Baso # (Auto) 0.0 Abs Immat Gran (auto) 0.03 Absolute Neuts (auto) 6.2 Absolute Nucleated RBC 0.000 Nucleated RBC % (auto) 0.0 Anion Gap 14 Estim Creat Clear Calc 120.2 Estimated GFR > 60 POC Glucose 144 H Random Glucose 120 H Calcium 9.5 Total Creatine Kinase 95 Troponin I High Sens TSH 1.54 Ethyl Alcohol < 10 02/02/23 04:49 MCV MCH MCHC RDW Plt Count MPV Immature Gran % (Auto) Neut % (Auto) Lymph % (Auto) [place] % (Auto) Eos % (Auto) Baso % (Auto) Lymph # (Auto) [place] # (Auto) Eos # (Auto) Baso # (Auto) Abs Immat Gran (auto) Absolute Neuts (auto) Absolute Nucleated RBC Nucleated RBC % (auto) Anion Gap 12 Estim Creat Clear Calc 109.6 Estimated GFR > 60 POC Glucose Random Glucose 109 Calcium 9.7 Total Creatine Kinase Troponin I High Sens TSH Ethyl Alcohol Assessment and Plan (1) Stroke: Status: Acute Plan 42-year-old male with pertinent history of congestive failure with preserved ejection fraction, alcohol use disorder who presents to the emergency with palpitations. Stroke acute episode at 0930 with aphagia and hemiplegia to rue given TPA in the ED hemodynamically stable at this point, plan to transfer to ICU for close monitoring neurology consult head CTA distal M2 branch of the left MCA in the posterior aspect of the sylvian fissure, occlusion Presyncope in the setting of Atrial flutter with rapid ventricular rate, new onset. Obtain TSH, echocardiogram.? Consulting Cardiology Rate controlled with IV SI beny blocking agents in the ER.? Chads Vasc score 1 Congestive heart failure with reduced ejection fraction.? Patient on Entresto, Jardiance, bisoprolol and spironolactone Alcohol use disorder.? Patient states his last alcohol drink was about a month ago DVT prophylaxis TPA in the ED Full code Time Spent With Patient Time: Total time managing care of this patient today ____ minutes. Quality Stroke Does the patient have a stroke diagnosis?: No VTE Prior VTE?: No VTE Risk Level:: Medical - moderate - high VTE Device Contraindication: Treatment Not Indicated VTE Drug Contraindication: N/A - Med Ordered
[2023-02-02 09:45] LABS: INTERNATIONAL NORM RATIO 1.1 (0.9-1.1); Prothrombin Time 13.1 SEC (10.0-13.1)
--- NOTE | 2023-02-02 09:48 | PC.NURSE ---
TPA started at 0945am due to possible stroke. NIH score of 13. patient is alert and orientated x 4 but unable to speak at this time. right side of his body he is unable to raise leg or complete a hand grasp to this mortgage or loan underwriter. monitoring vitals every 10 minutes. HR is in the 110-120's , [employer] is aware
--- NOTE | 2023-02-02 11:03 | MHC.CM.PN ---
Lives at home with his mother. No prior services or equipment. 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 When Pt needs to go to an appt, his mother drives him where he needs to go. D/C plan is return to home with his mother via mother. Please note: throughout a very lengthy discussion with Pt's mother, this CM made several (unsuccessful) attempts to redirect her to the pertinent conversation at hand; establishing safe and appropriate D/C planning needs for the Pt. All of her communication issued was primarily about herself, her own unfortunate family and marital history and how her children and siblings now care for herself and how that dynamic presents. She would like to know when her son (the Pt) can return home and continue taking care of her. A significant amount of time was spent in redirection attempts towards applicable topic requirements surrounding the current Pt and his D/C planning needs. D/C plan at this time would be to return home via mother when D/C deemed appropriate. CM to follow.
[2023-02-02] MEDS: iohexoL 350 MG/ML 75 ML INFUS..BTL 140 ML IV (11:06)
--- NOTE | 2023-02-02 11:06 | PM.CNCAR ---
History of Present Illness History of Present Illness Date of Service: 02/02/23 Chief complaint: Palpitations Narrative: This is a cardiology consultation regarding atrial flutter. Initially went to the ER this morning but he was in the CT scan room. I waited for a while but decided to just go into the CT scan room and see him in there. It appears that patient came to hospital palpitations. Then noted to be in atrial flutter with rapid rate and decided to be admitted. This morning, he was exhibiting stroke signs and that led to an urgent CT scan. That is still being completed. Seems that he also got thrombolytic therapy. When I tried to speak to the patient in the CT scan room, he is not able to say any words due to the stroke. When I questioned him specifically about chest pain or shortness of breath, he denies it. When I questioned him about palpitations, he shook his head as yes. Review of Systems Review of Systems: Yes all other systems are reviewed and are negative Constitutional: Constitutional: Reports as per HPI and Reports no additional constitutional complaints Eyes: Eyes: Reports as per HPI and Denies no additional eye complaints ENT: Denies system reviewed and no additional complaints, except as documented and Reports as per HPI Cardiovascular: Cardiovascular: Reports as per HPI, Reports no additional cardiovascular complaints, Denies acrocyanosis, Denies cool extremities, Denies chest pain, Denies leg edema, Denies lightheadedness, Reports palpitations and Denies dyspnea Respiratory: Respiratory: Reports as per HPI, Denies no additional respiratory complaints and Denies dyspnea Gastrointestinal: Gastrointestinal: Reports as per HPI and Denies no additional gastrointestinal complaints Genitourinary: Genitourinary: Reports no additional male genitourinary complaints and Reports as per HPI Musculoskeletal: Musculoskeletal: Reports no additional musculoskeletal complaints and Reports as per HPI Integumentary/Breasts: Skin/Breast: Reports system reviewed and no additional complaints, except as docu Neurologic: Reports system reviewed and no additional complaints, except as documented and Reports as per HPI Psychiatric: Psychiatric: Reports no additional psychiatric complaints and Reports as per HPI Endocrine: Endocrine: Reports no additional endocrine complaints, Reports as per HPI and Reports palpitations Hematologic/Lymphatic: Hematologic/Lymphatic: Reports no additional hematologic/lymphatic complaints and Reports as per HPI Allergic/Immunologic: Allergic/Immunologic: Reports no additional allergic/immunologic complaints and Reports as per HPI PMFSH Past Medical History Medical History Alcohol use disorder CHF (congestive heart failure) No pertinent past medical history Family History Family History Mother CHF (congestive heart failure) CAD (coronary artery disease) Surgical History Surgical History H/O thumb surgery Social History Social History Household Members: Family Housing: Apartment Do you presently have visiting nurse or other home services: No Alcohol intake: former Patient Tobacco Use Status: Former Tobacco user Tobacco use type: Cigarette Smoked in Last 30 Days: No Second Hand Smoke Exposure: No Use of substances other than those prescribed or required for medical reasons: No Substance Use Type: Marijuana Advance Directives: No Advance Directives Information Provided: Yes Nutrition Risks: No Nutritional Risk service: No Current occupational status: employed Meds Allergies Allergy/AdvReac Type Severity Reaction Status Date / Time No Known Allergies Allergy Verified 01/13/23 21:43 [No Known Allergies*] Active Medications: Current Medications Acetaminophen (Acetaminophen 325 Mg Tablet) 650 mg PO Q6H PRN PRN Reason: Pain, Mild (Pain Scale 1-3) Enoxaparin Sodium (Enoxaparin Sodium 40 Mg/0.4 Ml Syringe) 40 mg SUBCUT Q24H [facility] Last Admin: 02/02/23 02:19 Dose: Not Given Iohexol (Iohexol 350 Mg/Ml 75 Ml Infus..Btl) 140 ml IV ONCE ONE Stop: 02/02/23 11:06 Last Admin: 02/02/23 11:06 Dose: 140 ml Melatonin (Melatonin 3 Mg Tablet) 6 mg PO BEDTIME PRN PRN Reason: Insomnia Ondansetron HCl (Ondansetron Hcl 4 Mg/2 Ml Vial) 4 mg IVPUSH Q8H PRN PRN Reason: Nausea and Vomiting Sodium Chloride (0.9 % Sodium Chloride Flush 3 Ml Syringe) 3 ml IVFLUSH QSHIFT [facility] Last Admin: 02/02/23 09:45 Dose: Not Given Home Medications Medication Instructions Recorded Confirmed Last Taken Type bisoprolol fumarate 5 mg tablet 1.25 mg PO DAILY 02/02/23 02/02/23 Unknown History spironolactone 25 mg tablet 25 mg PO DAILY 02/02/23 02/02/23 Unknown History Physical Exam Vital Signs: Vital Signs: Last Vital Signs Temp 97.9 F 02/02/23 08:34 Pulse 124 H 02/02/23 10:04 Resp 20 02/02/23 10:04 BP 97/78 02/02/23 10:04 Pulse Ox 96 02/02/23 10:04 O2 Del Method Room Air 02/02/23 10:04 BMI result Body Mass Index 32.5 Const: General: comfortable and no acute distress Orientation/consciousness: patient oriented x3 HEENT: Other: Unremarkable Head: Yes normal to inspection Neck: Neck: Yes normal visual inspection Chest: Chest palpation & inspection: normal inspection of the chest Resp: Auscultation: clear to auscultation bilaterally Cardio: Palpation: normal PMI Heart sounds: S1 normal heart sound present, S2 normal heart sound present, no gallops, no murmurs and no rubs GI: Palpation (GI): Soft to palpation Back/Spine/Pelvis: Other: unremarkable Skin: General skin exam: no rashes or lesions noted Neuro: General: patient oriented x3 Extrem: General: Yes normal to inspection Psych: Mental Status: mental status grossly normal Objective Labs and Meds 02/02/23 04:49 02/02/23 04:49 Lab results: Laboratory Results - last 24 hr 02/01/23 02/01/23 02/01/23 21:52 22:20 22:20 WBC 11.1 H RBC 5.34 Hgb 16.6 Hct 49.0 MCV 91.8 MCH 31.1 MCHC 33.9 RDW 13.4 Plt Count 307 D MPV 10.1 Immature Gran % (Auto) 0.3 Neut % (Auto) 64.3 Lymph % (Auto) 27.6 [place] % (Auto) 6.9 Eos % (Auto) 0.6 Baso % (Auto) 0.3 Lymph # (Auto) 3.1 [place] # (Auto) 0.8 Eos # (Auto) 0.1 Baso # (Auto) 0.0 Abs Immat Gran (auto) 0.03 Absolute Neuts (auto) 7.1 Absolute Nucleated RBC 0.000 Nucleated RBC % (auto) 0.0 PT INR Sodium Potassium Chloride Carbon Dioxide Anion Gap BUN Creatinine Estim Creat Clear Calc Estimated GFR POC Glucose 129 H Random Glucose Calcium Total Creatine Kinase Troponin I High Sens 6.8 TSH Ethyl Alcohol 02/01/23 02/01/23 02/02/23 22:54 23:40 04:49 WBC 10.7 RBC 4.99 Hgb 15.6 Hct 47.1 MCV 94.4 MCH 31.3 MCHC 33.1 RDW 13.8 Plt Count 302 MPV 10.0 Immature Gran % (Auto) 0.3 Neut % (Auto) 57.6 Lymph % (Auto) 32.9 [place] % (Auto) 8.1 Eos % (Auto) 0.8 Baso % (Auto) 0.3 Lymph # (Auto) 3.5 [place] # (Auto) 0.9 Eos # (Auto) 0.1 Baso # (Auto) 0.0 Abs Immat Gran (auto) 0.03 Absolute Neuts (auto) 6.2 Absolute Nucleated RBC 0.000 Nucleated RBC % (auto) 0.0 PT INR Sodium 140 Potassium 3.9 Chloride 109 H Carbon Dioxide 21 L Anion Gap 14 BUN 13 Creatinine 1.03 Estim Creat Clear Calc 120.2 Estimated GFR > 60 POC Glucose 144 H Random Glucose 120 H Calcium 9.5 Total Creatine Kinase 95 Troponin I High Sens TSH 1.54 Ethyl Alcohol < 10 02/02/23 02/02/23 04:49 09:34 WBC RBC Hgb Hct MCV MCH MCHC RDW Plt Count MPV Immature Gran % (Auto) Neut % (Auto) Lymph % (Auto) [place] % (Auto) Eos % (Auto) Baso % (Auto) Lymph # (Auto) [place] # (Auto) Eos # (Auto) Baso # (Auto) Abs Immat Gran (auto) Absolute Neuts (auto) Absolute Nucleated RBC Nucleated RBC % (auto) PT 13.1 INR 1.1 Sodium 140 Potassium 4.0 Chloride 109 H Carbon Dioxide 23 Anion Gap 12 BUN 13 Creatinine 1.13 Estim Creat Clear Calc 109.6 Estimated GFR > 60 POC Glucose Random Glucose 109 Calcium 9.7 Total Creatine Kinase Troponin I High Sens TSH Ethyl Alcohol ECG Interpretation: EKG shows atrial flutter at a rate of 157/Min. Imaging Radiologist's impression: Impressions Chest X-Ray 02/01/23 22:22 IMPRESSION: No radiographic evidence of pneumonia. No acute pulmonary process. Cardiomegaly. Head CT 02/02/23 09:29 IMPRESSION: No acute intracranial hemorrhage or mass effect. This critical result was discussed with Dr. Church at 9:29 AM hours on 02/02/2023. It was ascertained that the content and urgency of the report was understood at the time of direct communication. Assessment and Plan (1) Atrial flutter with rapid ventricular response: Status: Acute (2) Dilated cardiomyopathy: Status: Acute (3) Stroke: Status: Acute Plan In the recent echocardiogram, LVEF 15-20%. Severely increased cavity size. Left atrium severely dilated. Pulmonary hypertension noted. Troponin level within range. Overall, possible embolic event causing stroke. It seems he already got thrombolytics. Brain imaging is still being completed. Subsequently, admit to ICU for further care. Anticoagulation per thrombotic protocol. Rate control to be decided based on his blood pressure as is already on lower side. Discussed with Dr. Jarvis/. To be admitted to ICU. Time Spent With Patient Time: Total time managing care of this patient today ____ minutes. Procedures Date of Service Date of Service: 02/02/23
--- NOTE | 2023-02-02 11:20 | P.CNNE_ITS ---
History of Present Illness Data of Consult Service Date: 02/02/23 Primary Care Provider: MD MAYA Palomino Reason for consult: Acute stroke 42 years old man with past medical history of alcohol abuse and congestive heart failure admitted in hospital with palpitation and dizziness and was noted to be in atrial flutter. This morning while he was not anticoagulated he was noted to be suddenly having symptoms of stroke. Is right-sided did not move and he could not speak. After discussing with the ER physician, intravenous tPA treatment was given and a CTA was arranged. After tPA his symptoms somewhat improved. There was no sign of distress or headache or nausea or vomiting. Review of Systems Review of Systems: Recent dizziness and palpitation. [facility] Past Medical History Medical History Alcohol use disorder CHF (congestive heart failure) No pertinent past medical history Family History Family History Mother CHF (congestive heart failure) CAD (coronary artery disease) Surgical History Surgical History H/O thumb surgery Social History Social History Household Members: Family Housing: Apartment Do you presently have visiting nurse or other home services: No Alcohol intake: former Patient Tobacco Use Status: Former Tobacco user Tobacco use type: Cigarette Smoked in Last 30 Days: No Second Hand Smoke Exposure: No Use of substances other than those prescribed or required for medical reasons: No Substance Use Type: Marijuana Advance Directives: No Advance Directives Information Provided: Yes Nutrition Risks: No Nutritional Risk service: No Current occupational status: employed Meds Allergies Allergy/AdvReac Type Severity Reaction Status Date / Time No Known Allergies Allergy Verified 01/13/23 21:43 [No Known Allergies*] Active Medications: Current Medications Acetaminophen (Acetaminophen 325 Mg Tablet) 650 mg PO Q6H PRN PRN Reason: Pain, Mild (Pain Scale 1-3) Enoxaparin Sodium (Enoxaparin Sodium 40 Mg/0.4 Ml Syringe) 40 mg SUBCUT Q24H [facility] Last Admin: 02/02/23 02:19 Dose: Not Given Melatonin (Melatonin 3 Mg Tablet) 6 mg PO BEDTIME PRN PRN Reason: Insomnia Ondansetron HCl (Ondansetron Hcl 4 Mg/2 Ml Vial) 4 mg IVPUSH Q8H PRN PRN Reason: Nausea and Vomiting Sodium Chloride (0.9 % Sodium Chloride Flush 3 Ml Syringe) 3 ml IVFLUSH QSHIFT [facility]AC[facility] Last Admin: 02/02/23 09:45 Dose: Not Given Home Medications Medication Instructions Recorded Confirmed Last Taken Type bisoprolol fumarate 5 mg tablet 1.25 mg PO DAILY 02/02/23 02/02/23 Unknown History spironolactone 25 mg tablet 25 mg PO DAILY 02/02/23 02/02/23 Unknown History Physical Exam Vital Signs: Vital Signs: Last Vital Signs Temp 97.9 F 02/02/23 08:34 Pulse 124 H 02/02/23 10:04 Resp 20 02/02/23 10:04 BP 97/78 02/02/23 10:04 Pulse Ox 96 02/02/23 10:04 O2 Del Method Room Air 02/02/23 10:04 BMI result Body Mass Index 32.5 Neuro: Other: This examination was done while he was on CT table. He was alert and awake made eye contact. Comprehension was intact. When I asked him to tell me his name he whispered that he he could not speak. He told me his last name. There was moderate central type right facial weakness and tongue deviated to right. There was mild right arm or leg weakness. Right plantar was extensor and left was equivocal. There was no obvious neglect. Results Labs 02/02/23 04:49 02/02/23 04:49 Labs: Short CBC 02/01/23 02/02/23 Range/Units 22:20 04:49 WBC 11.1 H 10.7 (4.8-10.8) X10*3/uL Hgb 16.6 15.6 (14.0-18.0) g/dl Hct 49.0 47.1 (42.0-52.0) % Plt Count 307 D 302 (160-400) X10*3/uL BMP 02/01/23 02/02/23 23:40 04:49 Sodium 140 140 Potassium 3.9 4.0 Chloride 109 H 109 H Carbon Dioxide 21 L 23 BUN 13 13 Creatinine 1.03 1.13 Calcium 9.5 9.7 Cardiac Enzymes 02/01/23 Range/Units 23:40 Total Creatine Kinase 95 (38-174) U/L His initial head CT did not reveal any significant abnormality. CTA of brain and neck was reviewed. This seems to be [id number] left M1 stenosis. Otherwise left ICA and distal MCA seems to be okay. Assessment and Plan (1) Stroke: Status: Acute 42 years old man who probably had an acute ischemic left middle cerebral artery infarct. Symptoms included right hemiparesis and aphasia. It was treated with intravenous tPA and his symptoms were better though he still had some difficulty speaking and right sided weakness. To my review, there is no significant vascular lesion other than mild to moderate left M1 stenosis. If this is the final impression of radiologist, I recommend admission to ICU and hydration and avoidance of hypotension. Starting tomorrow, long-term anticoagulation is also recommended. I would suggest holding all blood pressure medicines at this time Time Spent With Patient Time: Total time managing care of this patient today ____ minutes. Procedures Date of Service Date of Service: 02/02/23
--- NOTE | 2023-02-02 11:24 | PC.NURSE ---
right IV with infiltrate noted, warm compresses applied.
--- NOTE | 2023-02-02 12:07 | PC.NURSE ---
Neuro is all intact. right leg and right arm with big improvements noted, able to raise both extremities now independently, speech is slightly improving also. family is at bedside
--- NOTE | 2023-02-02 12:30 | PC.NURSE ---
a approx 9:20am pt was complaining about his right arm felt funny and hurt , this underwriter also noted to have a left facial droop and language was garbled.
--- NOTE | 2023-02-02 12:35 | MHC.STROKE ---
05/04/23 2140 WALK-IN C/O DIZZINESS. 05/05/23 iNPATIENT STROKE: PATIENT WAITING FOR BED. I WAS NOTIFIED THAT AN INPATIENT STROKE PROTOCOL WAS ACTIVATED. AT 09 RIGHT HEMIPARESIS AND APHASIA, NIHSS = 13. DR ALCALA NOTIFIED. STAT CTH, NO BLEED. TPA-ALTEPLASE ORDERED AT 0930. TPA-ALTEPLASE BOLUS GIVEN AT 0945. CTA H/N DONE DELAY DUE TO IV ACCESS. +LEFT M2 DISTAL OCCLUSION NOTED. I SPOKE WITH DELORES RN. SHE CONVEYED THAT DR MALONEY PRESENTED THE CASE TO [facility] AND THE PATIENT HAS BEEN ACCEPTED THERE FOR EVALUATION OF THROMBECTOMY. THE PATIENT SYMPTOMS ARE SLIGHTLY IMPROVED. I HAVE CONTACTED THE HOSPITALIST TO ASSIST WITH POST-TPA ORDERS AND DISCHARGE ORDERS. I REVIEWED THE FREQUENT VITALS AND NEURO'S. PATIENT FAILED SWALLOW SCREEN AND WILL REMAIN NPO. I AM AVAILABLE FOR ANY QUESTIONS.
--- NOTE | 2023-02-02 12:54 | PM.DS ---
DS: Providers Provider Date of Service: 02/02/23 Date of admission: 02/01/23 23:54 Primary care physician: Lino Stone MD Consults: 02/01/23 22:54 Consult to Cardiology Routine Consulting Provider: [facility] Reason for consultation: atrial flutter Has provider been notified: Yes DS: Diagnosis Discharge Diagnosis (1) Stroke: Status: Acute DS: Summary Hospital Course Hospital Course: This is 42-year-old male with pertinent history of congestive failure with preserved ejection fraction, alcohol use disorder who presents to the emergency with palpitations.? Patient states as he was walking from his work to his mother's place, he felt dizzy.? Patient again felt dizzy for the 2nd time when he was climbing stairs.? This was associated with palpitations.? No similar history or symptoms in the past.? No history of cardiac rhythm disorders.? He denies fever, chills, chest discomfort, shortness of breath, abdominal pain, changes in urinary or bowel habits. In the emergency department, patient was found to be in atrial flutter Stroke, developed while in the ED acute episode at 0930 with aphagia and hemiplegia to rue given TPA in the ED hemodynamically stable at this point, plan to transfer to [facility] for thrombectomy head CTA distal M2 branch of the left MCA in the posterior aspect of the sylvian fissure, occlusion Presyncope in the setting of Atrial flutter with rapid ventricular rate, new onset. Obtained TSH, echocardiogram.? Rate controlled with IV SI beny blocking agents in the ER.? Chads Vasc score 1 Congestive heart failure with reduced ejection fraction.? Patient on Entresto, Jardiance, bisoprolol and spironolactone Alcohol use disorder.? Patient states his last alcohol drink was about a month ago Time Spent with Patient Time attestation: Total time managing care of this patient today ____ minutes. Discharge coordination time: Greater than 30 minutes Quality: Safe Use of Opioids Does Pt have an Active Cancer Diagnosis on the Problem List?: No Quality: Stroke Does the patient have a stroke diagnosis?: No Physical Exam Vital Signs: Vital Signs: Last Vital Signs Temp 97.9 F 02/02/23 08:34 Pulse 125 H 02/02/23 12:01 Resp 26 H 02/02/23 12:01 BP 114/88 02/02/23 12:01 Pulse Ox 96 02/02/23 12:01 O2 Del Method Room Air 02/02/23 12:01 BMI result Body Mass Index 32.5 Appearing in no ac [place] distress ?head is normocephalic atraumatic ?eyes p upils are PERRLA s clera is anicteric ?mouth throat muc ous membranes are intact and moist ? lung sounds are cl ear to auscultatio n ?heart regular r ate? irregularly i rregular ?positive bowel sounds, abd omen is soft, nont les ?neuro patie nt is alert but ap hasic with 1/5 str ength to right upp er extremity, 3/5 strength to right lower extremity, n oted facial droop DS: Data Data Completed and Pending Completed studies during hospitalization [Text1]: Procedures Insertion of Infusion Device into Superior Vena Cava, Percutaneous Approach (01/17/23) Introduction of Vasopressor into Central Vein, Percutaneous Approach (01/17/23) Ultrasonography of Superior Vena Cava, Guidance (01/17/23) Labs on day of discharge: Laboratory Results - last 24 hr 02/01/23 02/01/23 02/01/23 21:52 22:20 22:20 WBC 11.1 H RBC 5.34 Hgb 16.6 Hct 49.0 MCV 91.8 MCH 31.1 MCHC 33.9 RDW 13.4 Plt Count 307 D MPV 10.1 Immature Gran % (Auto) 0.3 Neut % (Auto) 64.3 Lymph % (Auto) 27.6 [place] % (Auto) 6.9 Eos % (Auto) 0.6 Baso % (Auto) 0.3 Lymph # (Auto) 3.1 [place] # (Auto) 0.8 Eos # (Auto) 0.1 Baso # (Auto) 0.0 Abs Immat Gran (auto) 0.03 Absolute Neuts (auto) 7.1 Absolute Nucleated RBC 0.000 Nucleated RBC % (auto) 0.0 PT INR Sodium Potassium Chloride Carbon Dioxide Anion Gap BUN Creatinine Estim Creat Clear Calc Estimated GFR POC Glucose 129 H Random Glucose Calcium Total Creatine Kinase Troponin I High Sens 6.8 TSH Ethyl Alcohol 02/01/23 02/01/23 02/02/23 22:54 23:40 04:49 WBC 10.7 RBC 4.99 Hgb 15.6 Hct 47.1 MCV 94.4 MCH 31.3 MCHC 33.1 RDW 13.8 Plt Count 302 MPV 10.0 Immature Gran % (Auto) 0.3 Neut % (Auto) 57.6 Lymph % (Auto) 32.9 [place] % (Auto) 8.1 Eos % (Auto) 0.8 Baso % (Auto) 0.3 Lymph # (Auto) 3.5 [place] # (Auto) 0.9 Eos # (Auto) 0.1 Baso # (Auto) 0.0 Abs Immat Gran (auto) 0.03 Absolute Neuts (auto) 6.2 Absolute Nucleated RBC 0.000 Nucleated RBC % (auto) 0.0 PT INR Sodium 140 Potassium 3.9 Chloride 109 H Carbon Dioxide 21 L Anion Gap 14 BUN 13 Creatinine 1.03 Estim Creat Clear Calc 120.2 Estimated GFR > 60 POC Glucose 144 H Random Glucose 120 H Calcium 9.5 Total Creatine Kinase 95 Troponin I High Sens TSH 1.54 Ethyl Alcohol < 10 02/02/23 02/02/23 04:49 09:34 WBC RBC Hgb Hct MCV MCH MCHC RDW Plt Count MPV Immature Gran % (Auto) Neut % (Auto) Lymph % (Auto) [place] % (Auto) Eos % (Auto) Baso % (Auto) Lymph # (Auto) [place] # (Auto) Eos # (Auto) Baso # (Auto) Abs Immat Gran (auto) Absolute Neuts (auto) Absolute Nucleated RBC Nucleated RBC % (auto) PT 13.1 INR 1.1 Sodium 140 Potassium 4.0 Chloride 109 H Carbon Dioxide 23 Anion Gap 12 BUN 13 Creatinine 1.13 Estim Creat Clear Calc 109.6 Estimated GFR > 60 POC Glucose Random Glucose 109 Calcium 9.7 Total Creatine Kinase Troponin I High Sens TSH Ethyl Alcohol Discharge Plan Discharge Anticipated Discharge Date/Time: 02/02/23 13:34 Patient Disposition: Xfer Acute Care Hospital Discharge Diagnosis: Stroke Referrals: Lino Stone MD [Primary Care Provider] - 1 Week Discharge Medications: Continued Entresto 24-26 mg Tablet 1 tab PO BID Qty: 60 0RF Protocol: Hold for SBP< HOLD for SBP < : 90 Jardiance 10 mg Tablet 10 mg PO DAILY Qty: 30 0RF multivitamin [Daily-Sara] Tablet 1 tab PO DAILY Qty: 30 0RF spironolactone 25 mg tablet 25 mg PO DAILY bisoprolol fumarate 5 mg tablet 1.25 mg PO DAILY Discharge Orders: Discharge Order (Routine); Ordered 02/02/23 Ordered By: Claudia Jama Diet: NPO Activity on Discharge: Bedrest Care Plan Goals: acute care hospital transfer Health Concerns: Stroke Atrial fibrillation Plan of Treatment: Transfer to [facility] for possible thrombectomy. S/p tPA Assessment: see discharge summary Discharge Date/Time: 02/02/23 16:29
--- NOTE | 2023-02-02 12:55 | MHC.EDTECH ---
@[id number] called [facility] at the request of Dr. Church. Dr. Church took the call right away.
--- NOTE | 2023-02-02 12:56 | MHC.EDTECH ---
@[phone] [facility] called with a room assignment for the pt. Pt. will go to [facility] ED. Accepting is Dr. Zazueta. Nurse to nurse number .
[2023-02-02] MEDS: Digoxin 0.5 MG/2 ML AMPUL IVPUSH (12:57)
--- NOTE | 2023-02-02 13:02 | PC.NURSE ---
1302pm Gave Digoxin 0.5mg IVP HR 144 at that time.
--- NOTE | 2023-02-02 13:11 | PC.NURSE ---
GAVE NURSE TO NURSE REPORT ON PATIENT TO [facility]. WAITING ON AMBULANCE
--- NOTE | 2023-02-02 13:42 | W.PM.CCCN ---
History of Present Illness Data of Consult Service Date: 02/02/23 Requesting physician: Yvon Church Primary Care Provider: Lino Stone MD [facility] Reason for consult: Acute evolving left hemispheric CVA 42-year-old chronic alcoholic morbidly obese male with a background history of heart failure with reduced ejection fraction actually witnessed a to acutely become aphasic with drooping of the corner of the mouth and right-sided weakness and immediately went to kick to CT scan which was negative and based on an NIH score of 13 was given tPA with then witnessed improvement except the aphasia was slow to resolve I saw the patient in the CT scan area and he was unable to communicate with me but I did a bedside echo demonstrating a markedly dilated severely diffusely hypokinetic ventricle consistent with the congestive cardiomyopathy with 20% ejection fraction but no primary valve or pericardial disease so clearly in addition being on it or in atrial flutter with a rapid ventricular response at 01:50 he clearly was AA risk for an embolic CVA however there is a pending CT angiogram of the head and neck vessels to see if there is and other vascular issue that could represent a watershed or even the acute problem Review of Systems Review of Systems: Yes Unobtainable due to mental status PMFSH Past Medical History Medical History Alcohol use disorder CHF (congestive heart failure) No pertinent past medical history Family History Family History Mother CHF (congestive heart failure) CAD (coronary artery disease) Surgical History Surgical History H/O thumb surgery Social History Social History Household Members: Family Housing: Apartment Do you presently have visiting nurse or other home services: No Alcohol intake: former Patient Tobacco Use Status: Former Tobacco user Tobacco use type: Cigarette Second Hand Smoke Exposure: No Substance Use Type: Marijuana service: No Current occupational status: employed Meds Allergies Allergy/AdvReac Type Severity Reaction Status Date / Time No Known Allergies Allergy Verified 01/13/23 21:43 [No Known Allergies*] Active Medications: Current Medications Acetaminophen (Acetaminophen 325 Mg Tablet) 650 mg PO Q6H PRN PRN Reason: Pain, Mild (Pain Scale 1-3) Enoxaparin Sodium (Enoxaparin Sodium 40 Mg/0.4 Ml Syringe) 40 mg SUBCUT Q24H [facility] Last Admin: 02/02/23 02:19 Dose: Not Given Melatonin (Melatonin 3 Mg Tablet) 6 mg PO BEDTIME PRN PRN Reason: Insomnia Ondansetron HCl (Ondansetron Hcl 4 Mg/2 Ml Vial) 4 mg IVPUSH Q8H PRN PRN Reason: Nausea and Vomiting Sodium Chloride (0.9 % Sodium Chloride Flush 3 Ml Syringe) 3 ml IVFLUSH QSHIFT [facility] Last Admin: 02/02/23 09:45 Dose: Not Given Home Medications Medication Instructions Recorded Confirmed Last Taken Type bisoprolol fumarate 5 mg tablet 1.25 mg PO DAILY 02/02/23 02/02/23 Unknown History spironolactone 25 mg tablet 25 mg PO DAILY 02/02/23 02/02/23 Unknown History Physical Exam Vital Signs: Vital Signs: Last Vital Signs Temp 97.9 F 02/02/23 08:34 Pulse 144 H 02/02/23 13:02 Resp 23 H 02/02/23 13:02 BP 117/87 02/02/23 13:02 Pulse Ox 95 02/02/23 13:02 O2 Del Method Room Air 02/02/23 13:02 BMI result Body Mass Index 32.5 Physical exam he was awake and looking at me so there was cognitive function was able to move his right side but still slightly weak Bedside echo demonstrating 20% ejection fraction Chest both the chest x-ray as well as auscultation was clear Abdomen obese but no organomegaly Trace bilateral pretibial edema Results Labs 02/02/23 04:49 02/02/23 04:49 Labs: Short CBC 02/01/23 02/02/23 Range/Units 22:20 04:49 WBC 11.1 H 10.7 (4.8-10.8) X10*3/uL Hgb 16.6 15.6 (14.0-18.0) g/dl Hct 49.0 47.1 (42.0-52.0) % Plt Count 307 D 302 (160-400) X10*3/uL BMP 02/01/23 02/02/23 23:40 04:49 Sodium 140 140 Potassium 3.9 4.0 Chloride 109 H 109 H Carbon Dioxide 21 L 23 BUN 13 13 Creatinine 1.03 1.13 Calcium 9.5 9.7 Cardiac Enzymes 02/01/23 Range/Units 23:40 Total Creatine Kinase 95 (38-174) U/L Assessment and Plan (1) Acute CVA (cerebrovascular accident): Status: Acute (2) Atrial flutter with rapid ventricular response: Status: Acute (3) Alcohol use disorder: Status: Acute (4) CHF (congestive heart failure): Status: Acute (5) Atrial flutter: Status: Acute (6) Acute exacerbation of CHF (congestive heart failure): Status: Acute (7) Dilated cardiomyopathy: Status: Acute (8) Acute HFrEF (heart failure with reduced ejection fraction): Status: Acute Plan So the impression is that we have an embolic source from his myopathy and the CTA of apparently is showing that there is an M2 branch that is near totally occluded off the left middle cerebral artery so he is probably going to go for an endovascular approach and eventually of course he is going to need to be anticoagulated but I had ordered 0.5 mg of IV digoxin now to start to affect is rate and I did want to use and a negative inotrope in fear of dropping pressure across the lesion Time Spent With Patient Time: Total time managing care of this patient today 45____ minutes.
== END 2023-02-02 16:29 | disposition short-term general hospital (02) | DRG 201 ==
LOC: HO.ED 22:23 → HO.EDOVER 23:58
PROVIDERS: Internal Medicine; Admitting Provider Student in an Organized Health Care Education/Training Program; Emergency Provider Emergency Medicine Emergency Medical Services; PCP Internal Medicine; Visit Provider Nurse Practitioner Acute Care
DX: I48.92 Unspecified atrial flutter (principal); I63.412 Cerebral infarction due to embolism of left middle cerebral artery; I50.33 Acute on chronic diastolic (congestive) heart failure; G81.91 Hemiplegia, unspecified affecting right dominant side; E66.01 Morbid (severe) obesity due to excess calories; Z68.32 Body mass index [BMI] 32.0-32.9, adult; I42.0 Dilated cardiomyopathy; F10.11 Alcohol abuse, in remission; R29.713 NIHSS score 13; R47.01 Aphasia; Z87.891 Personal history of nicotine dependence; Z79.899 Other long term (current) drug therapy
CPT/HCPCS: 36415; 70450; 70496; 70498; 71045; 80048; 80307; 82550; 82947; 84443; 84484; 85025; 85610; 93005; 99285; J1160; J2997; Q9967

== ENCOUNTER 2023-05-24 14:55 | Emergency (ER) | payer OTHER, SELFPAY ==
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
[2023-05-24 15:07] VITALS: BP 132/66; PULSE 62; RESP 16; TEMP 36.8; O2SAT 96; BMI 30.7
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
== END 2023-05-24 17:00 | disposition home or self-care (01) ==
PROVIDERS: Emergency Provider Student in an Organized Health Care Education/Training Program
DX: Z04.1 Encounter for examination and observation following transport accident (principal); M25.512 Pain in left shoulder; M79.605 Pain in left leg; Z87.891 Personal history of nicotine dependence; Z86.73 Personal history of transient ischemic attack (TIA), and cerebral infarction without residual deficits; Z79.899 Other long term (current) drug therapy
CPT/HCPCS: 70450; 72125; 73030; 73590; 99282; 99284

== ENCOUNTER 2024-10-29 05:34 | Emergency (ER) | payer OTHER, SELFPAY ==
--- NOTE | 2024-10-29 | ECG_ITS ---
Test Reason : REPEAT Blood Pressure : */* mmHG Vent. Rate : 87 BPM Atrial Rate : 87 BPM P-R Int : 156 ms QRS Dur : 94 ms QT Int : 378 ms P-R-T Axes : 67 63 50 degrees QTcB Int : 454 ms Normal sinus rhythm Normal ECG Referred By: Mi Kumari Electronically Signed By: Alireza Bailey
--- NOTE | ~2024-10-29 | CT_ITS ---
EXAMINATION: CT ANGIOGRAM CHEST CLINICAL INFORMATION: Atrial fibrillation. Chest pain. COMPARISON: None available. TECHNIQUE: Multiple axial images were obtained through the chest after the administration of 65 mL of Omnipaque 350 intravenous contrast. Extensive vascular post-processing including two-dimensional and three-dimensional reformatted images were created and reviewed on an independent workstation. SmartPrep technique. This CT examination was performed using dose optimization techniques as appropriate, variously including the following: *Automated exposure control *Adjustment of mA and/or kV according to patient size (this includes techniques or standardized protocols for targeted exams where dose is matched to indication/reason for exam; i.e. extremities or head) *Use of iterative reconstruction technique. DLP: 397 mGy centimeter. FINDINGS: Normal patency of the main pulmonary artery and its main branches without intraluminal filling defects. No aneurysm or dissection, thoracic aorta. Patchy pulmonary groundglass in the periphery of the lower lung lobes. The airway is patent. No gross consolidation, pleural effusion or pneumothorax. No bronchiectasis. No honeycombing. No pericardial effusion. No lymphadenopathy, mediastinum or perihilar. Punctate calcification in the right thyroid lobe. Multilevel cervical thoracic and upper lumbar spondylosis without acute fracture or listhesis. No lytic or blastic lesions. No acute rib fracture. Sternum is intact. The clavicles are intact. Scapula are intact.. CT/CT angio chest PE protocol IMPRESSION: No acute pulmonary artery emboli. No aneurysm or dissection thoracic aorta. Atelectasis, lung bases. Fleischner guidelines were followed. Electronically signed by: Jose Batista MD 10/29/2024 09:14 AM EDT
--- NOTE | ~2024-10-29 | XR_ITS ---
CLINICAL HISTORY: chest pain 2 view chest x-ray Comparison: CR/SR - XR CHEST 1V - 02/01/23 22:13 EDT Findings: Mild left retrocardiac atelectasis. No significant pleural effusion or pneumothorax. Similar prominent/enlarged cardiac silhouette. No acute fracture. IMPRESSION: Mild left retrocardiac atelectasis. This document has been electronically signed by: Lukas Jarvis MD on 10/29/2024 06:21:28
[2024-10-29 05:45] VITALS: BP 130/92; PULSE 105; RESP 19; TEMP 37.1; O2SAT 96; BMI 32.8
[2024-10-29 06:02] LABS: Basophils Percent Auto 0.2 % (0-2); Eosinophils Percent Auto 0.2 % (0-4); Hematocrit 47.5 % (42.0-52.0); Hemoglobin 16.7 g/dl (14.0-18.0); Imm Gran Abs Auto 0.04 X10*3/uL (0.00-0.03); Imm Gran Pct Auto 0.3 % (0.0-0.4); Lymphocytes Absolute Auto 0.5 X10*3/uL (1.2-4.9); Lymphocytes Percent Auto 4.3 % (20-40); MANUAL DIFF FLAG SCAN; Mean Corpuscular HGB Conc 35.2 g/dl (31.0-36.0); Mean Corpuscular Hemoglobin 31.3 pg (27.0-33.0); Mean Platelet Volume 9.5 fL (9.4-12.4); Monocytes Absolute Auto 0.5 X10*3/uL (0.1-1.2); Monocytes Percent Auto 3.8 % (2-11); Neutrophils Absolute Auto 11.3 x10*3/uL (2.0-8.3); Neutrophils Percent Auto 91.2 % (45-73); Platelet Count 244 X10*3/uL (160-400); Red Blood Count 5.34 X10*6/uL (4.60-5.80); Red Cell Distribution Width 14.7 % (11.0-16.0); SCAN SMEAR FLAG 1; White Blood Count 12.4 X10*3/uL (4.8-10.8)
[2024-10-29 06:21] LABS: Troponin-I High Sensitivity < 2.7 ng/L (<3.5-35.0)
[2024-10-29 06:21] LABS: Alanine Aminotransferase 33 U/L (0-40); Albumin Level 4.1 g/dL (3.5-5.0); Alkaline Phosphatase 84 U/L (39-117); Anion Gap 15 (12-20); Aspartate Amino Transferase 26 U/L (5-37); Bilirubin Direct 0.3 mg/dL (0.0-0.5); Bilirubin Total 0.8 mg/dL (0.0-1.0); Blood Urea Nitrogen 13 mg/dL (9-16); Calcium 8.8 mg/dL (8.4-10.2); Carbon Dioxide 21 mmol/L (22-29); Chloride 108 mmol/L (96-108); Estimated Glomerular Filt Rate > 60; Glucose Random 156 mg/dL (60-115); Potassium 3.6 mmol/L (3.3-5.1); Sodium 140 mmol/L (135-145); Total Protein 7.7 g/dL (6.5-8.0)
[2024-10-29 06:22] LABS: SLIDE REVIEW VERIFIED
--- OUTSIDE RECORDS SUMMARY | 2024-10-29 06:30 | XMS_ITS | Clinical Summary ---
Author Organization [facility] it Address [address] [place] [address] Care Team Providers Care Supply Chain Project Manager Name Role Phone Lino Stone MD Primary Care Provider [phone] Allergies No known active allergies Medications atorvastatin (LIPITOR) 80 mg tablet TAKE 1 TABLET BY MOUTH EVERY DAY 90 tablet 1 4 Active acetaminophen (TYLENOL) 325 mg tablet Take 2 Tablets by mouth every 4 hours as needed. Active apixaban (Eliquis) 5 mg tablet Take 5 mg by mouth 2 times daily. 3 Active cholecalciferol (VITAMIN D-3) 50 mcg (2,000 unit) tablet Take 1 Tablet by mouth daily. 4 Active docusate sodium (COLACE) 100 mg capsule Take 1 Capsule by mouth 2 times daily. Active empagliflozin (Jardiance) 10 mg tablet Take 1 Tablet by mouth daily. 4 Active LORazepam (ATIVAN) 1 mg tablet Take 1 Tablet by mouth every 6 hours as needed. Active metoprolol succinate (TOPROL-XL) 100 mg 24 hr tablet Take 1 Tablet by mouth daily. 4 Active multivit-min/iron /folic acid/K (ADULTS MULTIVITAMIN ORAL) Take 1 Tablet by mouth daily. Active sacubitriL-valsar sandoval (Entresto) 24-26 mg per tablet Take 1 Tablet by mouth 2 times daily. 3 Active sertraline (ZOLOFT) 50 mg tablet Take 1 Tablet by mouth daily. 4 Active spironolactone (ALDACTONE) 25 mg tablet Take 1 Tablet by mouth daily. 4 Active Active Problems Problem Noted Date Diagnosed Date Acute ischemic left MCA stroke 02/14/2023 Chronic combined systolic an d diastolic CHF (congestive heart failure) 02/14/2023 Obesity (BMI 30.0-34.9) 02/14/2023 Paroxysmal atrial fibrillation 02/14/2023 Prediabetes 02/14/2023 Immunizations Name Administration Dates Next Due Influenza Quadravalent, MDCK , 0.5ml, preservative free (Flucelvax) 6mo and older 05/07/2023 Surgical History Surgery Date Site/Laterality Comments HAND SURGERY PROCEDURE: HISTORICAL HAND SURGERY Medical History Medical History Date Comments CHF (congestive heart failure) (CMS/HCC) DX:CHF (congestive heart failure) ([facility]) Asymptomatic varicose veins of lower extremity DX:Asymptomatic varicose vei ns of lower extremity Snoring DX:Snoring Family History Medical History Relation Name Comments Colon cancer Aunt Diabetes Father Coronary artery disease Mother Other: a.fib Mother Relation Name Status Comments Aunt Alive Father Mother Social History Tobacco Use Types Packs/Day Years Used Date Smoking Tobacco: Former Cigarettes Q uit: 01/13/2023 Smokeless Tobacco: Never Alcohol Use Standard Drinks/Week Comments Not Currently 0 (1 standard drink = 0.6 oz pur e alcohol) Sex and Gender Information Value Date Recorded Sex Assigned at Not on file Legal Sex Male 8:46 PM EST Gender Identity Not on file Sexual Orientation Not on file Obstetrics History Last Filed Vital Signs Vital Sign Reading Time Taken Comments Blood Pressure 130/80 10/10/2023 10:24 AM EST Pulse 60 10/10/2023 10:24 AM EST Temperature - - Respiratory Rate - - Oxygen Saturation - - Inhaled Oxygen Concentration - - Weight 104 kg (230 lb) 10/10/2023 10:24 AM EST Height 180.3 cm (5' 11 ) 10/10/2023 10:24 AM EST Body Mass Index 32.08 10/10/2023 10:24 AM EST Plan of Treatment Upcoming Encounters Date Type Department Care Team (Late st Contact Info) Description 11/16/2024 1:30 PM EDT Office Visit Adult Medicine [address] [phone] Lino Stone MD [address] [place] [id number] Health Maintenance Due Date Last Done Comments DTaP,Tdap,and Td Vaccines (1 - Tdap) 2000 Hepatitis B Vaccines (1 of 3 - 19+ 3-dose series) 2000 Pneumococcal Vaccine: Pediat rics (0 to 5 Years) and At-Risk Patients (6 to 64 Years) (1 of 2 - PCV) 2000 HIV Screening 09/06/2023 Hepatitis C Screening 09/06/2023 Social Influencers of Health Screening 09/06/2023 COVID-19 Vaccine (1 - 2023-2 5 season) 2024 Influenza Vaccine (#1) 2024 05/07/2023 Hypertension/CHF/CAD Annual BMP Blood Test 10/14/2024 10/15/2023 Depression Screening 11/22/2024 11/23/2023 Cholesterol Screening (Lipid Panel) 10/14/2028 10/15/2023 HIB Vaccines Aged Out No longer eligi ble based on patient's age to complete this topic HPV Vaccines Aged Out No longer eligi ble based on patient's age to complete this topic Hepatitis A Vaccines Aged Out No long er eligible based on patient's age to complete this topic IPV Vaccines Aged Out No longer eligi ble based on patient's age to complete this topic MMR Vaccines Aged Out No longer eligi ble based on patient's age to complete this topic Meningococcal ACWY Vaccine Aged Out N o longer eligible based on patient's age to complete this topic Meningococcal B Vacine Aged Out No lo nger eligible based on patient's age to complete this topic RSV Immunization Patients Un alyson 20 months Aged Out No longer eligible b ased on patient's age to complete this topic Varicella Vaccines Aged Out No longer eligible based on patient's age to complete this topic Procedures Procedure Name Priority Date/Time Associated Diagnosis Comments DEPRESSION SCREENING Routine 11/23/2023 ANNUAL BMP BLOOD TEST Routine 10/15/2023 LIPID PANEL Routine 10/15/2023 from Last 3 Months or Most Recently Relevant to Health Maintenance Results * Depression Screening (11/23/2023) Pathologist [facility] Depression Screening Abstracted Historical Provider HEALTH MAINTENANCE Final Result * Annual BMP Blood Test (10/15/2023) Pathologist [facility] Annual BMP Blood Test Abstracted Historical Provider HEALTH MAINTENANCE Final Result * (ABNORMAL) Lipid panel (10/15/2023) [facility] LDL/HDL Ratio 2 0 - 4 Triglycerides 115 0 - 150 mg/dL Cholesterol 83 0 - 200 mg/dL HDL 34(A) >=40 mg/dL LDL Cholesterol 26 0 - 100 mg/dL Blood Venous blood specimen / Unknown Historical Provider LAB BLOOD ORDERABLES Grace l Result from Last 3 Months or Most Recently Relevant to Health Maintenance Insurance [facility] [employer] Care Teams Supply Chain Project Manager Relationship Specialty Start Date End Date Lino Stone MD [address] [place] [id number] PCP - General 12/12/22
--- NOTE | 2024-10-29 06:53 | ED_ITS ---
HPI - Chest Pain General Chief Complaint: Chest Pain Stated Complaint: CP Time Seen by Provider: 10/29/24 06:52 Source: patient Mode of arrival: ambulatory Limitations: no limitations History of Present Illness ED Provider: Mi Kumari PA-C HPI narrative: Patient is a 44 year old assigned male at with a history of CVA, stroke, atrial flutter, dilated cardiomyopathy, and CHF presenting to the emergency department today with chest pain, nausea, vomiting, and diarrhea. Patient states that over the last 2 days he has had intermittent chest pain during basketball playing as well as nausea, vomiting, and diarrhea. Patient denies any dizziness, lightheadedness, abdominal pain, fever, chills, blurry vision, double vision, loss of vision, difficulty breathing, shortness of breath, back pain, night sweats, pain with urination, increased urinary frequency, increased urinary urgency, blood in his urine or stool, syncope or a near syncopal episode, recent trauma or falls, bowel incontinence, bladder incontinence, or any other complaints at this time. Patient states that he has not been on any anti- coagulation or medications of any kind for 4-5 months because of losing his insurance. Related Data Home Medications ?Medication ?Instructions ?Recorded ?Confirmed bisoprolol fumarate 5 mg tablet 1.25 mg PO DAILY 02/02/23 02/02/23 spironolactone 25 mg tablet 25 mg PO DAILY 02/02/23 02/02/23 Previous Rx's ?Medication ?Instructions ?Recorded empagliflozin 10 mg tablet 10 mg PO DAILY #30 tabs 01/16/23 (Jardiance) multivitamin (Daily-Sara tablet) 1 tab PO DAILY #30 tabs 01/16/23 sacubitril 24 mg-valsartan 26 mg 1 tab PO BID #60 tabs 01/16/23 tablet (Entresto) apixaban 5 mg tablet (Eliquis) 5 mg PO BID #60 tabs 10/29/24 Allergies Allergy/AdvReac Type Severity Reaction Status Date / Time No Known Allergies Allergy Verified 10/29/24 05:45 [No Known Allergies*] Review of Systems 2 Constitutional: Constitutional: Reports no additional constitutional complaints, Denies chills, Denies fever(s) and Denies night sweats Eyes: Eyes: Reports no additional eye complaints, Denies blurry vision, Denies change in vision, Denies diplopia, Denies eye discharge, Denies loss of vision and Denies eye pain ENT: Denies dizziness Cardiovascular: Cardiovascular: Reports no additional cardiovascular complaints, Reports chest pain (while playing basketball), Denies lightheadedness, Denies Loss of Consciousness and Denies dyspnea Respiratory: Respiratory: Reports no additional respiratory complaints and Denies dyspnea Gastrointestinal: Gastrointestinal: Reports no additional gastrointestinal complaints, Denies abdominal pain, Denies melena, Denies hematochezia, Denies change in bowel habits, Denies change in stool character, Reports diarrhea, Reports nausea and Reports vomiting Genitourinary: Genitourinary: Reports no additional male genitourinary complaints, Denies hematuria, Denies oliguria, Denies difficulty urinating, Denies dysuria, Denies urinary frequency, Denies urinary hesitancy, Denies urinary incontinence and Denies urinary urgency Musculoskeletal: Musculoskeletal: Reports no additional musculoskeletal complaints, Denies numbness and Denies tingling Neurologic: Denies dizziness, Denies loss of vision, Denies numbness and Denies tingling Psychiatric: Psychiatric: Reports no additional psychiatric complaints Endocrine: Endocrine: Reports no additional endocrine complaints Hematologic/Lymphatic: Hematologic/Lymphatic: Reports no additional hematologic/lymphatic complaints Allergic/Immunologic: Allergic/Immunologic: Reports no additional allergic/immunologic complaints PMF Past Medical History Attestation statement: The following information was validated with the patient. Source: old records reviewed and nursing notes reviewed Medical History CHF (congestive heart failure) Alcohol use disorder Acute HFrEF (heart failure with reduced ejection fraction) Acute exacerbation of CHF (congestive heart failure) No pertinent past medical history Surgical History H/O thumb surgery Family History Family History Mother CHF (congestive heart failure) CAD (coronary artery disease) Social History Social History Household Members: Family Housing: Apartment Do you presently have visiting nurse or other home services: No Alcohol intake: former Patient Tobacco Use Status: Former Tobacco user Tobacco use type: Cigarette Smoked in Last 30 Days: No Second Hand Smoke Exposure: No Use of substances other than those prescribed or required for medical reasons: No Substance Use Type: Marijuana Advance Directives: No Advance Directives Information Provided: Yes Do you have a plan to hurt others: No Plan service: No Current occupational status: employed Physical Exam 2 Vital Signs: Vital Signs: Last Vital Signs Temp 98.2 F 10/29/24 09:54 Pulse 72 10/29/24 09:54 Resp 16 10/29/24 09:54 BP 126/82 10/29/24 09:54 Pulse Ox 96 10/29/24 09:54 O2 Del Method Room Air 10/29/24 09:54 BMI result Body Mass Index 32.8 Const: General: cooperative, no acute distress, alert and awake Nutritional Appearance: well nourished Orientation/consciousness: patient oriented x3 Limitations: no limitations HEENT: Head: Yes normal to inspection and Yes atraumatic Ears: hearing grossly normal bilaterally and external ears normal General nose exam: Normal external nose present, no nasal discharge noted and no epistaxis Face and sinus: Yes normal facial exam, No abrasion and No laceration Mouth: Normal oral and palatal mucosa present, no drooling and no muffled voice Eyes: General: appearance normal, both eyes and all related structures P eriorbital: periorbital findings normal Eyelids: Yes eyelids normal C onjunctivae: conjunctivae normal Pupils: Equal, round and reactive pupils present EOM: EOMs intact bilaterally Neck: Neck: Yes normal visual inspection, Yes full ROM and Yes no lymphadenopathy Chest: Chest palpation & inspection: normal inspection of the chest Resp: Effort & Inspection: normal respiratory effort and able to speak in complete sentences GI: Inspection: Yes normal to inspection Neuro: General: patient oriented x3, moves all extremities and CN's II-XI intact bilaterally Cranial nerves: Yes Equal, round and reactive pupils present Cognition (Neuro): normal cognition Extrem: General: Yes normal to inspection, Yes full ROM and Yes capillary refill normal Psych: Appearance: grossly normal Mental Status: mental status grossly normal Affect: normal affect Attitude: cooperative Thought process: N ormal thought process present Thought content: Normal thought content present Insight: Good insight present (Psych) Medications Administered Discontinued Medications Generic Name Dose Route Start Last Admin Trade Name Freq PRN Reason Stop Dose Admin Sodium Chloride 1,000 mls @ 999 mls/hr 10/29/24 07:00 10/29/24 07:34 Ns IV 10/29/24 08:00 999 mls/hr .Q1H1M MICK Administration Iohexol 100 ml 10/29/24 08:48 10/29/24 08:49 Iohexol 350 Mg/Ml 100 Ml Infus..Btl IV 10/29/24 08:49 65 ml ONCE ONE Administration Ketorolac Tromethamine 15 mg 10/29/24 06:55 10/29/24 07:30 Ketorolac Tromethamine 15 Mg/Ml Vial IVPUSH 10/29/24 06:56 15 mg ONCE ONE Administration Ondansetron HCl 4 mg 10/29/24 06:55 10/29/24 07:30 Ondansetron Hcl 4 Mg/2 Ml Vial IVPUSH 10/29/24 06:56 4 mg ONCE ONE Administration Pantoprazole Sodium 40 mg 10/29/24 06:57 10/29/24 07:30 Pantoprazole Sodium 40 Mg/10 Ml Vial IVPUSH 10/29/24 06:58 40 mg ONCE ONE Administration Medical Decision Making Medical Decision Making [facility] Narrative: Patient is a 44 year old assigned male at with a history of CVA, stroke, atrial flutter, dilated cardiomyopathy, and CHF presenting to the emergency department today with chest pain, nausea, vomiting, and diarrhea. Patient's physical exam was unremarkable. Patient's blood work was unremarkable. Patient's EKG was unremarkable - sinus rhythm. Patient's chest x-ray showed no acute process. Given patient's complaints and lack of anti-coagulant medication over the last few months, I obtained a CT PE study which was negative. I explained my physical exam findings as well as all test results to the patient. I answered all questions asked by the patient. Patient received IV Zofran, protonix, and fluids which, upon re-evaluation, he stated it helped his symptoms significantly. I stressed the importance of the patient taking his medication as directed (either prescribed or as the over the counter packaging recommends). 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 Patient has re-established his health insurance and has requested a refill of his Eliquis which I provided. I stressed the importance of the patient returning to the emergency department immediately if his symptoms were to worsen or if he were to develop any dizziness, shortness of breath, difficulty breathing, chest pain, blurry vision, loss of vision, nausea, vomiting, abdominal pain, fever, chills, back pain, or any other complaints. Patient verbalized agreement and understanding with this treatment plan and discharge. Differential Diagnosis Differential Diagnoses: The differential diagnosis associated with the presentation includes Atypical chest pain Nausea / vomiting Viral illness Chest wall pain NSTEMI STEMI PE Admission/Observation Consideration of admission/observation: Escalation of care including admission/observation considered Patient would have been admitted to the hospital had his work up had any findings where hospital admission was appropriate and his clinical presentation warranted hospital admission. Lab Data [facility] Lab Attestation statement: I reviewed the patient's lab results. My interpretation of these results are in the [facility] Rationale portion of this note. 10/29/24 05:56 10/29/24 05:56 Labs: Lab Results 10/29/24 10/29/24 10/29/24 Range/Units 05:55 05:56 07:54 WBC 12.4 H (4.8-10.8) X10*3/uL RBC 5.34 (4.60-5.80) X10*6/uL Hgb 16.7 (14.0-18.0) g/dl Hct 47.5 (42.0-52.0) % MCV 89.0 (80.0-98.0) fL MCH 31.3 (27.0-33.0) pg MCHC 35.2 (31.0-36.0) g/dl RDW 14.7 (11.0-16.0) % Plt Count 244 (160-400) X10*3/uL MPV 9.5 (9.4-12.4) fL Immature Gran % (Auto) 0.3 (0.0-0.4) % Neut % (Auto) 91.2 H (45-73) % Lymph % (Auto) 4.3 L (20-40) % Heard % (Auto) 3.8 (2-11) % Eos % (Auto) 0.2 (0-4) % Baso % (Auto) 0.2 (0-2) % Lymph # (Auto) 0.5 L (1.2-4.9) X10*3/uL Heard # (Auto) 0.5 (0.1-1.2) X10*3/uL Eos # (Auto) 0.0 (0.0-0.4) X10*3/uL Baso # (Auto) 0.0 (0.0-0.2) X10*3/uL Abs Immat Gran (auto) 0.04 H (0.00-0.03) X10*3/uL Absolute Neuts (auto) 11.3 H (2.0-8.3) x10*3/uL Absolute Nucleated RBC 0.000 (0.0-0.012) X10*3/uL Nucleated RBC % (auto) 0.0 (0.0-0.2) /100WBC Smear Tech's Comments VERIFIED Sodium 140 (135-145) mmol/L Potassium 3.6 (3.3-5.1) mmol/L Chloride 108 (96-108) mmol/L Carbon Dioxide 21 L (22-29) mmol/L Anion Gap 15 (12-20) BUN 13 (9-16) mg/dL Creatinine 0.80 (0.5-1.4) mg/dL Estim Creat Clear Calc 148.0 Estimated GFR > 60 Random Glucose 156 H (60-115) mg/dL Calcium 8.8 D (8.4-10.2) mg/dL Magnesium 1.9 (1.6-2.6) mg/dL Total Bilirubin 0.8 (0.0-1.0) mg/dL Direct Bilirubin 0.3 (0.0-0.5) mg/dL AST 26 (5-37) U/L ALT 33 (0-40) U/L Alkaline Phosphatase 84 (39-117) U/L Troponin I High Sens < 2.7 D < 2.7 (<3.5-35.0) ng/L Total Protein 7.7 (6.5-8.0) g/dL Albumin 4.1 (3.5-5.0) g/dL Influenza Type A (PCR) (Negative) Influenza Type B (PCR) (Negative) RSV RNA Qual (PCR) (Negative) SARS-CoV-2 RNA (RT-PCR) (Negative) 10/29/24 Range/Units 08:31 WBC (4.8-10.8) X10*3/uL RBC (4.60-5.80) X10*6/uL Hgb (14.0-18.0) g/dl Hct (42.0-52.0) % MCV (80.0-98.0) fL MCH (27.0-33.0) pg MCHC (31.0-36.0) g/dl RDW (11.0-16.0) % Plt Count (160-400) X10*3/uL MPV (9.4-12.4) fL Immature Gran % (Auto) (0.0-0.4) % Neut % (Auto) (45-73) % Lymph % (Auto) (20-40) % Heard % (Auto) (2-11) % Eos % (Auto) (0-4) % Baso % (Auto) (0-2) % Lymph # (Auto) (1.2-4.9) X10*3/uL Heard # (Auto) (0.1-1.2) X10*3/uL Eos # (Auto) (0.0-0.4) X10*3/uL Baso # (Auto) (0.0-0.2) X10*3/uL Abs Immat Gran (auto) (0.00-0.03) X10*3/uL Absolute Neuts (auto) (2.0-8.3) x10*3/uL Absolute Nucleated RBC (0.0-0.012) X10*3/uL Nucleated RBC % (auto) (0.0-0.2) /100WBC Smear Tech's Comments Sodium (135-145) mmol/L Potassium (3.3-5.1) mmol/L Chloride (96-108) mmol/L Carbon Dioxide (22-29) mmol/L Anion Gap (12-20) BUN (9-16) mg/dL Creatinine (0.5-1.4) mg/dL Estim Creat Clear Calc Estimated GFR Random Glucose (60-115) mg/dL Calcium (8.4-10.2) mg/dL Magnesium (1.6-2.6) mg/dL Total Bilirubin (0.0-1.0) mg/dL Direct Bilirubin (0.0-0.5) mg/dL AST (5-37) U/L ALT (0-40) U/L Alkaline Phosphatase (39-117) U/L Troponin I High Sens (<3.5-35.0) ng/L Total Protein (6.5-8.0) g/dL Albumin (3.5-5.0) g/dL Influenza Type A (PCR) NEGATIVE (Negative) Influenza Type B (PCR) NEGATIVE (Negative) RSV RNA Qual (PCR) NEGATIVE (Negative) SARS-CoV-2 RNA (RT-PCR) NEGATIVE (Negative) Independent Interpretation I performed an independent interpretation of an: EKG, Plain X-Ray and CT Scan Interpretation: My interpretation is in agreement with the radiologist's impression of these imaging studies. L Report Number: [id number]: Total DLP = 397.00 mGy-cm EXAMINATION: CT ANGIOGRAM CHEST CLINICAL INFORMATION: Atrial fibrillation. Chest pain. COMPARISON: None available. TECHNIQUE: Multiple axial images were obtained through the chest after the administration of 65 mL of Omnipaque 350 intravenous contrast. Extensive vascular post-processing including two-dimensional and three- dimensional reformatted images were created and reviewed on an independent workstation. SmartPrep technique. This CT examination was performed using dose optimization techniques as appropriate, variously including the following: *Automated exposure control *Adjustment of mA and/or kV according to patient size (this includes techniques or standardized protocols for targeted exams where dose is matched to indication/reason for exam; i.e. extremities or head) *Use of iterative reconstruction technique. DLP: 397 mGy centimeter. FINDINGS: Normal patency of the main pulmonary artery and its main branches without intraluminal filling defects. No aneurysm or dissection, thoracic aorta. Patchy pulmonary groundglass in the periphery of the lower lung lobes. The airway is patent. No gross consolidation, pleural effusion or pneumothorax. No bronchiectasis. No honeycombing. No pericardial effusion. No lymphadenopathy, mediastinum or perihilar. Punctate calcification in the right thyroid lobe. Multilevel cervical thoracic and upper lumbar spondylosis without acute fracture or listhesis. No lytic or blastic lesions. No acute rib fracture. Sternum is intact. The clavicles are intact. Scapula are intact. CT/CT angio chest PE protocol IMPRESSION: No acute pulmonary artery emboli. No aneurysm or dissection thoracic aorta. Atelectasis, lung bases. Fleischner guidelines were followed. Electronically signed by: Jose Batista MD 10/29/2024 09:14 AM EDT RP Dictated By: Jose Blackwood MD Signed By: Electronically signed by Jose Lopez MD 10/29/24 0914 CLINICAL HISTORY: chest pain 2 view chest x-ray Comparison: CR/SR - XR CHEST 1V - 02/01/23 22:13 EDT Findings: Mild left retrocardiac atelectasis. No significant pleural effusion or pneumothorax. Similar prominent/enlarged cardiac silhouette. No acute fracture. IMPRESSION: Mild left retrocardiac atelectasis. This document has been electronically signed by: Lukas Jarvis MD on 10/29/2024 06:21:28 Dictated By: Lukas Jarvis MD Signed By: Electronically signed by Lukas Jarvis MD 10/29/24 0622 I independently interpreted this EKG and am in agreement with the below findings: Vent. Rate: 87 BPM Atrial Rate: 87 BPM P-R Int: 156 ms QRS Dur: 94 ms QT Int: 378 ms P-R-T Axes: 67 63 50 degrees QTcB Int: 454 ms Normal sinus rhythm Normal ECG DD/ 0725 Radiology Impression Discussion of test interpretation with radiology: I have reviewed the radiologist's reading. 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 Return to the emergency department immediately if your symptoms worsen or if you develop any numbness, tingling, dizziness, shortness of breath, difficulty breathing, chest pain, blurry vision, loss of vision, nausea, vomiting, abdominal pain, fever, chills, back pain, or any other complaints. Please see the information below about our Patient Portal. If you are not yet enrolled in the [facility] Patient Portal, you will receive an enrollment email invitation following your visit to any [facility] setting. You may also self-enroll in the Patient Portal by visiting our website: [email or web address] The following information is required to access the Patient Portal: - Your [facility] Medical Record Number - Your personal home email address (must match what is in your electronic medical record, Registration staff can assist with this) - Name - Date of Capabilities of the Patient Portal: - Message some providers - View upcoming appointments - Access your health summary, medical history, and visit history - View current conditions and allergies - View procedure and lab results - View your medications, including guidelines, side effects, and precautions - Complete pre-appointment questionnaires requested by your provider - Ready summary reports of your office visits and procedures To access the Patient Portal Mobile Ronnie, follow these directions: - Search [employer] in the [employer]nie Store or [employer] Store - Download the Ronnie - Search for [facility] - Enter your login/password Prescriptions: New Eliquis 5 mg tablet 5 mg PO BID Qty: 60 0RF No Action Entresto 24-26 mg Tablet 1 tab PO BID Qty: 60 0RF Protocol: Hold for SBP< HOLD for SBP < : 90 Jardiance 10 mg Tablet 10 mg PO DAILY Qty: 30 0RF multivitamin [Daily-Sara] Tablet 1 tab PO DAILY Qty: 30 0RF spironolactone 25 mg tablet 25 mg PO DAILY bisoprolol fumarate 5 mg tablet 1.25 mg PO DAILY Referrals: [facility] Family Medicine [Provider Group] (Call to establish and follow up with a primary care provider. If you already have a primary care provider, please follow up with them.) [facility] Primary Care, [place] [Provider Group] (Call to establish and follow up with a primary care provider. If you already have a primary care provider, please follow up with them.) [facility] Primary Care,Jessy [Provider Group] (Call to establish and follow up with a primary care provider. If you already have a primary care provider, please follow up with them.) [facility] Primary CareDonte [Provider Group] (Call to establish and follow up with a primary care provider. If you already have a primary care provider, please follow up with them.) Stand Alone Forms: Work/School Release Print Language: Ecuadorean
[2024-10-29 07:24] LABS: Magnesium 1.9 mg/dL (1.6-2.6)
[2024-10-29] MEDS: Ketorolac Tromethamine 15 MG/ML VIAL IVPUSH (07:30)
[2024-10-29] MEDS: Pantoprazole Sodium 40 MG/10 ML VIAL IVPUSH (07:30)
[2024-10-29] MEDS: ondansetron HCL 4 MG/2 ML VIAL IVPUSH (07:30)
[2024-10-29] MEDS: 0.9 % Sodium Chloride 1,000 ML 999 ML IV (07:34)
[2024-10-29 07:36] VITALS: BP 123/79; PULSE 78; RESP 20; TEMP 36.8; O2SAT 96
[2024-10-29 08:00] VITALS: BP 129/75; PULSE 87; RESP 16; TEMP 36.8; O2SAT 95
[2024-10-29 08:26] LABS: Troponin-I High Sensitivity < 2.7 ng/L (<3.5-35.0)
[2024-10-29] MEDS: iohexoL 350 MG/ML 100 ML INFUS..BTL IV (08:49)
[2024-10-29 09:15] LABS: Influenza A PCR NEGATIVE (Negative); Influenza B PCR NEGATIVE (Negative); Resp Syncy Virus RNA Qual PCR NEGATIVE (Negative); SARS COV2 PCR INHOUSE NEGATIVE (Negative)
[2024-10-29 09:54] VITALS: BP 126/82; PULSE 72; RESP 16; TEMP 36.8; O2SAT 96
== END 2024-10-29 10:10 | disposition home or self-care (01) ==
PROVIDERS: Physician Assistant Medical; Emergency Provider Emergency Medicine
DX: R07.89 Other chest pain (principal); R11.2 Nausea with vomiting, unspecified; I50.21 Acute systolic (congestive) heart failure; I48.92 Unspecified atrial flutter; F12.90 Cannabis use, unspecified, uncomplicated; Z87.891 Personal history of nicotine dependence; Z86.73 Personal history of transient ischemic attack (TIA), and cerebral infarction without residual deficits; Z03.818 Encounter for observation for suspected exposure to other biological agents ruled out
CPT/HCPCS: 0241U; 36415; 71046; 71275; 80048; 80076; 83735; 84484; 85025; 93005; 96374; 96375; 99284; 99285; J1885; J2405; J2470; Q9967

== ENCOUNTER → 2024-10-29 06:05 | Outpatient (BNV) | payer SELFPAY | PROVIDERS: Visit Provider Radiology Diagnostic Radiology | DX: J98.11 Atelectasis (principal); I48.91 Unspecified atrial fibrillation | CPT/HCPCS: 71046; 71275 ==

== ENCOUNTER → 2024-10-29 07:25 | Outpatient (BNV) | payer OTHER, SELFPAY | PROVIDERS: Emergency Provider Emergency Medicine; Visit Provider Internal Medicine Cardiovascular Disease | DX: Z13.6 Encounter for screening for cardiovascular disorders (principal) | CPT/HCPCS: 93010 ==